=== PATIENT | female | born 1935 | race Caucasian/White ===

== ENCOUNTER 2016-07-29 04:35 | Emergency (ER) | payer OTHER ==
[~2016-07-29] VITALS: Ht 160 cm; Wt 56.0 kg
[~2016-07-29 04:35] MED LIST: ATEN-175 PO; MULT-188 PO
[2016-07-29 04:39] VITALS: TEMP 36.3; Ht 160 cm; Wt 56.0 kg
[2016-07-29] MEDS ORDERED: MoRPHine SULFATE 4 MG/ML 1 ML CARP\\VIAL IV STA (04:52)
[2016-07-29] MEDS ORDERED: ATEN50TA PO (04:57)
--- NOTE | 2016-07-29 05:15 | EMERGENCY ROOM VISIT NOTE ---
History Report prepared by Elana: Paris Ro Under the Supervision of: Dr. Amanda Carty D.O. First contact with patient: 04:41 Chief Complaint: FALL Stated Complaint: FALL RIB PAIN History of Present Illness The patient is a 81 year old female who presents to the Emergency Room with complaints of persistent left sided rib pain staring 36 hours FISHER TRAMMEL NET. The patient rates the pain as an 8/10 in severity and states it feels "like someone is hitting me with a baseball bat." According to EMS personal the patient fell 36 hours FISHER TRAMMEL NET and had increased pain and received morphine and Zofran during transportation to the ED. The patient states that she fell back up getting into a chair. She denies hitting her head, neck pain, abdominal pain, knee pain, buttock pain, nausea, vomiting or cough. The patient states that along with the pain she feels a little short of breath but believe it also might be nerves. She states that after receiving the medication in the ambulance she has some relief of the pain. The patient states that she fell out of her bed and broke her left clavicle but states she does not have any shoulder pain. The patient states she took ibuprofen for the pain at home but it did not relive the pain. Source of History: patient, EMS Onset: 36 hours BLAZE Symptom Intensity: 8/10 Timing: other (persistent) Modifying Factors (Relieving): other (Morphine and Zofran) Associated Symptoms: + SOB, No abdominal pain, No cough, No nausea, No neck pain, No vomiting Note: Patient denies any left should pain, knee pain or buttock pain. Review of Systems See HPI for pertinent positives & negatives. A total of 10 systems reviewed and were otherwise negative. Past Medical & Surgical Medical Problems: (1) Acute renal failure (ARF) (2) Hypertension Family History Noncontributory secondary to age Social History Smoking Status: Former Smoker Marital Status: Housing Status: lives alone Occupation Status: retired Current/Historical Medications Scheduled Atenolol (Tenormin), 50 MG PO DAILY Multiple Vitamins W/ Minerals (Ocuvite), 1 TAB PO QAM Allergies Coded Allergies: No Known Allergies (Unverified , 07/23/16) Physical Exam Vital Signs Date Time Temp Pulse Resp B/P Pulse Ox O2 Delivery O2 Flow Rate FiO2 07/29/16 06:02 66 18 101/54 95 Room Air 07/29/16 04:39 36.3 74 18 151/100 97 Room Air Physical Exam HEENT: Head - normocephalic and atraumatic Pupils are equal, round, and reactive to light. Extraocular eye muscles are intact, and sclera are anicteric. Nose - moist nasal mucosa without discharge. Mouth - moist buccal mucosa. Oropharynx is nonerythematous and there is no tonsillar exudate or edema noted. Neck: Supple; no JVD, nuchal rigidity, cervical lymphadenopathy. Heart: Regular rate and rhythm. There is a normal S1 and S2 with no murmurs, clicks, or gallops appreciated. Lungs: Clear to auscultation bilaterally with no wheezes, rales, or rhonchi. Chest: Pain with palpation at the left sided midaxillary line lateral to the breast tissue and underneath the left breast. No obvious trauma noted to the patient's left chest. Abdomen: Soft, completely nontender, nondistended, with good bowel sounds. There are no palpable pulsatile masses or hepatosplenomegaly. There is no guarding, rigidity, or rebound noted. Extremities: No evidence of cyanosis, clubbing, or edema. There are easily palpable peripheral pulses. Skin: warm and dry with good turgor and no rashes. Medical Decision & Procedures ER Provider Diagnostic Interpretation: CT results as stated below per my review and radiologist interpretation: Preliminary Findings Only--See Final Report For Complete Findings CT CHEST Without Contrast: Centrilobular emphysema. Bibasilar atelectasis and/or scarring. 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 Trace pericardial effusion Small hiatal hernia. Simple cyst within both kidneys. Multiple subacute to chronic appearing rib features, bilaterally. No acute fracture identified. Stable nodule within the right breast measuring up to 15 mm. Correlation with mammogram is recommended Radiologist: Gigi Billy MD Study ready at 0533 and initial results transmitted at 0540 Medications Administered Medications (Trade) Dose Ordered Sig/[place] Route Start Time Stop Time Status Last Admin Dose Admin Morphine Sulfate (MoRPHine SULFATE INJ) 2 mg NOW STAT IV 07/29/16 04:52 07/29/16 04:53 DC 07/29/16 04:57 2 MG Procedure Medications Administered: Morphine Sulfate ED Course 0447: Past medical records reviewed. The patient was evaluated in room B11B. A complete history and physical exam was performed. 0452: Ordered Morphine Sulfate 2 mg IV. The patient went for CT scan of the chest to rule out new rib fractures. 0549: Upon reevaluation, the patient is feeling better after the Morphine. I discussed findings and results with the patient and her daughter who was at her bedside. I discussed outpatient pain medication and they would like to use ibuprofen because the patient hallucinated after using Tramadol and Hydrocodone. The patient verbalized agreement of the treatment plan. The patient was discharged home. Medical Decision The patient is a 81 year old female who presents to the ED with left side rib pain. Differential diagnosis includes rib fracture, chest wall contusion, and pneumothorax. Patient presents to the emergency department after falling and suffering some left-sided chest wall pain. CT scan the chest shows no obvious fractures. The patient had significant relief of the discomfort With IV morphine. She is comfortable at the time of discharge. I've asked the patient to take every precaution to avoid further falls at her age. Impression Primary Impression: Contusion of left chest wall Additional Impression: Fall Scribe Attestation The scribe's documentation has been prepared under my direction and personally reviewed by me in its entirety. I confirm that the note above accurately reflects all work, treatment, procedures, and medical decision making performed by me. Departure Information Dispostion Home / Self-Care Referrals RV. Contreras MD (PCP) Forms HOME CARE DOCUMENTATION FORM, IMPORTANT VISIT INFORMATION Patient Instructions A Signature Page, My [facility] [employer] Additional Instructions Rest. Apply heat to the left rib cage. Ibuprofen - 600mg every 6-8 hours for pain. Do deep breathing exercises Follow up with PCP for a recheck
[2016-07-29 06:02] VITALS: BP 101/54; PULSE 66; O2SAT 95
--- NOTE | 2016-07-29 07:22 | DIAGNOSTIC IMAGING REPORT ---
CT OF THE CHEST WITHOUT IV CONTRAST CLINICAL HISTORY: Fall. Left-sided rib pain. Evaluate left-sided rib fractures. COMPARISON STUDY: Chest CT April 29, 2016 and chest radiograph July 18, 2016. CT DOSE: 193.16 mGy.cm TECHNIQUE: Axial images of the chest were obtained without IV contrast. Images were reviewed in the axial, sagittal, and coronal planes. IV contrast was not administered for this examination. FINDINGS: No enlarged thoracic lymph nodes are present. Mild cardiomegaly is unchanged. There is no pericardial effusion. Aneurysmal dilatation of the descending thoracic aorta is unchanged since CT of April 29, 2016. The aorta measures up to 4.3 cm. A small focal outpouching of the proximal descending thoracic aorta is unchanged. There is a trace left pleural effusion. Moderate emphysema is noted. No acute rib fractures are identified. There are numerous subacute to chronic bilateral rib fractures. There is an old T11 compression fracture as well as an old L2 compression fracture. A 1.5 cm nodule within the upper outer quadrant right breast is again noted. Visualized portions of the upper abdomen demonstrates suspected bilateral renal cysts. IMPRESSION: 1. No pneumothorax. Multiple subacute to chronic appearing bilateral rib fractures. No acute rib fracture identified. 2. Moderate emphysema. 3. Stable aneurysmal dilatation of the descending thoracic aorta since CT of April 29, 2016, measuring up to 4.3 cm. 4. 1.5 cm right breast nodule. A follow-up nonemergent mammogram and ultrasound are recommended. Electronically signed by: Randall Dahl M.D. 07/29/2016 7:21 AM
[2016-08-11] MEDS ORDERED: CEFD1CAP14 PO (11:59)
[2016-08-11] MEDS ORDERED: VTMD PO (11:59)
[2016-08-11] MEDS ORDERED: VTMD1000 PO (11:59)
== END 2016-07-29 06:22 | disposition home or self-care (01) ==
LOC: EDBD 04:35 → C.EDB 04:38
DX: S20.20XA Contusion of thorax, unspecified, initial encounter (principal); W07.XXXA Fall from chair, initial encounter; I10 Essential (primary) hypertension; Z87.891 Personal history of nicotine dependence

== ENCOUNTER 2016-08-04 08:35 | Emergency (ER) | payer OTHER ==
[~2016-08-04] VITALS: Ht 160 cm; Wt 55.0 kg
[~2016-08-04 08:35] MED LIST changes: -ATEN-175 PO; +ATEN50TA PO
[2016-08-04 08:40] VITALS: TEMP 36.3; Ht 160 cm; Wt 55.0 kg
[2016-08-04 09:28] VITALS: O2SAT 95
[2016-08-04 09:36] LABS: BASO % 0.3 %; BASO ABS # 0.04 K/uL (0-0.2); COMPLETE YES; EOS % 0.1 %; HEMATOCRIT 38.8 % (37-47); IG% 0.6 %; LYMPH % 9.7 %; LYMPH ABS # 1.36 K/uL (1.2-3.4); MEAN CELL VOLUME 90.7 fL (80-100); MEAN CORPUSCULAR HEMOGLOBIN 31.5 pg (25-34); MEAN CORPUSCULAR HGB CONC 34.8 g/dl (32-36); MEAN PLATELET VOLUME 9.6 fL (7.4-10.4); MONO % 9.2 %; NEUT % 80.1 %; PLATELET COUNT 395 K/uL (130-400); RED BLOOD COUNT 4.28 M/uL (4.2-5.4); WHITE BLOOD COUNT 14.06 K/uL (4.8-10.8)
[2016-08-04 09:43] LABS: BUN/CREATININE RATIO 24.1 (10-20); CALCIUM 9.5 mg/dl (8.5-10.1); CREATININE 0.74 mg/dl (0.60-1.20); POTASSIUM 3.3 mmol/L (3.5-5.1)
[2016-08-04 09:48] LABS: ALB/GLOB RATIO 0.6 (0.9-2); CKMB/CK RATIO 3.6 (0-3.0); INR 1.1 (0.9-1.1); PARTIAL THROMBOPLASTIN RATIO 1.2; PROTHROMBIN TIME (PATIENT) 11.6 SECONDS (9.0-12.0)
--- NOTE | 2016-08-04 10:05 | DIAGNOSTIC IMAGING REPORT ---
CHEST ONE VIEW PORTABLE HISTORY: Short of breath. COMPARISON: Chest CT 07/29/2016. FINDINGS: There are new patchy airspace opacities within the right mid to lower lung zone. The left lung remains clear. No pneumothorax. Stable blunting of the costophrenic sulci. The heart remains mildly enlarged. There is a tortuous/ectatic thoracic aorta, unchanged. Bilateral rib fractures are again noted. These are likely old. IMPRESSION: Interval development of a right mid to lower lung zone patchy airspace opacity. This likely represents a developing pneumonia. Recommend follow-up to resolution. Electronically signed by: Grover Tomlinson M.D. 08/04/2016 10:04 AM Dictated Date/Time: 08/04/2016 10:02 AM
--- NOTE | 2016-08-04 10:20 | EMERGENCY ROOM VISIT NOTE ---
History Report prepared by Elana: Jasmina Odom Under the Supervision of: Dr. Darrell Sanchez M.D. First contact with patient: 10:06 Chief Complaint: RESPIRATORY PROBLEMS Stated Complaint: COLD/FLU, COUGHING, DIFFICULTY BREATHING Nursing Triage Summary: pt to the ED for resp SOb for the past couple weeks saw PMD and xray did not show anything. pt called daughter today for worsening SOB and feeling off balance. +cough nonproductivce rib fx in march and has continued rib pain on the left side History of Present Illness The patient is an 81 year old female who presents to the Emergency Room with complaints of persistent shortness of breath for the past month, but has worsened within the past two weeks. The patient states that over the past month she has been becoming short of breath with walking short distances, but states that she has a small apartment so she does not walk very far. She states that she has been experiencing a nonproductive cough. The patient denies any history of lung problems. She notes that last week she was vomiting last week, but states that it has resolved. The patient reports normal urination, normal bowel movements, and normal appetite. She reports slight ankle swelling in her left greater than right. The patient notes a fall in March, stating that she broke her collar bone. The patient's daughter notes that the patient has been having shortness of breath intermittently for the past several months. She states that the patient has a stress echocardiogram scheduled for Friday. Source of History: patient Onset: past month Position: other (global) Quality: other (shortness of breath) Timing: worsening, other (persistent) Associated Symptoms: + cough (nonproductive), No urinary symptoms Note: Associated Symptoms: ankle swelling in left greater than right. Review of Systems All systems have been listed, reviewed, and are negative other than those previously mentioned. Please see Additional Medical History Sheet. Past Medical & Surgical Medical Problems: (1) Acute renal failure (ARF) (2) Hypertension Family History Noncontributory secondary to age Social History Smoking Status: Former Smoker Marital Status: Housing Status: lives alone Occupation Status: retired Current/Historical Medications Scheduled Atenolol (Tenormin), 50 MG PO DAILY Levofloxacin (Levaquin), 1 TAB PO DAILY Multiple Vitamins W/ Minerals (Ocuvite), 1 TAB PO QAM Scheduled PRN Albuterol Hfa (Ventolin Hfa), 2 PUFFS INH Q4 PRN for cough/shortness of breath Allergies Coded Allergies: No Known Allergies (Unverified , 08/04/16) Physical Exam Vital Signs Date Time Temp Pulse Resp B/P Pulse Ox O2 Delivery O2 Flow Rate FiO2 08/04/16 11:10 78 20 160/69 97 08/04/16 09:28 95 Room Air 08/04/16 08:50 75 08/04/16 08:46 97 Room Air 08/04/16 08:40 36.3 86 18 124/70 96 Room Air Physical Exam GENERAL: Patient awake, alert, oriented x 3. Patient follows commands. Patient does not appear toxic. Patient is adequately hydrated and well- nourished. SKIN: No erythema, pallor, cyanosis or rash HEENT: Normal head, pupils equal, reactive to light and accommodation. Ears normal. Oral cavity and posterior pharynx appear normal. Neck: Without adenopathy, no neck vein distention. LUNGS: Rhett wheeze in the right side with decreased air movement. No rales, no rhonchi. HEART: No murmurs. No gallops. No rubs ABDOMEN: No masses, no rebound, no hepatomegaly or splenomegaly. EXTREMITIES: 1+ pretibial edema, left greater than right. No signs of trauma. No calf or thigh tenderness. NEUROLOGIC: Cranial nerves II-XII within normal limits. No gross motor sensory function deficits. Medical Decision & Procedures ER Provider Diagnostic Interpretation: X ray results are stated below per my interpretation and the radiologist's interpretation. CHEST ONE VIEW PORTABLE HISTORY: Short of breath. COMPARISON: Chest CT 07/29/2016. FINDINGS: There are new patchy airspace opacities within the right mid to lower lung zone. The left lung remains clear. No pneumothorax. Stable blunting of the costophrenic sulci. The heart remains mildly enlarged. There is a tortuous/ectatic thoracic aorta, unchanged. Bilateral rib fractures are again noted. These are likely old. IMPRESSION: Interval development of a right mid to lower lung zone patchy airspace opacity. This likely represents a developing pneumonia. Recommend follow-up to resolution. Electronically signed by: Grover Tomlinson M.D. 08/04/2016 10:04 AM Dictated Date/Time: 08/04/2016 10:02 AM Laboratory Results 1/8/17 09:05 Red Blood Count 4.28, Mean Corpuscular Volume 90.7, Mean Corpuscular Hemoglobin 31.5, Mean Corpuscular Hemoglobin Concent 34.8, Mean Platelet Volume 9.6, Neutrophils (%) (Auto) 80.1, Lymphocytes (%) (Auto) 9.7, Monocytes (%) (Auto) 9.2, Eosinophils (%) (Auto) 0.1, Basophils (%) (Auto) 0.3, Neutrophils # (Auto) 11.27, Lymphocytes # (Auto) 1.36, Monocytes # (Auto) 1.29, Eosinophils # (Auto) 0.02, Basophils # (Auto) 0.04 08/04/16 09:05 Test 08/04/16 09:05 08/04/16 09:32 White Blood Count 14.06 K/uL (4.8-10.8) Red Blood Count 4.28 M/uL (4.2-5.4) Hemoglobin 13.5 g/dL (12.0-16.0) Hematocrit 38.8 % (37-47) Mean Corpuscular Volume 90.7 fL (80-100) Mean Corpuscular Hemoglobin 31.5 pg (25-34) Mean Corpuscular Hemoglobin Concent 34.8 g/dl (32-36) Platelet Count 395 K/uL (130-400) Mean Platelet Volume 9.6 fL (7.4-10.4) Neutrophils (%) (Auto) 80.1 % Lymphocytes (%) (Auto) 9.7 % Monocytes (%) (Auto) 9.2 % Eosinophils (%) (Auto) 0.1 % Basophils (%) (Auto) 0.3 % Neutrophils # (Auto) 11.27 K/uL (1.4-6.5) Lymphocytes # (Auto) 1.36 K/uL (1.2-3.4) Monocytes # (Auto) 1.29 K/uL (0.11-0.59) Eosinophils # (Auto) 0.02 K/uL (0-0.5) Basophils # (Auto) 0.04 K/uL (0-0.2) RDW Standard Deviation 45.3 fL (36.4-46.3) RDW Coefficient of Variation 13.8 % (11.5-14.5) Immature Granulocyte % (Auto) 0.6 % Immature Granulocyte # (Auto) 0.08 K/uL (0.00-0.02) Prothrombin Time 11.6 SECONDS (9.0-12.0) Prothromb Time International Ratio 1.1 (0.9-1.1) Activated Partial Thromboplast Time 31.7 SECONDS (21.0-31.0) Partial Thromboplastin Ratio 1.2 Anion Gap 11.0 mmol/L (3-11) Est Creatinine Clear Calc Drug Dose 47.6 ml/min Estimated GFR () 86.8 Estimated GFR (Non- 74.9 BUN/Creatinine Ratio 24.1 (10-20) Calcium Level 9.5 mg/dl (8.5-10.1) Total Bilirubin 0.5 mg/dl (0.2-1) Aspartate Amino Transf (AST/SGOT) 15 U/L (15-37) Alanine Aminotransferase (ALT/SGPT) 20 U/L (12-78) Alkaline Phosphatase 158 U/L (45-117) Total Creatine Kinase 45 U/L (26-192) Creatine Kinase MB 1.6 ng/ml (0.5-3.6) Creatine Kinase MB Ratio 3.6 (0-3.0) Total Protein 8.0 gm/dl (6.4-8.2) Albumin 3.1 gm/dl (3.4-5.0) Globulin 4.9 gm/dl (2.5-4.0) Albumin/Globulin Ratio 0.6 (0.9-2) Bedside Troponin I 0.000 ng/ml (0-0.045) Laboratory results as stated above per my review. ECG Indication: SOB/dyspnea Rate (beats per minute): 71 Rhythm: normal sinus Findings: no acute ischemic change, no ectopy ED Course 1007: Past medical records reviewed. The patient was evaluated in room C4. A complete history and physical examination was performed. I discussed all the exam findings with her and I discussed the treatment plan. She verbalized complete understanding and agreement. She is ready to go home. Medical Decision Nurses notes reviewed. Medical history sheet reviewed. Differential diagnosis includes but is not limited to: congestive heart failure, pneumonia, bronchitis , upper respiratory infection. Multiple labs, EKG and imaging were obtained. Please see above. The patient has slight elevation of her white count. Chest x-ray is consistent with right lower lobe pneumonia. The patient will be placed on Levaquin. The patient was also given a prescription for an inhaler to help immediately with her shortness of breath. The patient is to follow-up with her family physician. I believe the patient is stable enough despite her age to return home and continue antibiotics at home. Impression Primary Impression: Pneumonia Scribe Attestation The scribe's documentation has been prepared under my direction and personally reviewed by me in its entirety. I confirm that the note above accurately reflects all work, treatment, procedures, and medical decision making performed by me. Departure Information Dispostion Home / Self-Care Prescriptions Albuterol Hfa (VENTOLIN HFA) 200 Puffs/06587 Mcg Aers 2 PUFFS INH Q4 Y for cough/shortness of breath, #1 INHALER Dispense with chamber Prov: Darrell Sanchez M.D. 08/04/16 Levofloxacin (LEVAQUIN) 500 Mg Tab 1 TAB PO DAILY for 10 Days, #10 TAB Prov: Darrell Sanchez M.D. 08/04/16 Referrals RV. Contreras MD (PCP) Forms HOME CARE DOCUMENTATION FORM, IMPORTANT VISIT INFORMATION Patient Instructions A Signature Page, ED Pneumonia, Levofloxacin Oral tablet, My [facility] [employer] Additional Instructions Take 1 Levaquin daily for 10 days. 2 puffs of your inhaler every 4 hours as needed for shortness of breath or cough. Continue all of your current medications as prescribed. Follow-up with your family physician within the next 10 days. Return here sooner if you become more short of breath.
[2016-08-04] MEDS ORDERED: LEVO1TAB34 PO (10:32)
[2016-08-04] MEDS ORDERED: VNTHFA/IN INH (10:32)
[2016-08-04 11:10] VITALS: BP 160/69; PULSE 78; O2SAT 97
[2016-08-11] MEDS ORDERED: VTMD1000 PO (11:59)
[2016-08-11] MEDS ORDERED: CEFD1CAP14 PO (11:59)
[2016-08-11] MEDS ORDERED: VTMD PO (11:59)
== END 2016-08-04 11:13 | disposition home or self-care (01) ==
LOC: C.EDB 08:37 → C.EDC 11:13
DX: J18.9 Pneumonia, unspecified organism (principal); N17.9 Acute kidney failure, unspecified; I10 Essential (primary) hypertension; Z87.891 Personal history of nicotine dependence; Z79.899 Other long term (current) drug therapy

== ENCOUNTER 2016-08-09 14:21 | Inpatient (IN) | payer OTHER ==
[~2016-08-09] VITALS: Ht 160 cm; Wt 54.1 kg
[~2016-08-09 14:21] MED LIST changes: +LEVO1TAB34 PO; +VNTHFA/IN INH
[2016-08-09 14:58] LABS: BASO % 0.4 %; BASO ABS # 0.06 K/uL (0-0.2); COMPLETE YES; EOS % 1.1 %; HEMATOCRIT 35.8 % (37-47); IG% 0.9 %; LYMPH % 16.3 %; LYMPH ABS # 2.18 K/uL (1.2-3.4); MEAN CELL VOLUME 90.2 fL (80-100); MEAN CORPUSCULAR HEMOGLOBIN 30.5 pg (25-34); MEAN CORPUSCULAR HGB CONC 33.8 g/dl (32-36); MEAN PLATELET VOLUME 9.1 fL (7.4-10.4); MONO % 7.4 %; NEUT % 73.9 %; PLATELET COUNT 463 K/uL (130-400); RED BLOOD COUNT 3.97 M/uL (4.2-5.4); WHITE BLOOD COUNT 13.35 K/uL (4.8-10.8)
--- NOTE | 2016-08-09 15:05 | DIAGNOSTIC IMAGING REPORT ---
CHEST ONE VIEW PORTABLE CLINICAL HISTORY: Shortness of breath. COMPARISON STUDY: Chest CT July 29, 2016 and chest radiograph August 04, 2016. FINDINGS: A distal left clavicular internal fixation is again noted. Cardiomegaly is unchanged. Dilatation of the thoracic aorta is unchanged. There is no pneumothorax. Numerous bilateral rib fractures, left more numerous than right, are again noted. These were shown on prior exam of August 04, 2016. Mild left basilar opacity is present. There is no evidence of pulmonary edema. Right lower lung airspace opacity is slightly increased. IMPRESSION: 1. Increasing right lower lung opacity which could reflect pneumonia or atelectasis. 2. Minimal left basilar opacity which favors atelectasis. 3. Redemonstration of numerous subacute to chronic rib fractures. No pneumothorax. Electronically signed by: Randall Dahl M.D. 08/09/2016 3:04 PM Dictated Date/Time: 08/09/2016 3:01 PM
[2016-08-09 15:08] LABS: INR 1.1 (0.9-1.1); PARTIAL THROMBOPLASTIN RATIO 1.2; PROTHROMBIN TIME (PATIENT) 11.4 SECONDS (9.0-12.0)
[2016-08-09 15:17] LABS: BUN/CREATININE RATIO 22.2 (10-20); CALCIUM 8.9 mg/dl (8.5-10.1); CREATININE 0.78 mg/dl (0.60-1.20); POTASSIUM 2.9 mmol/L (3.5-5.1)
[2016-08-09 15:22] LABS: ALB/GLOB RATIO 0.7 (0.9-2); CKMB/CK RATIO 3.2 (0-3.0)
--- NOTE | 2016-08-09 15:22 | DIAGNOSTIC IMAGING REPORT ---
HEAD CT NONCONTRAST CT DOSE: 537.48 mGy.cm HISTORY: Left-sided numbness. Short of breath. TECHNIQUE: Multiaxial CT images of the head were performed without the use of intravenous contrast. Automated exposure control was utilized for this study. Comparison: Head CT 05/19/2016. Findings: The paranasal sinuses and mastoid air cells are clear. The calvarium and skull base are intact. There is no mass, hematoma, midline shift, acute infarct. White matter hypodensity is nonspecific but suggestive of microvascular ischemic change. The ventricles and sulci demonstrate mild age-related involutional changes. Impression: No acute intracranial abnormality. Atrophy and microvascular ischemic changes. Electronically signed by: Grover Tomlinson M.D. 08/09/2016 3:20 PM Dictated Date/Time: 08/09/2016 3:16 PM
[2016-08-09] MEDS ORDERED: POTASSIUM CHLORIDE 10 MEQ TABCR PO STA (15:37)
[2016-08-09] MEDS ORDERED: OPTIRAY 320 IV PRN (15:45)
--- NOTE | 2016-08-09 16:39 | DIAGNOSTIC IMAGING REPORT ---
CT ANGIOGRAM OF THE CHEST CLINICAL HISTORY: Dyspnea. COMPARISON STUDY: Chest CT dated 07/29/2016 and 04/29/2016. TECHNIQUE: Following the IV administration of 97 cc of Optiray 320, CT angiogram of the chest was performed from the upper abdomen to the thoracic inlet utilizing the pulmonary embolus protocol. Images are reviewed in the axial, sagittal, and coronal planes. 3-D MIPS images are created and assessed. IV contrast was administered without complication. The examination is degraded by streak artifact from the left arm which could not be elevated above the chest. The examination is also degraded by motion artifact. CT DOSE: 302.08 mGy.cm FINDINGS: Thyroid: Atrophic. Thoracic aorta: There is advanced atherosclerotic disease involving the thoracic aorta. The arch demonstrates standard 3-vessel anatomy. The ascending thoracic aorta and the aortic arch are normal in caliber. There is aneurysmal dilatation of the descending thoracic aorta which measures up to 4.2 cm proximally and up to 3.9 cm just above the esophageal hiatus. This is similar in appearance to prior examinations. Intraluminal thrombus is identified. No dissection is seen. Pulmonary vasculature: The pulmonary trunk is normal in caliber. There are no filling defects identified in main, lobar, or segmental pulmonary branches to suggest pulmonary embolus. Heart: The heart is significantly enlarged and there is a trace pericardial effusion. The coronary arteries are densely calcified. Lungs and pleural spaces: Evaluation of the lung parenchyma is degraded by respiratory motion artifact. Emphysema is observed. The trachea and central airways appear clear. There is patchy airspace consolidation in the right upper and right lower lobes, most confluent at the right lung base. Minimal consolidative change is also seen at the left lung base. This is new from 07/29/2016 and typical appearance for pneumonia. Fat-containing Bochdalek hernias are present at both lung bases. There is a trace right pleural effusion. Mediastinum: There are scattered subcentimeter mediastinal lymph nodes. These are not pathologically enlarged by size criteria. Sherry: Clear. Axillae: There is no axillary lymphadenopathy. Upper abdomen: The visualized kidneys demonstrate cortical atrophy. Cysts are seen in the upper poles measuring up to 7 cm on the right. There is glandular atrophy of the imaged pancreas. Skeletal structures: The skeletal structures are osteopenic. Advanced degenerative change and hyperkyphosis is noted throughout the thoracic spine. No lytic or blastic bony lesions are seen. There is a severe compression deformity of T12 and a moderate compression deformity of L3. There are numerous healed bilateral rib fractures. Soft tissues: Again seen is a 1.6 cm irregular nodule in the right breast seen on image #161. IMPRESSION: 1. There is no evidence of pulmonary embolus in the main, lobar, or segmental pulmonary arteries. 2. Cardiomegaly and emphysema. 3. There is patchy airspace consolidation throughout the right lung, most confluent at the right lung base. Minimal patchy consolidative change is also seen in the left lung base. The appearance is typical for pneumonia/aspiration pneumonitis. Clinical correlation will be required and radiographic follow-up to resolution is recommended. 4. 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 5. Trace right pleural effusion. 6. Again seen is a 1.6 cm irregular nodule in the right breast. This is indeterminant. Follow-up with an outpatient mammogram ultrasound is again recommended. 7. Additional findings as above. Electronically signed by: Antoine Laird M.D. 08/09/2016 4:37 PM Dictated Date/Time: 08/09/2016 4:26 PM
[2016-08-09] MEDS ORDERED: CEFEPIME IV 1,000 MG in DEXTROSE 5% 100ML 100 ML IV STA (16:58)
[2016-08-09] MEDS ORDERED: MoRPHine SULFATE 4 MG/ML 1 ML CARP\\VIAL IV STA (17:14)
--- NOTE | 2016-08-09 18:04 | History and Physical ---
History & Physical Date & Time of Service: Aug 09, 2016 at 17:35 Chief Complaint: Shortness Of Breath Primary Care Physician: RV. Contreras MD History of Present Illness Source: patient, family (daughter) History taken from Mrs Lui and her daughter. Unfortunately slightly limited by her memory of events as she has some short term memory loss. Mrs Lui is an 81 yo female who came to the ER today after feeling suddenly short of breath for 15 minutes around 12:30pm. She denies having chest pain at this time, it occurred at rest, associated with some nausea, worse on exertion ( when she got the phone to call her daughter), improved with time and lying down on the couch. She denies usually having orthopnea, PND (although her daughter mentions she told her once she woke up SOB at night), claudication or palpitations. Her shortness of breath had resolved by the time her daughter had come to see her. She also is concerned about leg swelling which is worse on her left side. She is unsure how long it has been there but it was noted on her previous ER visit 5 days previously. She feels it has become worse since then. Left leg/ankle numbness without motor weakness - history is slightly unclear with this initially she told me she first had it suddenly come on at 9am while walking. She was unable to feel her foot at that time but could lift it up normally, it has been slowly getting better since then but she has some residual numbness. No other part of her body was affected. On further questioning she tells me this numbness has been coming and going for at least a few days and she relates it to her ankle swelling (although her foot felt normal this morning). She also has acute on chronic back pain in the lumbar region. This has been present to some degree since March when she fell (found herself on the floor out of bed but cannot remember how she got there). It got suddenly worse this morning around 10:30am while walking into living room severity 5-6/10 which progressed to 8/10 at worse while moving. Currently severity 0/10 as long as she doesn't move, worse on palpation. No incontinence of urine or bowels. No fevers chills in last 24 hours. Shortness of breath then occurred around 12:30am (see above). She has been SOBOE for a few months and dropped her O2 sats in office with PCP on Jul 18. Arranged a stress echo which she is yet to have as she cancelled the initial appointment. Vision blurring - occurred for a few seconds in the ER. 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 Vision now back to normal. In regards to the incidental breast nodule on CT she has not noticed a breast lump previously. Last mammogram - approximately 1 year ago reportedly normal by patient. She notes her mother of breast ca. at 78 yo. 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) Allergies Coded Allergies: No Known Allergies (Unverified , 08/09/16) Home Medications Scheduled Atenolol (Tenormin), 50 MG PO DAILY Levofloxacin (Levaquin), 1 TAB PO DAILY Multiple Vitamins W/ Minerals (Ocuvite), 1 TAB PO QAM Scheduled PRN Albuterol Hfa (Ventolin Hfa), 2 PUFFS INH Q4 PRN for cough/shortness of breath Review of Systems Constitutional: No chills, No fever Eyes: + worsening of vision, No diplopia, No discharge, No eye pain, No redness Cardiovascular: + edema, No PND, No chest pain, No claudication, No orthopnea, No palpitations Abdomen: + nausea, No GI bleeding, No constipation, No diarrhea, No pain, No vomiting Musculoskeletal: No calf pain, No joint pain, No muscle pain Genitourinary - Female: No dysuria, No urinary frequency, No urinary incontinence, No urinary retention, No urinary urgency Neurologic: + memory loss Psychiatric: + depression symptoms (stopped paxil 6 weeks ago) Endocrine: + fatigue Hematologic / Lymphatic: No abnormal bleeding/bruising Integumentary: No itch, No rash Physical Exam Vital Signs Date Time Temp Pulse Resp B/P Pulse Ox O2 Delivery O2 Flow Rate FiO2 08/09/16 16:43 82 24 151/62 100 Nasal Cannula 2.0 08/09/16 15:16 72 16 161/102 98 Room Air 08/09/16 14:38 70 08/09/16 14:26 94 Nasal Cannula 2.0 08/09/16 14:25 85 Room Air 08/09/16 14:25 36.5 74 22 155/99 85 Room Air General Appearance: WD/WN, no apparent distress Head: normocephalic, atraumatic Eyes: normal inspection, PERRL, EOMI (no double vision) ENT: hearing grossly normal, pharynx normal Neck: no JVD, trachea midline Respiratory/Chest: chest non-tender, no respiratory distress, no accessory muscle use, + decreased breath sounds (more decreased on right side, no wheezing , fine crackles throughout, poor inspiratory effort), + pertinent finding ( breast lump at 10 'o' clock right breast approximateyl 1 cm fixed to skin, firm but fluctuant, smooth, well circumsized, appearance of cystic structure) Cardiovascular: regular rate, rhythm, no murmur, normal peripheral pulses Abdomen/GI: normal bowel sounds, non tender, soft Back: no CVA tenderness, + pertinent finding (central spinal tenderness approximateyl L3) Extremities/Musculoskelatal: normal inspection, no calf tenderness, normal capillary refill, normal range of motion, + pedal edema (2+ b/l at ankles left worse than right) Neurologic/Psych: senior interactive producer II-XII nml as tested (PERRL, EOMI, nofacial numbness, mastication muscles equal, no facial droop, hearing grossly normal b/l, no change in speech or swallowing, uvula central, no tongue weakness, SCM and trapezius intact), no motor/sensory deficits (no motor weakness, upper limb sensation intact), alert, normal mood/affect, oriented x 3, + sensory deficit ( L3-L5 sensation on left side reduced, difficult examination however and difference minimal, no pain or tingling) Skin: normal color, warm/dry, no rash Diagnostics Laboratory Results Results Past 24 Hours Test 08/09/16 14:01 Range/Units White Blood Count 13.35 4.8-10.8 K/uL Red Blood Count 3.97 4.2-5.4 M/uL Hemoglobin 12.1 12.0-16.0 g/dL Hematocrit 35.8 37-47 % Mean Corpuscular Volume 90.2 80-100 fL Mean Corpuscular Hemoglobin 30.5 25-34 pg Mean Corpuscular Hemoglobin Concent 33.8 32-36 g/dl Platelet Count 463 130-400 K/uL Mean Platelet Volume 9.1 7.4-10.4 fL Neutrophils (%) (Auto) 73.9 % Lymphocytes (%) (Auto) 16.3 % Monocytes (%) (Auto) 7.4 % Eosinophils (%) (Auto) 1.1 % Basophils (%) (Auto) 0.4 % Neutrophils # (Auto) 9.85 1.4-6.5 K/uL Lymphocytes # (Auto) 2.18 1.2-3.4 K/uL Monocytes # (Auto) 0.99 0.11-0.59 K/uL Eosinophils # (Auto) 0.15 0-0.5 K/uL Basophils # (Auto) 0.06 0-0.2 K/uL RDW Standard Deviation 46.2 36.4-46.3 fL RDW Coefficient of Variation 13.9 11.5-14.5 % Immature Granulocyte % (Auto) 0.9 % Immature Granulocyte # (Auto) 0.12 0.00-0.02 K/uL Prothrombin Time 11.4 9.0-12.0 SECONDS Prothromb Time International Ratio 1.1 0.9-1.1 Activated Partial Thromboplast Time 30.6 21.0-31.0 SECONDS Partial Thromboplastin Ratio 1.2 D-Dimer 4160 0-500 ug/L FEU Sodium Level 142 136-145 mmol/L Potassium Level 2.9 3.5-5.1 mmol/L Chloride Level 104 98-107 mmol/L Carbon Dioxide Level 28 21-32 mmol/L Anion Gap 10.0 3-11 mmol/L Blood Urea Nitrogen 17 7-18 mg/dl Creatinine 0.78 0.60-1.20 mg/dl Est Creatinine Clear Calc Drug Dose 45.2 ml/min Estimated GFR () 81.5 Estimated GFR (Non- 70.3 BUN/Creatinine Ratio 22.2 10-20 Random Glucose 107 70-99 mg/dl Calcium Level 8.9 8.5-10.1 mg/dl Total Bilirubin 0.2 0.2-1 mg/dl Aspartate Amino Transf (AST/SGOT) 10 15-37 U/L Alanine Aminotransferase (ALT/SGPT) 18 12-78 U/L Alkaline Phosphatase 107 45-117 U/L Total Creatine Kinase 37 26-192 U/L Creatine Kinase MB 1.2 0.5-3.6 ng/ml Creatine Kinase MB Ratio 3.2 0-3.0 Troponin I < 0.015 0-0.045 ng/ml Pro-B-Type Natriuretic Peptide 1034 0-1800 pg/ml Total Protein 7.1 6.4-8.2 gm/dl Albumin 2.9 3.4-5.0 gm/dl Globulin 4.2 2.5-4.0 gm/dl Albumin/Globulin Ratio 0.7 0.9-2 Diagnostic Radiology CHEST ONE VIEW PORTABLE CLINICAL HISTORY: Shortness of breath. COMPARISON STUDY: Chest CT July 29, 2016 and chest radiograph August 04, 2016. FINDINGS: A distal left clavicular internal fixation is again noted. Cardiomegaly is unchanged. Dilatation of the thoracic aorta is unchanged. There is no pneumothorax. Numerous bilateral rib fractures, left more numerous than right, are again noted. These were shown on prior exam of August 04, 2016. Mild left basilar opacity is present. There is no evidence of pulmonary edema. Right lower lung airspace opacity is slightly increased. IMPRESSION: 1. Increasing right lower lung opacity which could reflect pneumonia or atelectasis. 2. Minimal left basilar opacity which favors atelectasis. 3. Redemonstration of numerous subacute to chronic rib fractures. No pneumothorax. Electronically signed by: Randall Dahl M.D. 08/09/2016 3:04 PM Dictated Date/Time: 08/09/2016 3:[address]AST CT DOSE: 537.48 mGy.cm HISTORY: Left-sided numbness. Short of breath. TECHNIQUE: Multiaxial CT images of the head were performed without the use of intravenous contrast. Automated exposure control was utilized for this study. Comparison: Head CT 05/19/2016. Findings: The paranasal sinuses and mastoid air cells are clear. The calvarium and skull base are intact. There is no mass, hematoma, midline shift, acute infarct. White matter hypodensity is nonspecific but suggestive of microvascular ischemic change. The ventricles and sulci demonstrate mild age-related involutional changes. Impression: No acute intracranial abnormality. Atrophy and microvascular ischemic changes. Electronically signed by: Grover Tomlinson M.D. 08/09/2016 3:20 PM Dictated Date/Time: 08/09/2016 3:[address] ANGIOGRAM OF THE CHEST CLINICAL HISTORY: Dyspnea. COMPARISON STUDY: Chest CT dated 07/29/2016 and 04/29/2016. TECHNIQUE: Following the IV administration of 97 cc of Optiray 320, CT angiogram of the chest was performed from the upper abdomen to the thoracic inlet utilizing the pulmonary embolus protocol. Images are reviewed in the axial, sagittal, and coronal planes. 3-D MIPS images are created and assessed. IV contrast was administered without complication. The examination is degraded by streak artifact from the left arm which could not be elevated above the chest. The examination is also degraded by motion artifact. CT DOSE: 302.08 mGy.cm FINDINGS: Thyroid: Atrophic. Thoracic aorta: There is advanced atherosclerotic disease involving the thoracic aorta. The arch demonstrates standard 3-vessel anatomy. The ascending thoracic aorta and the aortic arch are normal in caliber. There is aneurysmal dilatation of the descending thoracic aorta which measures up to 4.2 cm proximally and up to 3.9 cm just above the esophageal hiatus. This is similar in appearance to prior examinations. Intraluminal thrombus is identified. No dissection is seen. Pulmonary vasculature: The pulmonary trunk is normal in caliber. There are no filling defects identified in main, lobar, or segmental pulmonary branches to suggest pulmonary embolus. Heart: The heart is significantly enlarged and there is a trace pericardial effusion. The coronary arteries are densely calcified. Lungs and pleural spaces: Evaluation of the lung parenchyma is degraded by respiratory motion artifact. Emphysema is observed. The trachea and central airways appear clear. There is patchy airspace consolidation in the right upper and right lower lobes, most confluent at the right lung base. Minimal consolidative change is also seen at the left lung base. This is new from 07/29/2016 and typical appearance for pneumonia. Fat-containing Bochdalek hernias are present at both lung bases. There is a trace right pleural effusion. Mediastinum: There are scattered subcentimeter mediastinal lymph nodes. These are not pathologically enlarged by size criteria. Sherry: Clear. Axillae: There is no axillary lymphadenopathy. Upper abdomen: The visualized kidneys demonstrate cortical atrophy. Cysts are seen in the upper poles measuring up to 7 cm on the right. There is glandular atrophy of the imaged pancreas. Skeletal structures: The skeletal structures are osteopenic. Advanced degenerative change and hyperkyphosis is noted throughout the thoracic spine. No lytic or blastic bony lesions are seen. There is a severe compression deformity of T12 and a moderate compression deformity of L3. There are numerous healed bilateral rib fractures. Soft tissues: Again seen is a 1.6 cm irregular nodule in the right breast seen on image #161. IMPRESSION: 1. There is no evidence of pulmonary embolus in the main, lobar, or segmental pulmonary arteries. 2. Cardiomegaly and emphysema. 3. There is patchy airspace consolidation throughout the right lung, most confluent at the right lung base. Minimal patchy consolidative change is also seen in the left lung base. The appearance is typical for pneumonia/aspiration pneumonitis. Clinical correlation will be required and radiographic follow-up to resolution is recommended. 4. 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 5. Trace right pleural effusion. 6. Again seen is a 1.6 cm irregular nodule in the right breast. This is indeterminant. Follow-up with an outpatient mammogram ultrasound is again recommended. 7. Additional findings as above. Electronically signed by: Antoine Laird M.D. 08/09/2016 4:37 PM Dictated Date/Time: 08/09/2016 4:26 PM EKG Normal sinus rhythm Normal ECG When compared with ECG of 04-AUG-2016 08:56, Minimal criteria for Inferior infarct are no longer Present Confirmed by HAILEY RIVERA MD ([id number]) on 08/09/2016 5:10:20 PM Impression Assessment and Plan 81 yo female with HTN and extensive smoking Hx presents with sudden onset shortness of breath at rest. She was recently in the ER with pneumonia 5 days prior to admission and discharged home with Levaquin. Shortness of breath - initially doing better with treatment with Levaquin but sudden onset shortness of breath for 15 minutes today concerning for myocardial infarction (BNP normal, cardiomegaly on CT). Given increase in pneumonia on CXR and CT may be under treated pneumonia or continuous aspirations (denies any problems eating however). CTA - no PE. She has been SOBOE and was seen Jun by PCP who arranged stress echo which she has not yet had. Given she has recently come off paxil and has been having memories of when her as she is finding it hard to make short term memories this may have been an anxiety attack although she notes she was not overly stressed or having anxious thoughts at that time. - echocardiogram, serial troponin, ASA 325mg now, 81mg daily after (likely would benefit given atherosclerotic changes on CT and extensive small vessel disease). Lipid panel in am - pneumonia treatment below Pneumonia, possible aspiration given worsening imaging despite on Levaquin - Cefepime to cover for pseudomonas (failure of Levaquin O/P) and metronidazole to cover anaerobes. - incentive spirometry - Speech consult to assess for aspirations. Emphysema - possibly cause of her SOBOE for the last few months if not her heart. No wheezing currently. albuterol helped as outpatient. - seen on CT scan. No previous spirometry known. - Rx with duonebs QID to help recovery from pneumonia - Start Symbicort BID - O/P follow up to consider spirometry. Hypokalemia - may contribute towards respiratory muscle weakness. Not on diuretics and no diarrhea to explain drop. - Magnesium and repeat BMP after ER gave stat 40 meq - BMP in morning, replace as required Leg swelling - most likely immobility, venous insufficiency and malnutrition from recent pneumonia. PT eval and treat - Echo will check for heart failure. LFTs and renal function normal. Back pain - likely related to compression # seen on CT which is not acute - acetaminophen PRN - consider brace if needed tomorrow - avoid opiates due to risk of delirium Left leg numbness - swelling vs. CVA vs spinal pathology (compression # not acute) - Reassess tomorrow if getting better with reduced leg swelling consider MRI or just continuing ASA anyway. - compression stockings for leg swelling and VTE prophylaxis Osteoporosis - suggested from CT - Vit D level, replace if low - follow O/P ?Dexa, given progression of dementia risk of medication may outweigh any benefit Intermittent visual hallucinations - differential delirium with underlying dementia. Possible exacerbated by vision issues with cataracts and wet macular degeration - Follow up as outpatient, high risk of delirium while in hospital Short term memory loss - most likely vascular dementia given CT/MRI findings but increased depression off paxil likely exacerbating - consider donepezil as outpatient - TSH (normal in Apr 2016) - B12 - MRI May 2016 - There are age-related involutional changes noting moderate confluent subcortical and periventricular microangiopathic disease. Prominent perivascular spaces are noted in the basal ganglia. The cerebellar tonsils are normal in configuration. Depression - not acute but getting progressively worse over last 2-4 weeks, recently stopped paxil. Incidental breast nodule on CT - breast examination consistent with cystic structure but will need O/P US follow up - O/P US, follow up by PCP HTN - continue atenolol and monitor, orthostatics QAM VTE Prophylaxis - lovenox 40mg SQ daily - no SCD due to risk of falls Code - DNR as requested by patient Disposition - admit to telelmetry due to concern for HI at this time. May be stepped down tomorrow if troponin negative overnight. I agree with resident assessment and plan Agree with PE and ROS findings Pt admitted for sob Persistent PNA Will also r/o CHF due to lower ext edema and obtain ECHO Level of Care Telemetry Advanced Directives Existing Advance Directive: No Existing Living Will: No Existing Power of Print Finisher: No Resuscitation Status DO NOT RESUSCITATE VTE Prophylaxis VTE Risk Assessment Done? Y/N: Yes Risk Level: Moderate Given or contraindicated: Enoxaparin (Lovenox)SQ Additional Copies To RV. Contreras MD
[2016-08-09] MEDS ORDERED: MAGNESIUM HYDROXIDE SUSP 30 ML UDC PO PRN (18:30)
[2016-08-09] MEDS ORDERED: ALUMINUM/MAGNESIUM/SIMETH (MAALOX MAX) 30 ML UDC PO PRN (18:30)
[2016-08-09] MEDS ORDERED: NITROGLYCERIN 0.4 MG SL PER TAB CHARGE SL PRN (18:30)
[2016-08-09] MEDS ORDERED: POLYETHYLENE (MIRALAX) 17 GM PACK PO PRN (18:30)
[2016-08-09] MEDS ORDERED: ONDANSETRON INJ 2 MG/ML 2 ML VIAL IV PRN (18:30)
[2016-08-09] MEDS ORDERED: ALBUT/IPRATROP 3MG/0.5MG NEB 3 ML VIAL INH STA (19:26)
--- NOTE | 2016-08-09 19:26 | EMERGENCY ROOM VISIT NOTE ---
History Report prepared by Monetibgriffin: Urszula Nguyễn Under the Supervision of: Dr. Gigi Shirley D.O. First contact with patient: 14:38 Chief Complaint: SHORTNESS OF BREATH Stated Complaint: SHORTNESS OF BREATH Nursing Triage Summary: pts daughter called 911 as the patient has had increased SOB x2 days and today noticed pedal edema. Denies CP. Recent dx from [facility] with pneumonia on ABX. Pt admits to a moist productive cough of yellow scant phlegm. Prehospital had an end tidal CO2 of 25. Pt admits to being a previous smoker. On arrival, pt on O2, removed for baseline read which was 85% on room air and placed back on O2 NC 2 liters. History of Present Illness The patient is an 81 year old female who presents to the Emergency Room with complaints of worsening shortness of breath for the past 2 days. She is accompanied by her daughter and placed on 2 Liters nasal canula. Her daughter reports the patient was seen here in the ED 5 days ago for shortness of breath, and was diagnosed with a right mid to lower lobe pneumonia. She was placed on Levaquin and given an Albuterol inhaler, which have provided minimal relief. She also admits to a moist productive cough with yellow phlegm. The patient started complaining of numbness in her left foot and ankle last night, and states she can no longer walk because she can't feel the foot. She states the foot appears to be more swollen than normal as well and reports the swelling goes into her lower left leg. The patient denies any personal history of heart failure, asthma or COPD. She notes she is a former smoker, and quit in January 2016. The patient also denies any headache, change in vision, fevers, chest pain , nausea, vomiting, diarrhea, pain with urination, and melena. Source of History: patient, family (daughter) Onset: 2 days ACCOUNT CONTACT ASSOCIATE Position: chest Timing: worsening Modifying Factors (Relieving): other (Levaquin, Albuterol inhaler) Associated Symptoms: + cough, No chest pain, No diarrhea, No fevers, No headache, No melena, No nausea, No urinary symptoms, No vomiting Review of Systems See HPI for pertinent positives & negatives. A total of 10 systems reviewed and were otherwise negative. Past Medical & Surgical Medical Problems: (1) Acute renal failure (ARF) (2) Back pain (3) Dyspnea (4) Hypertension (5) Hypoxia (6) Memory loss (7) Numbness in left leg Family History Noncontributory secondary to age Social History Smoking Status: Former Smoker Alcohol Use: none Drug Use: none Marital Status: Housing Status: lives alone Occupation Status: retired Current/Historical Medications Scheduled Atenolol (Tenormin), 50 MG PO DAILY Levofloxacin (Levaquin), 1 TAB PO DAILY Multiple Vitamins W/ Minerals (Ocuvite), 1 TAB PO QAM Scheduled PRN Albuterol Hfa (Ventolin Hfa), 2 PUFFS INH Q4 PRN for cough/shortness of breath Allergies Coded Allergies: No Known Allergies (Unverified , 08/09/16) Physical Exam Vital Signs Date Time Temp Pulse Resp B/P Pulse Ox O2 Delivery O2 Flow Rate FiO2 08/09/16 18:32 77 16 180/90 92 Nasal Cannula 2.0 08/09/16 16:43 82 24 151/62 100 Nasal Cannula 2.0 08/09/16 15:16 72 16 161/102 98 Room Air 08/09/16 14:38 70 08/09/16 14:26 94 Nasal Cannula 2.0 08/09/16 14:25 85 Room Air 08/09/16 14:25 36.5 74 22 155/99 85 Room Air Physical Exam GENERAL: Patient is sitting up in bed, on nasal canula, alert, well appearing, well nourished, no distress, non-toxic EYE EXAM: normal conjunctiva, PERRL and EOM's intact OROPHARYNX: no exudate, no erythema, lips, buccal mucosa, and tongue normal and mucous membranes are moist NECK: supple, no nuchal rigidity, no adenopathy, non-tender LUNGS: Lung sounds are diminished in the left base. Normal chest wall mechanics HEART: no murmurs, S1 normal and S2 normal ABDOMEN: abdomen soft, non-tender, normo-active bowel sounds, no masses, no rebound or guarding. BACK: Back is symmetrical on inspection and there is no deformity, no midline tenderness, no CVA tenderness. SKIN: no rashes and no bruising UPPER EXTREMITIES: upper extremities are grossly normal. LOWER EXTREMITIES: Flexion and extension of the hip, knee, ankle and EHL are 5/ 5 bilaterally. Diminished sensation on the left lower leg, DP's are 2/4 bilaterally, mild pitting edema bilaterally. NEURO EXAM: Normal sensorium, cranial nerves II-XII grossly intact, normal speech, no gross weakness of arms, no gross weakness of legs. No drift. Finger to nose intact. Gross sensation intact. Medical Decision & Procedures ER Provider Diagnostic Interpretation: This X-Ray was reviewed and interpreted by myself and the radiologist. CHEST ONE VIEW PORTABLE IMPRESSION: 1. Increasing right lower lung opacity which could reflect pneumonia or atelectasis. 2. Minimal left basilar opacity which favors atelectasis. 3. Redemonstration of numerous subacute to chronic rib fractures. No pneumothorax. Electronically signed by: Randall Dahl M.D. 08/09/2016 3:04 PM Dictated Date/Time: 08/09/2016 3:[address] scans were reviewed and interpreted by the radiologist and reviewed by myself. HEAD CT NONCONTRAST Impression: No acute intracranial abnormality. Atrophy and microvascular ischemic changes. Electronically signed by: Grvoer Tomlinson M.D. 08/09/2016 3:20 PM Dictated Date/Time: 08/09/2016 3:[address] ANGIOGRAM OF THE CHEST IMPRESSION: 1. There is no evidence of pulmonary embolus in the main, lobar, or segmental pulmonary arteries. 2. Cardiomegaly and emphysema. 3. There is patchy airspace consolidation throughout the right lung, most confluent at the right lung base. Minimal patchy consolidative change is also seen in the left lung base. The appearance is typical for pneumonia/aspiration pneumonitis. Clinical correlation will be required and radiographic follow-up to resolution is recommended. 4. 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 5. Trace right pleural effusion. 6. Again seen is a 1.6 cm irregular nodule in the right breast. This is indeterminant. Follow-up with an outpatient mammogram ultrasound is again recommended. 7. Additional findings as above. Electronically signed by: Antoine Laird M.D. 08/09/2016 4:37 PM Dictated Date/Time: 08/09/2016 4:26 PM Laboratory Results 08/09/16 14:01 Red Blood Count 3.97, Mean Corpuscular Volume 90.2, Mean Corpuscular Hemoglobin 30.5, Mean Corpuscular Hemoglobin Concent 33.8, Mean Platelet Volume 9.1, Neutrophils (%) (Auto) 73.9, Lymphocytes (%) (Auto) 16.3, Monocytes (%) (Auto) 7.4, Eosinophils (%) (Auto) 1.1, Basophils (%) (Auto) 0.4, Neutrophils # (Auto) 9.85, Lymphocytes # (Auto) 2.18, Monocytes # (Auto) 0.99, Eosinophils # (Auto) 0.15, Basophils # (Auto) 0.06 08/09/16 14:01 Test 08/09/16 14:01 08/09/16 18:42 White Blood Count 13.35 K/uL (4.8-10.8) Red Blood Count 3.97 M/uL (4.2-5.4) Hemoglobin 12.1 g/dL (12.0-16.0) Hematocrit 35.8 % (37-47) Mean Corpuscular Volume 90.2 fL (80-100) Mean Corpuscular Hemoglobin 30.5 pg (25-34) Mean Corpuscular Hemoglobin Concent 33.8 g/dl (32-36) Platelet Count 463 K/uL (130-400) Mean Platelet Volume 9.1 fL (7.4-10.4) Neutrophils (%) (Auto) 73.9 % Lymphocytes (%) (Auto) 16.3 % Monocytes (%) (Auto) 7.4 % Eosinophils (%) (Auto) 1.1 % Basophils (%) (Auto) 0.4 % Neutrophils # (Auto) 9.85 K/uL (1.4-6.5) Lymphocytes # (Auto) 2.18 K/uL (1.2-3.4) Monocytes # (Auto) 0.99 K/uL (0.11-0.59) Eosinophils # (Auto) 0.15 K/uL (0-0.5) Basophils # (Auto) 0.06 K/uL (0-0.2) RDW Standard Deviation 46.2 fL (36.4-46.3) RDW Coefficient of Variation 13.9 % (11.5-14.5) Immature Granulocyte % (Auto) 0.9 % Immature Granulocyte # (Auto) 0.12 K/uL (0.00-0.02) Prothrombin Time 11.4 SECONDS (9.0-12.0) Prothromb Time International Ratio 1.1 (0.9-1.1) Activated Partial Thromboplast Time 30.6 SECONDS (21.0-31.0) Partial Thromboplastin Ratio 1.2 D-Dimer 4160 ug/L FEU (0-500) Anion Gap 10.0 mmol/L (3-11) Est Creatinine Clear Calc Drug Dose 45.2 ml/min Estimated GFR () 81.5 Estimated GFR (Non- 70.3 BUN/Creatinine Ratio 22.2 (10-20) Calcium Level 8.9 mg/dl (8.5-10.1) Total Bilirubin 0.2 mg/dl (0.2-1) Aspartate Amino Transf (AST/SGOT) 10 U/L (15-37) Alanine Aminotransferase (ALT/SGPT) 18 U/L (12-78) Alkaline Phosphatase 107 U/L (45-117) Total Creatine Kinase 37 U/L (26-192) Creatine Kinase MB 1.2 ng/ml (0.5-3.6) Creatine Kinase MB Ratio 3.2 (0-3.0) Pro-B-Type Natriuretic Peptide 1034 pg/ml (0-1800) Total Protein 7.1 gm/dl (6.4-8.2) Albumin 2.9 gm/dl (3.4-5.0) Globulin 4.2 gm/dl (2.5-4.0) Albumin/Globulin Ratio 0.7 (0.9-2) Laboratory results per my review. Medications Administered Medications (Trade) Dose Ordered Sig/[place] Route Start Time Stop Time Status Last Admin Dose Admin Potassium Chloride 40 meq 40 meq NOW STAT PO 08/09/16 15:37 08/09/16 15:40 DC 08/09/16 15:47 40 MEQ Cefepime HCl/ Dextrose (Maxipime IV/D5 100ml) 111.3 ml @ 200 mls/hr NOW STAT IV 08/09/16 16:58 08/09/16 17:31 DC 08/09/16 17:22 200 MLS/HR Morphine Sulfate (MoRPHine SULFATE INJ) 4 mg NOW STAT IV 08/09/16 17:14 08/09/16 17:15 DC 08/09/16 17:23 4 MG ED Course ED COURSE: Vital signs were reviewed and showed the patient is hypoxic. The patients medical record was reviewed The above diagnostic studies were performed and reviewed. ED treatments and interventions as stated above. 1439: The patient was evaluated in room A10. A complete history and physical examination was performed. 1537: Potassium Chloride 40 meq PO. 1658: Cefepime HCl 1000 mg/Dextrose 111.3 ml @ 200 mls/hr IV. 1701: I discussed the patients case with Dr. Shell [facility] Hospitalist. The patient will be further evaluated. 1705: Upon reevaluation, the patient is resting comfortably. I discussed my findings with the patient and she understands and agrees with the treatment plan. 1714: Morphine Sulfate 4 mg IV. Based on the patients age, coexisting illnesses, exam and lab findings the decision to treat as an inpatient was made. The patient remained stable while under my care. The patient will be evaluated for further management. Medical Decision Differential diagnoses includes but is not limited to pneumonia, bronchitis, COPD/Asthma exacerbation, pneumothorax, pulmonary embolism, congestive heart failure, acute coronary syndrome Patient is an 81-year-old female who presents the ER for shortness of breath and was found to be hypoxic with pulse ox an 85%. She was recently treatment for pneumonia on Levaquin. She has of the shortness of breath has not worsened. On exam she does have decreased breath sounds on left side. She is complains of paresthesias in the left lower extremity. She is completely otherwise neurologically intact. CT head was negative. No signs of stroke. Labs show a mild leukocytosis of 13,000. Potassium was slightly low at 2.9. D- dimer was elevated 40,000. CT PE was performed and showed bilateral basilar infiltrates along with a right breast nodule. Patient family were updated at bedside in regards these findings. She is given a dose of antibiotics and admitted to internal medicine for hypoxia likely secondary to pneumonia along with a small right breast mass. Consults Time Called: 165 Consulting Physician: Dr. Shell [facility] Hospitalist Returned Call: [phone] I discussed the patients case with Dr. Shell [facility] Hospitalist. The patient will be further evaluated. Impression Primary Impression: Bilateral pneumonia Additional Impressions: Breast nodule Hypokalemia Scribe Attestation The scribe's documentation has been prepared under my direction and personally reviewed by me in its entirety. I confirm that the note above accurately reflects all work, treatment, procedures, and medical decision making performed by me. Departure Information Dispostion Being Evaluated By Hospitalist Referrals RV. Contreras MD (PCP) Patient Instructions My [facility] Problem Qualifiers Primary Impression: Bilateral pneumonia Pneumonia type: due to unspecified organism Lung location: lower lobe of lung Qualified Codes: J18.9 - Pneumonia, unspecified organism
[2016-08-09] MEDS ORDERED: ASPIRIN 324 MG CHEW PO STA (19:28)
[2016-08-09 20:09] VITALS: BP 170/81; PULSE 73; TEMP 36.4; O2SAT 98; Ht 160 cm; Wt 54.1 kg
[2016-08-09 20:45] LABS: POTASSIUM 3.2 mmol/L (3.5-5.1)
[2016-08-09] MEDS ORDERED: ALBUT/IPRATROP 3MG/0.5MG NEB 3 ML VIAL INH PRN (20:45)
[2016-08-09 20:47] LABS: MAGNESIUM 1.9 mg/dl (1.8-2.4)
[2016-08-09] MEDS: ENOXAPARIN 40 MG/0.4 ML SYR SC SCH (21:22)
[2016-08-09] MEDS: ACETAMINOPHEN 325 MG TAB PO PRN (21:22)
[2016-08-09] MEDS ORDERED: PNEUMOCOCCAL ADMINISTRATION CHARGE ONE (22:00)
[2016-08-09] MEDS ORDERED: PNEUMOCOCCAL POLYSACCHARIDES 25 MCG/0.5 ML VIAL/SYR IM. ONE (22:00)
[2016-08-09] MEDS: METRONIDAZOLE / NSS 500 MG in PREMIXED NSS 100 ML IV SCH (22:13)
[2016-08-09 23:10] LABS: MANUAL MICROSCOPIC REQUIRED? NO; REVIEW REQ? NO; URINE APPEARANCE CLEAR (CLEAR); URINE BILIRUBIN NEG (NEG); URINE COLOR YELLOW; URINE EPITHELIAL CELL AUTO >30 /lpf (0-5); URINE NITRITE NEG (NEG); URINE SPECIFIC GRAVITY > 1.045 (1.000-1.030); UROBILINOGEN NEG (NEG); ZZUR CULT IF INDIC CLEAN CATCH NO
[2016-08-10] VITALS (16 sets, daily range): BP systolic 115–162; BP diastolic 69–83; PULSE 55–80; TEMP 36.3–36.9; O2SAT 92–100
[2016-08-10] MEDS ORDERED: POTASSIUM CHLR 20 MEQ / WTR 20 MEQ in PREMIXED WATER 100 ML IV SCH
[2016-08-10] MEDS: ALBUT/IPRATROP 3MG/0.5MG NEB 3 ML VIAL INH SCH ×5 (00:40→20:00)
[2016-08-10] MEDS: POTASSIUM CHLR 10MEQ / WTR IV SCH ×4 (00:41→03:59)
[2016-08-10] MEDS: METRONIDAZOLE / NSS 500 MG in PREMIXED NSS 100 ML IV SCH (05:30)
[2016-08-10 06:30] LABS: BASO % 0.5 %; BASO ABS # 0.05 K/uL (0-0.2); COMPLETE YES; EOS % 2.7 %; HEMATOCRIT 33.5 % (37-47); IG% 0.8 %; LYMPH % 27.6 %; LYMPH ABS # 2.91 K/uL (1.2-3.4); MEAN CORPUSCULAR HEMOGLOBIN 30.8 pg (25-34); MEAN CORPUSCULAR HGB CONC 33.4 g/dl (32-36); MEAN PLATELET VOLUME 9.2 fL (7.4-10.4); MONO % 8.8 %; NEUT % 59.6 %; PLATELET COUNT 377 K/uL (130-400); RED BLOOD COUNT 3.64 M/uL (4.2-5.4); WHITE BLOOD COUNT 10.55 K/uL (4.8-10.8)
[2016-08-10 07:38] LABS: ALB/GLOB RATIO 0.7 (0.9-2); ALKALINE PHOSPHATASE 85 U/L (45-117); ALT/SGPT 14 U/L (12-78); AST/SGOT 6 U/L (15-37); BLOOD UREA NITROGEN 12 mg/dl (7-18); BUN/CREATININE RATIO 20.8 (10-20); CALCIUM 8.3 mg/dl (8.5-10.1); CARBON DIOXIDE 25 mmol/L (21-32); CHLORIDE 107 mmol/L (98-107); CHOLESTEROL 128 mg/dl (0-200); CHOLESTEROL/HDL RATIO 2.8; CREATININE 0.59 mg/dl (0.60-1.20); GLUCOSE 90 mg/dl (70-99); HDL CHOLESTEROL 45 mg/dl; LDL CHOLESTEROL CALCULATED 67 mg/dl; MAGNESIUM 1.9 mg/dl (1.8-2.4); SODIUM 142 mmol/L (136-145); TRIGLYCERIDES 81 mg/dl (0-150); VERY LOW DENSITY LIPOPROT CALC 16 mg/dl
[2016-08-10] MEDS: CHOLECALCIFEROL 1000 INTER.UNIT TAB PO SCH (08:46)
[2016-08-10] MEDS: ASPIRIN 81 MG ECTAB PO SCH (08:48)
[2016-08-10] MEDS: CEROVITE ADV FORMULA TAB PO SCH (08:48)
--- NOTE | 2016-08-10 13:50 | ECHOCARDIOGRAM REPORT ---
*NOTICE TO RECEIVING REPUBLICAN AGENCY This information is strictly Confidential and protected under [place] law. [place] law prohibits you from making any further disclosure of this information unless further disclosure is expressly permitted by the written consent of the person to whom it pertains or is authorized by law. A general authorization for the release of medical or other information is not sufficient for this purpose. Hospital accepts no responsibility if the information is made available to any other person, INCLUDING THE PATIENT. Interpretation Summary * Name: LORRAINE MCMULLEN I Study Date: 08/10/2016 08:44 AM BP: 135/83 mmHg * Patient Location: C.2T\S\S238\S\1 HR: 65 * : 1935 (M/d/y) Gender: Female Height: 62 in * Age: 81 yrs Ethnicity: [place] Weight: 118 lb * Ordering Physician: Quinten Merritt * Referring Physician: Self, Referred * Performed By: Cb George RDCS * * Reason For Study: AMI * BSA: 1.5 m2 * Normal biventricular systolic function. * Mild concentric left ventricular hypertrophy. * Left ventricular diastolic dysfunction. * Mild mitral and tricuspid regurgitation. * Mildly elevated right ventricular systolic pressure. * -- Conclusions -- * Aortic valve sclerosis mild, without significant aortic valvular stenosis. Procedure Details * A complete two-dimensional transthoracic echocardiogram was performed (2D, M-mode, Doppler and color flow Doppler). * The study was technically adequate. Left Ventricle * The left ventricle is normal in size. * There is mild concentric left ventricular hypertrophy. * A full diastolic examination was done with clinical findings of Class I diastolic dysfunction. * Left ventricular systolic function is normal. * Ejection Fraction = 65-70%. * The left ventricular wall motion is normal. Right Ventricle * The right ventricle is normal in size and function. * The right ventricular systolic function is normal as assessed by tricuspid annular plane systolic excursion (TAPSE) (normal >1.5 cm). Atria * The left atrial size is normal. * Right atrial size is normal. * No ASD detected; PFO is not assessed. Mitral Valve * The mitral valve is normal. * There is no mitral valve stenosis. * There is mild mitral regurgitation. Tricuspid Valve * The tricuspid valve is normal. * There is no tricuspid stenosis. * There is mild tricuspid regurgitation. * Estimated right ventricular systolic pressure 41 mm Hg. Aortic Valve * The aortic valve is trileaflet. * The aortic valve opens well. * Aortic valve sclerosis mild, without significant aortic valvular stenosis. * Aortic stenosis is absent. * No aortic regurgitation is present. Pulmonic Valve * The pulmonic valve is not well visualized. * There is no significant pulmonary regurgitation. Great Vessels * The aortic root is normal size. Pericardium/Pleural * There is no pericardial effusion. Great Vessels * Normal inferior vena cava diameter and respiratory variation suggests normal central venous pressure. MMode 2D Measurements and Calculations IVSd 1.2 cm IVSs 1.4 cm LVIDd 4.3 cm LVIDs 2.6 cm LVPWd 1.2 cm LVPWs 1.4 cm IVS/LVPW 1.0 FS 40.6 % EDV(Teich) 84.4 ml ESV(Teich) 24.0 ml EF(Teich) 71.6 % EDV(cubed) 81.2 ml ESV(cubed) 17.0 ml EF(cubed) 79.0 % % IVS thick 11.2 % % LVPW thick 17.7 % LV mass(C)d 184.8 grams LV mass(C)dI 121.0 grams/m\S\2 LV mass(C)s 110.1 grams LV mass(C)sI 72.1 grams/m\S\2 SV(Teich) 60.5 ml SI(Teich) 39.6 ml/m\S\2 SV(cubed) 64.2 ml SI(cubed) 42.0 ml/m\S\2 EPSS 0.56 cm Ao root diam 3.5 cm Ao root area 9.5 cm\S\2 ACS 1.9 cm LA dimension 3.7 cm asc Aorta Diam 3.1 cm LA/Ao 1.1 LVOT diam 1.9 cm LVOT area 2.9 cm\S\2 LVAd ap4 18.0 cm\S\2 LVLd ap4 6.9 cm EDV(MOD-sp4) 37.7 ml LVAs ap4 8.8 cm\S\2 LVLs ap4 5.7 cm ESV(MOD-sp4) 11.3 ml EF(MOD-sp4) 70.0 % LVAd ap2 17.0 cm\S\2 LVLd ap2 6.6 cm EDV(MOD-sp2) 35.5 ml LVAs ap2 8.2 cm\S\2 LVLs ap2 5.0 cm ESV(MOD-sp2) 11.5 ml EF(MOD-sp2) 67.6 % SV(MOD-sp4) 26.4 ml SI(MOD-sp4) 17.3 ml/m\S\2 SV(MOD-sp2) 24.0 ml SI(MOD-sp2) 15.7 ml/m\S\2 Doppler Measurements and Calculations MV E max wei 92.2 cm/sec MV A max wei 118.0 cm/sec MV E/A 0.78 MV dec time 0.28 sec Ao V2 max 190.7 cm/sec Ao max PG 14.6 mmHg Ao max PG (full) 5.0 mmHg LAVERNE(V,A) 2.3 cm\S\2 LAVERNE(V,D) 2.3 cm\S\2 LV V1 max PG 9.5 mmHg LV V1 max 154.2 cm/sec PA V2 max 90.0 cm/sec PA max PG 3.2 mmHg TR max wei 301.3 cm/sec
[2016-08-10] MEDS ORDERED: CEFEPIME IV 1,000 MG in DEXTROSE 5% 100ML 100 ML IV SCH (16:00)
--- NOTE | 2016-08-10 16:04 | Progress Note ---
Subjective Date of Service: Aug 10, 2016. Subjective Pt evaluation today including: conversation w/ patient, conversation w/ family , physical exam, chart review, lab review, review of studies, review of inpatient medication list feeling better - breathing is a good deal better. no new sob. dtr does note that BORREGO has long preceded pneumonia - that when she was in the office she noted BORREGO - and pulse ox at rest was fine, but with ambulation she would desaturate - had ordered stress echo but she was scheduled for this coming friday. did smoke for ~60yrs, just quit when she moved here ~7 months ago. no f/c/s. acutely she feels much better than she did. left leg swelling about the same hallucinations - initially thought to be due to tramadol - this was stopped, but hallucinations continued. she did not tell anyone about the hallucinations continuing until very recently. almost always people - gruff looking men on the patio, a girl in the kitchen, floating heads. she notes they're very vivid but usually can distinguish hallucinations from reality. once she did call the police for the men on the patio though. does have a little memory loss but really only for things like remembering if she took her meds, or small details. otherwise she and dtr note that she is generally very lucid, logical. pt notes that she is depressed - and thinks that has been getting worse. wanted to stop paxil and did, but thinks that things have probably gotten worse since. misses - who is now . doesn't really feel like she has a purpose. sleep problems, loss of interest, needless guilty feelings, poor energy, poor concentration, appetite changes. no SI. Problem List Medical Problems: (1) Acute kidney injury Status: Acute (2) Anxiety Status: Acute (3) Bilateral pneumonia Status: Acute (4) Breast nodule Status: Acute (5) Contusion of left chest wall Status: Acute (6) Fall Status: Acute (7) Hallucinations Status: Acute (8) Hypokalemia Status: Acute (9) Hypotension Status: Acute (10) Leukocytosis Status: Acute (11) Pneumonia Status: Acute (12) Visual hallucination Status: Acute Review of Systems Constitutional: No chills, No fever, No sweats Respiratory: + dyspnea on exertion, No shortness of breath Psychiatric: + depression symptoms see above, ROS otherwise negative except for as above Objective Vital Signs Date Time Temp Pulse Resp B/P Pulse Ox O2 Delivery O2 Flow Rate FiO2 08/10/16 15:37 68 16 93 Nasal Cannula 1.0 08/10/16 15:16 36.5 67 18 115/69 96 Nasal Cannula 2.0 08/10/16 14:26 100 Nasal Cannula 2.0 08/10/16 11:42 36.9 62 16 153/77 100 Nasal Cannula 2.0 08/10/16 11:36 55 16 96 Nasal Cannula 2.0 08/10/16 08:21 76 16 94 Nasal Cannula 2.0 08/10/16 08:00 95 Nasal Cannula 2.0 08/10/16 07:30 36.5 68 24 162/80 95 Nasal Cannula 2.0 08/10/16 04:12 36.6 69 18 135/83 98 Nasal Cannula 08/10/16 04:00 Nasal Cannula 2.0 08/10/16 00:05 36.7 63 18 132/80 99 Nasal Cannula 08/10/16 00:00 Nasal Cannula 2.0 08/09/16 20:09 36.4 73 18 170/81 98 Nasal Cannula 2.0 08/09/16 19:49 76 18 147/78 97 08/09/16 18:32 77 16 180/90 92 Nasal Cannula 2.0 08/09/16 16:43 82 24 151/62 100 Nasal Cannula 2.0 Physical Exam General Appearance: no apparent distress Eyes: EOMI ENT: hearing grossly normal Neck: trachea midline Respiratory/Chest: no respiratory distress, no accessory muscle use, + decreased breath sounds (but surprisingly no r/r/w good effort) Cardiovascular: regular rate, rhythm Extremities: normal range of motion, no calf tenderness, + pedal edema (L ~1+ no erythema no cords no calf tenderness) Neurologic/Psychiatric: outsole beveler II-XII nml as tested, no motor/sensory deficits, alert, normal mood/affect, oriented x 3 Skin: normal color, warm/dry Laboratory Results Last 24 Hours Test 08/09/16 19:23 08/09/16 22:30 08/10/16 00:58 08/10/16 05:41 Troponin I < 0.015 ng/ml < 0.015 ng/ml < 0.015 ng/ml Vitamin B12 Level 783 pg/mL 25-Hydroxy Vitamin D Total 15.8 ng/ml Urine Color YELLOW Urine Appearance CLEAR Urine pH 5.0 Urine Specific [place] > 1.045 Urine Protein NEG Urine Glucose (UA) NEG Urine Ketones NEG Urine Occult Blood NEG Urine Nitrite NEG Urine Bilirubin NEG Urine Urobilinogen NEG Urine Leukocyte Esterase NEG Urine WBC (Auto) 1-5 /hpf Urine RBC (Auto) 0-4 /hpf Urine Hyaline Casts (Auto) 1-5 /lpf Urine Epithelial Cells (Auto) >30 /lpf Urine Bacteria (Auto) NEG White Blood Count 10.55 K/uL Red Blood Count 3.64 M/uL Hemoglobin 11.2 g/dL Hematocrit 33.5 % Mean Corpuscular Volume 92.0 fL Mean Corpuscular Hemoglobin 30.8 pg Mean Corpuscular Hemoglobin Concent 33.4 g/dl Platelet Count 377 K/uL Mean Platelet Volume 9.2 fL Neutrophils (%) (Auto) 59.6 % Lymphocytes (%) (Auto) 27.6 % Monocytes (%) (Auto) 8.8 % Eosinophils (%) (Auto) 2.7 % Basophils (%) (Auto) 0.5 % Neutrophils # (Auto) 6.30 K/uL Lymphocytes # (Auto) 2.91 K/uL Monocytes # (Auto) 0.93 K/uL Eosinophils # (Auto) 0.28 K/uL Basophils # (Auto) 0.05 K/uL RDW Standard Deviation 47.4 fL RDW Coefficient of Variation 14.2 % Immature Granulocyte % (Auto) 0.8 % Immature Granulocyte # (Auto) 0.08 K/uL Sodium Level 142 mmol/L Potassium Level 4.0 mmol/L Chloride Level 107 mmol/L Carbon Dioxide Level 25 mmol/L Anion Gap 10.0 mmol/L Blood Urea Nitrogen 12 mg/dl Creatinine 0.59 mg/dl Est Creatinine Clear Calc Drug Dose 59.7 ml/min Estimated GFR () 98.2 Estimated GFR (Non- 84.8 BUN/Creatinine Ratio 20.8 Random Glucose 90 mg/dl Calcium Level 8.3 mg/dl Magnesium Level 1.9 mg/dl Total Bilirubin 0.2 mg/dl Aspartate Amino Transf (AST/SGOT) 6 U/L Alanine Aminotransferase (ALT/SGPT) 14 U/L Alkaline Phosphatase 85 U/L Total Protein 6.0 gm/dl Albumin 2.4 gm/dl Globulin 3.6 gm/dl Albumin/Globulin Ratio 0.7 Triglycerides Level 81 mg/dl Cholesterol Level 128 mg/dl HDL Cholesterol 45 mg/dl LDL Cholesterol, Calculated 67 mg/dl VLDL Cholesterol, Calculated 16 mg/dl Cholesterol/HDL Ratio 2.8 Assessment and Plan CAP w hypoxic respiratory failure -improving -MRSA neg -speech eval neg (dc flagyl) -continue cefepime for now (had been on levaquin but worsened) -no sepsis now - may have been vaguely SIRS positive at time of ER presentation given white count of >12, RR > 20; but clearly no longer septic if she ever was BORREGO -acutely relates to pneumonia -chronically more than likely COPD related. 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 will want her to see neurology to r/o any "off the beaten path" dementia syndromes that could come with hallucinations - but nothing seems likely. would also have her see psych to confirm depression w psychotic features, and to assist in treatment. pt/dtr both amenable to this all being done as outpt - just wanted to have a ddx and a direction to go. venous insufficiency -leg swelling almost certainly venous insufficiency related. highly doubt DVT but since asymmetric, obligated to check doppler depression -see above; also encouraged lifestyle habits that can help w depression moderate pulmonary HTN -based on R sided echo pressures -O2 HS even when/if she no longer needs 24/7 O2 DVT proph -lovenox chronic diastolic CHF -compensated -doubt this contributes to her BORREGO much if at all, since lack of pulmonary edema would therefore also mean no real reason to explain desaturation osteoporosis -supplement vitamin D -start bisphosphonate as outpt stable for med surg ~40mins face to face in addition to time on chart review, documenting, ordering , etc
[2016-08-10] MEDS: ENOXAPARIN 40 MG/0.4 ML SYR SC SCH (19:56)
[2016-08-10] MEDS: ACETAMINOPHEN 325 MG TAB PO PRN (19:56)
[2016-08-11] MEDS: ACETAMINOPHEN 325 MG TAB PO PRN (06:43)
[2016-08-11 06:48] VITALS: BP 157/81; PULSE 64; O2SAT 97
[2016-08-11 06:51] VITALS: BP 123/63; PULSE 72; TEMP 36.5; O2SAT 94
[2016-08-11 07:30] VITALS: PULSE 88; O2SAT 93
[2016-08-11] MEDS: ALBUT/IPRATROP 3MG/0.5MG NEB 3 ML VIAL INH SCH (07:30)
--- NOTE | 2016-08-11 08:41 | Progress Note ---
Subjective Date of Service: Aug 11, 2016. Problem List Medical Problems: (1) Acute kidney injury Status: Acute (2) Anxiety Status: Acute (3) Bilateral pneumonia Status: Acute (4) Breast nodule Status: Acute (5) Contusion of left chest wall Status: Acute (6) Fall Status: Acute (7) Hallucinations Status: Acute (8) Hypokalemia Status: Acute (9) Hypotension Status: Acute (10) Leukocytosis Status: Acute (11) Pneumonia Status: Acute (12) Visual hallucination Status: Acute Objective Vital Signs Date Time Temp Pulse Resp B/P Pulse Ox O2 Delivery O2 Flow Rate FiO2 08/11/16 07:30 88 16 93 Room Air 08/11/16 06:51 36.5 72 16 123/63 94 08/11/16 06:48 64 18 157/81 97 Nasal Cannula 2.0 08/11/16 00:00 Room Air 08/10/16 23:30 36.3 80 18 148/79 95 Room Air 08/10/16 21:45 94 Nasal Cannula 1.0 08/10/16 20:32 78 16 93 Room Air 08/10/16 20:00 94 Room Air 08/10/16 18:19 36.7 79 18 147/70 92 Room Air 08/10/16 16:00 100 Nasal Cannula 2.0 08/10/16 15:37 68 16 93 Nasal Cannula 1.0 08/10/16 15:16 36.5 67 18 115/69 96 Nasal Cannula 2.0 08/10/16 14:26 100 Nasal Cannula 2.0 08/10/16 11:42 36.9 62 16 153/77 100 Nasal Cannula 2.0 08/10/16 11:36 55 16 96 Nasal Cannula 2.0 Assessment and Plan CAP w hypoxic respiratory failure -improving -MRSA neg -speech eval neg (dc flagyl) -continue cefepime for now (had been on levaquin but worsened) -no sepsis now - may have been vaguely SIRS positive at time of ER presentation given white count of >12, RR > 20; but clearly no longer septic if she ever was BORREGO -acutely relates to pneumonia -chronically more than likely COPD related. 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 will want her to see neurology to r/o any "off the beaten path" dementia syndromes that could come with hallucinations - but nothing seems likely. would also have her see psych to confirm depression w psychotic features, and to assist in treatment. pt/dtr both amenable to this all being done as outpt - just wanted to have a ddx and a direction to go. venous insufficiency -leg swelling almost certainly venous insufficiency related. highly doubt DVT but since asymmetric, obligated to check doppler depression -see above; also encouraged lifestyle habits that can help w depression moderate pulmonary HTN -based on R sided echo pressures -O2 HS even when/if she no longer needs 24/7 O2 DVT proph -lovenox chronic diastolic CHF -compensated -doubt this contributes to her BORREGO much if at all, since lack of pulmonary edema would therefore also mean no real reason to explain desaturation osteoporosis -supplement vitamin D -start bisphosphonate as outpt small aortic aneurysm -ongoing outpatient follow up
[2016-08-11] MEDS: ASPIRIN 81 MG ECTAB PO SCH (08:46)
[2016-08-11] MEDS: CHOLECALCIFEROL 1000 INTER.UNIT TAB PO SCH (08:46)
[2016-08-11] MEDS: CEROVITE ADV FORMULA TAB PO SCH (08:47)
[2016-08-11] MEDS ORDERED: ERGOCALCIFEROL 50,000 INTER.UNIT CAP PO SCH (09:00)
[2016-08-11] MEDS ORDERED: LIDODERM (LIDOCAINE) PATCH 5% TD ONE (09:04)
--- NOTE | 2016-08-11 10:13 | DIAGNOSTIC IMAGING REPORT ---
ULTRASOUND BILATERAL LOWER EXTREMITY VENOUS CLINICAL HISTORY: Asymmetric lower extremity edema. COMPARISON STUDY: No priors. TECHNIQUE: Real-time, grayscale, and color Doppler sonography of the deep veins of the right and left lower extremity was performed from the inguinal crease to the calf. Compression and augmentation were utilized. FINDINGS: There is no sonographic evidence of deep venous thrombosis identified in the right or left lower extremity. The common femoral, superficial femoral, and popliteal veins are patent and normally compressible bilaterally. The greater saphenous vein and the profunda femoris vein at the junction with the common femoral vein are clear in both legs. The visualized calf veins are patent bilaterally. A minimally complex right-sided popliteal cyst measures 3.3 x 1.0 x 2.0 cm. IMPRESSION: 1. There is no sonographic evidence of deep venous thrombosis identified in the right or left lower extremity. 2. Small right popliteal cyst. Electronically signed by: Antoine Laird M.D. 08/11/2016 10:12 AM Dictated Date/Time: 08/11/2016 10:11 AM
[2016-08-11] MEDS ORDERED: CEFD1CAP14 PO (11:59)
[2016-08-11] MEDS ORDERED: VTMD PO (11:59)
[2016-08-11] MEDS ORDERED: VTMD1000 PO (11:59)
[2016-08-11] MEDS ORDERED: IPRATROPIUM BROMIDE/ALBUTEROL respimat INH INH ONE (12:08)
--- NOTE | 2016-08-11 12:17 | Discharge Instructions ---
Discharge Instructions Admission Reason for Admission: Back Pain, Dyspnea, Hypoxia, Memory Loss Discharge Discharge Diagnosis / Problem: pneumonia, see below otherwise Discharge Goals Goal(s): Diagnostic testing, Therapeutic intervention Activity Recommendations Activity Limitations: resume your previous activity . Instructions / Follow-Up Instructions / Follow-Up pneumonia -this appears to have been the main thing that was "acutely getting you down." you've improved nicely with the switch from levaquin to cefepime. it definitely appears that you're safe to go home, and should slowly get better on the antibiotics. as we discussed, there's not an oral version of cefepime, so the closest thing (cefdinir - which we'll be using) is a slight "step down" -- almost certainly you're still going to be getting better, but if it weren't getting the job done, you'd more than likely know by having worsening symptoms or new fevers sometime in the next 48hrs. -have your PCP get a follow up chest Xray in about a month to make sure things have totally cleared shortness of breath with exertion -obviously some of the shortness of breath "in the here and now" relates to the pneumonia, but the more chronic shortness of breath with activity is more than likely related to your lungs. while follow up with the stress echo certainly is not a bad thing, overall your echo just looked like your heart muscle was a little "stiff" (technical term diastolic dysfunction) - but without evidence of fluid backing up from your heart into your lungs, this wouldn't really make your oxygen saturation drop when you walk. it might be worthwhile to have your PCP change your atenolol over to metoprolol, but we'll defer to the office for this, since the transition would also require some follow up (working on the philosophy that "it's better to be able to finish what you start" - especially since a switch like that is by no means emergent). -with your prior smoking history, i do suspect a lot of the shortness of breath is from COPD (smokers lung) - and this is something that likely can be managed with more aggressive use of maintenance inhalers (like spiriva, or if that alone isn't enough, adding something like advair on top of spiriva). before moving in that direction, it's important to get pulmonary function tests (think : lung volume measurements) to truly see how good/bad/indifferent your airflow is. 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 it 's less likely that we could be looking at an atypical "organic brain syndrome" (think: rare, qjj-bnq-alimro-path types of dementia syndromes) but this seems less likely given that your memory loss symptoms seem pretty minor and benign ( and could actually even be explained by the distractibility-related forgetfulness that a lot of depressed people have.) because these are all diagnoses that are a little more rare and nuanced, we'd definitely recommend having a neurology evaluation (to evaluate for, and likely rule out, the organic brain syndrome diagnoses) and also a psychiatry evaluation (to evaluate for and confirm/refute depression with psychosis, as well as help guide what's best to treat). from there, they can work with your PCP in the actual management, but it would be helpful for specialist involvement in truly " pinning down" what we're working with. venous insufficiency -your leg swelling is almost certainly related to venous insufficiency - no specific management is required when the swelling is mild, but when it's annoying or gets worse - gentle compression can then be helpful (before moving to the thick, difficult prescription stockings, it would be worthwhile to try the ykjn-vac-nlyzpri ones, or even the distance-runner compression socks) depression -see above (under hallucinations) - but regardless of whether the hallucinations do tie back to the depression, this is something that needs help! ! as we discussed, the single biggest thing you can work on is the loneliness. whether you get more involved in activities where you live, or volunteer for child-care situations, or anything else similar, the more you get out and interact with people, i would expect the depression symptoms to improve some. i do expect that medication management will also be playing a role, but since we 'll be getting you in with psychiatry, and since most depression-related meds take weeks to truly "take effect," we'll hold off on prescriptions for now to allow psychiatry to guide treatment moderate pulmonary hypertension -almost certainly related to the smokers lung and the "stiff" heart, the blood pressure in your lungs is a bit high. treating smokers lung will help this (as it will reduce the degree of air trapping that makes your chest a higher- pressure area), but also, typically people with high blood pressure in their lungs do better in the long-term with oxygen at bedtime (it almost acts as a medicine to reduce the pressure more than anything else, and works better than medications for high blood pressure in the lungs). coming out of the hospital, it's very difficult (if not impossible) to get someone oxygen unless their pulse ox numbers are dropping (which yours are not) - so we'll have to lean on your PCP to help get this set up - expect it to take a while, unfortunately, as insurance companies don't always look at oxygen as anything other than "to treat a low pulse ox" small aortic aneurysm -on the CT of your chest, there was a small bulge in the aorta. contrary to "word on the street" definitions, an aneurysm is not a ruptured blood vessel, or a torn blood vessel (those are the disasters that can happen with aneurysms - which are not happening with you) - but an aneurysm is simply the presence of the bulge in the blood vessel wall. yours is only minorly bulging, but will require occasional follow up imaging to make sure that it's not slowly expanding. if it ever were to be getting bigger, then they would talk to you about a thoracic or vascular surgeon to stabilize or repair, but this is actually not that likely to be needed given how small the bulge actually is. low vitamin D -your vitamin D levels were low at 15.8 ("normal" is up for debate, but at least 30-40) -this is really common in this part of the [place]; we'll just need to supplement - it'll be vitamin D3 2000 IU daily indefinitely, and vitamin D2 50,000 once a week for probably about 12 weeks, then your PCP will repeat D levels to see how aggressive supplementing needs to be in the future Current Hospital Diet Patient's current hospital diet: AHA Diet (Heart Healthy) Discharge Diet Recommended Diet: AHA Diet (Heart Healthy) Pending Studies Studies pending at discharge: no Laboratory Results Lipid Panel Test 08/10/16 05:41 Range/Units Triglycerides Level 81 0-150 mg/dl Cholesterol Level 128 0-200 mg/dl HDL Cholesterol 45 mg/dl Cholesterol/HDL Ratio 2.8 LDL Cholesterol, Calculated 67 mg/dl Medical Emergencies . Who to Call and When: Medical Emergencies: If at any time you feel your situation is an emergency, please call 911 immediately. . Non-Emergent Contact Non-Emergency issues call your: Primary Care Provider . . "Provider Documentation" section prepared by Gigi Dorsey. VTE Core Measure Inpt VTE Proph given/why not?: Enoxaparin (Lovenox)SQ
[2016-08-11] MEDS ORDERED: IPRATROPIUM BROMIDE/ALBUTEROL respimat INH INH SCH (13:00)
[2016-08-11 13:13] VITALS: BP 123/63; PULSE 88; TEMP 36.5; O2SAT 93
--- NOTE | 2016-08-11 14:59 | Discharge Summary ---
Discharge Summary Admission Date: Aug 09, 2016 at 18:35 Discharge Date: Aug 11, 2016 Discharge Disposition: Home Principal Diagnosis: CAP Problems/Secondary Diagnoses: multiple - see below Procedures: echo: Interpretation Summary Name: LORRAINE MCMULLEN I Study Date: 08/10/2016 08:44 AM BP: 135/83 mmHg Patient Location: [facility]\\S\\[facility]\\S\\1 HR: 65 : 1935 (M/d/yyyy) Gender: Female Height: 62 in Age: 81 yrs Ethnicity: [place] Weight: 118 lb Ordering Physician: Quinten Merritt Referring Physician: Self, Referred Performed By: Cb George RDCS Reason For Study: AMI BSA: 1.5 m2 Normal biventricular systolic function. Mild concentric left ventricular hypertrophy. Left ventricular diastolic dysfunction. Mild mitral and tricuspid regurgitation. Mildly elevated right ventricular systolic pressure. -- Conclusions -- Aortic valve sclerosis mild, without significant aortic valvular stenosis. Procedure Details A complete two-dimensional transthoracic echocardiogram was performed (2D, M- mode, Doppler and color flow Doppler). The study was technically adequate. Left Ventricle The left ventricle is normal in size. There is mild concentric left ventricular hypertrophy. A full diastolic examination was done with clinical findings of Class I diastolic dysfunction. Left ventricular systolic function is normal. Ejection Fraction = 65-70%. The left ventricular wall motion is normal. Right Ventricle The right ventricle is normal in size and function. The right ventricular systolic function is normal as assessed by tricuspid annular plane systolic excursion (TAPSE) (normal >1.5 cm). Atria The left atrial size is normal. Right atrial size is normal. No ASD detected; PFO is not assessed. Mitral Valve The mitral valve is normal. There is no mitral valve stenosis. There is mild mitral regurgitation. Tricuspid Valve The tricuspid valve is normal. There is no tricuspid stenosis. There is mild tricuspid regurgitation. Estimated right ventricular systolic pressure 41 mm Hg. Aortic Valve The aortic valve is trileaflet. The aortic valve opens well. Aortic valve sclerosis mild, without significant aortic valvular stenosis. Aortic stenosis is absent. No aortic regurgitation is present. Pulmonic Valve The pulmonic valve is not well visualized. There is no significant pulmonary regurgitation. Great Vessels The aortic root is normal size. Pericardium/Pleural There is no pericardial effusion. Great Vessels Normal inferior vena cava diameter and respiratory variation suggests normal central venous pressure. [~ rep ct add3]] CT ANGIOGRAM OF THE CHEST CLINICAL HISTORY: Dyspnea. COMPARISON STUDY: Chest CT dated 07/29/2016 and 04/29/2016. TECHNIQUE: Following the IV administration of 97 cc of Optiray 320, CT angiogram of the chest was performed from the upper abdomen to the thoracic inlet utilizing the pulmonary embolus protocol. Images are reviewed in the axial, sagittal, and coronal planes. 3-D MIPS images are created and assessed. IV contrast was administered without complication. The examination is degraded by streak artifact from the left arm which could not be elevated above the chest. The examination is also degraded by motion artifact. CT DOSE: 302.08 mGy.cm FINDINGS: Thyroid: Atrophic. Thoracic aorta: There is advanced atherosclerotic disease involving the thoracic aorta. The arch demonstrates standard 3-vessel anatomy. The ascending thoracic aorta and the aortic arch are normal in caliber. There is aneurysmal dilatation of the descending thoracic aorta which measures up to 4.2 cm proximally and up to 3.9 cm just above the esophageal hiatus. This is similar in appearance to prior examinations. Intraluminal thrombus is identified. No dissection is seen. Pulmonary vasculature: The pulmonary trunk is normal in caliber. There are no filling defects identified in main, lobar, or segmental pulmonary branches to suggest pulmonary embolus. Heart: The heart is significantly enlarged and there is a trace pericardial effusion. The coronary arteries are densely calcified. Lungs and pleural spaces: Evaluation of the lung parenchyma is degraded by respiratory motion artifact. Emphysema is observed. The trachea and central airways appear clear. There is patchy airspace consolidation in the right upper and right lower lobes, most confluent at the right lung base. Minimal consolidative change is also seen at the left lung base. This is new from 07/29/2016 and typical appearance for pneumonia. Fat-containing Bochdalek hernias are present at both lung bases. There is a trace right pleural effusion. Mediastinum: There are scattered subcentimeter mediastinal lymph nodes. These are not pathologically enlarged by size criteria. Sherry: Clear. Axillae: There is no axillary lymphadenopathy. Upper abdomen: The visualized kidneys demonstrate cortical atrophy. Cysts are seen in the upper poles measuring up to 7 cm on the right. There is glandular atrophy of the imaged pancreas. Skeletal structures: The skeletal structures are osteopenic. Advanced degenerative change and hyperkyphosis is noted throughout the thoracic spine. No lytic or blastic bony lesions are seen. There is a severe compression deformity of T12 and a moderate compression deformity of L3. There are numerous healed bilateral rib fractures. Soft tissues: Again seen is a 1.6 cm irregular nodule in the right breast seen on image #161. IMPRESSION: 1. There is no evidence of pulmonary embolus in the main, lobar, or segmental pulmonary arteries. 2. Cardiomegaly and emphysema. 3. There is patchy airspace consolidation throughout the right lung, most confluent at the right lung base. Minimal patchy consolidative change is also seen in the left lung base. The appearance is typical for pneumonia/aspiration pneumonitis. Clinical correlation will be required and radiographic follow-up to resolution is recommended. 4. 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 5. Trace right pleural effusion. 6. Again seen is a 1.6 cm irregular nodule in the right breast. This is indeterminant. Follow-up with an outpatient mammogram ultrasound is again recommended. 7. Additional findings as above. Electronically signed by: Antoine Laird M.D. 08/09/2016 4:[address]CONTRAST CT DOSE: 537.48 mGy.cm HISTORY: Left-sided numbness. Short of breath. TECHNIQUE: Multiaxial CT images of the head were performed without the use of intravenous contrast. Automated exposure control was utilized for this study. Comparison: Head CT 05/19/2016. Findings: The paranasal sinuses and mastoid air cells are clear. The calvarium and skull base are intact. There is no mass, hematoma, midline shift, acute infarct. White matter hypodensity is nonspecific but suggestive of microvascular ischemic change. The ventricles and sulci demonstrate mild age-related involutional changes. Impression: No acute intracranial abnormality. Atrophy and microvascular ischemic changes. Electronically signed by: Grover Tomlinson M.D. 08/09/2016 3:20 PM Dictated Date/Time: 08/09/2016 3:16 PM [~ rep ct add3]] ULTRASOUND BILATERAL LOWER EXTREMITY VENOUS CLINICAL HISTORY: Asymmetric lower extremity edema. COMPARISON STUDY: No priors. TECHNIQUE: Real-time, grayscale, and color Doppler sonography of the deep veins of the right and left lower extremity was performed from the inguinal crease to the calf. Compression and augmentation were utilized. FINDINGS: There is no sonographic evidence of deep venous thrombosis identified in the right or left lower extremity. The common femoral, superficial femoral, and popliteal veins are patent and normally compressible bilaterally. The greater saphenous vein and the profunda femoris vein at the junction with the common femoral vein are clear in both legs. The visualized calf veins are patent bilaterally. A minimally complex right-sided popliteal cyst measures 3.3 x 1.0 x 2.0 cm. IMPRESSION: 1. There is no sonographic evidence of deep venous thrombosis identified in the right or left lower extremity. 2. Small right popliteal cyst. Electronically signed by: Antoine Laird M.D. 08/11/2016 10:12 AM Dictated Date/Time: 08/11/2016 10:11 AM Last Resulted CBC 08/10/16 05:41 Red Blood Count 3.64, Mean Corpuscular Volume 92.0, Mean Corpuscular Hemoglobin 30.8, Mean Corpuscular Hemoglobin Concent 33.4, Mean Platelet Volume 9.2, Neutrophils (%) (Auto) 59.6, Lymphocytes (%) (Auto) 27.6, Monocytes (%) (Auto) 8.8, Eosinophils (%) (Auto) 2.7, Basophils (%) (Auto) 0.5, Neutrophils # (Auto) 6.30, Lymphocytes # (Auto) 2.91, Monocytes # (Auto) 0.93, Eosinophils # (Auto) 0.28, Basophils # (Auto) 0.05 Last Resulted BMP 08/10/16 05:41 Consultations: none inpatient - arranging outpatient follow up with neurology and psychiatry Medication Reconciliation New Medications: Cefdinir (Omnicef) 300 Mg Cap 300 MG PO Q12H, #16 CAP Cholecalciferol (Vitamin D3) 1,000 Inter.unit Tab 2000 INTER.UNIT PO QAM, #30 TAB Ergocalciferol (Vitamin D) 50,000 Interunit Cap 47978 INTERUNIT PO Camacho@0900, #4 CAP Continued Medications: Albuterol Hfa (Ventolin Hfa) 200 Puffs/04521 Mcg Aers 2 PUFFS INH Q4 PRN for cough/shortness of breath, #1 INHALER Dispense with chamber Atenolol (Tenormin) 50 Mg Tab 50 MG PO DAILY, TAB Multiple Vitamins W/ Minerals (Ocuvite) 1 Tab Tab 1 TAB PO QAM Discontinued Medications: Levofloxacin (Levaquin) 500 Mg Tab 1 TAB PO DAILY for 10 Days, #10 TAB Discharge Exam Physical Exam: General Appearance: no apparent distress Eyes: EOMI ENT: hearing grossly normal Neck: trachea midline Respiratory/Chest: no respiratory distress, no accessory muscle use, + rales (faint base R. good air entry, no r/r/w. 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 will want her to see neurology to r/o any "off the beaten path" dementia syndromes that could come with hallucinations - but nothing seems likely. would also have her see psych to confirm depression w psychotic features, and to assist in treatment. pt/dtr both amenable to this all being done as outpt - just wanted to have a ddx and a direction to go. venous insufficiency -leg swelling almost certainly venous insufficiency related. doppler negative for clot depression -see above; also encouraged lifestyle habits that can help w depression moderate pulmonary HTN -based on R sided echo pressures -O2 HS once able to be arranged DVT proph -lovenox utilized during her stay chronic diastolic CHF -compensated -doubt this contributes to her BORREGO much if at all, since lack of pulmonary edema would therefore also mean no real reason to explain desaturation osteoporosis -supplement vitamin D, recheck in ~12wks -start bisphosphonate as outpt small aortic aneurysm -ongoing outpatient follow up breast lump- -seen on CT (noted above) -outpt evaluation and follow up stable for discharge to home Total Time Spent: Greater than 30 minutes This includes examination of the patient, discharge planning, medication reconciliation, and communication with other providers. Discharge Instructions Please refer to the electronic Patient Visit Report (Discharge Instructions) for additional information. 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 Contreras MD
[2016-08-12] MEDS ORDERED: LIDODERM (LIDOCAINE) PATCH 5% TD SCH (09:00)
== END 2016-08-11 14:24 | disposition home or self-care (01) | DRG 177 ==
LOC: ENRESERVDT → ENRESERVTM → EDBD 14:21 → C.EDA 14:24 → C.2T 18:35 → C.MED 08-10 13:54
PROVIDERS: ADMIT Hospitalist; ATTEND Family Medicine
DX: J69.0 Pneumonitis due to inhalation of food and vomit (principal); J96.90 Respiratory failure, unspecified, unspecified whether with hypoxia or hypercapnia; J90 Pleural effusion, not elsewhere classified; I08.1 Rheumatic disorders of both mitral and tricuspid valves; J43.9 Emphysema, unspecified; I71.2 Thoracic aortic aneurysm, without rupture; E87.6 Hypokalemia; M81.0 Age-related osteoporosis without current pathological fracture; F01.50 Vascular dementia, unspecified severity, without behavioral disturbance, psychotic disturbance, mood disturbance, and anxiety; F32.9 Major depressive disorder, single episode, unspecified; N63 Unspecified lump in breast; I10 Essential (primary) hypertension; Z66 Do not resuscitate; Z87.891 Personal history of nicotine dependence; Z79.899 Other long term (current) drug therapy

== ENCOUNTER → 2016-08-26 | Day surgery (SDC) | payer OTHER ==
[2016-07-23 08:09] VITALS: BMI 21.0
[2016-07-30 13:03] VITALS: BMI 21.0
[2016-08-15 09:25] VITALS: Ht 160 cm; Wt 54.1 kg
[~2016-08-26] VITALS: Ht 160 cm; Wt 54.1 kg
[~2016-08-26] MED LIST changes: +500ML BSS 0.3ML EPI 1:1000PF IRRIG ONE; +ACETAMINOPHEN 325 MG TAB PO PRN; +AMVISC PLUS 0.8ML SYRINGE INT OCU ONE; +BRIMONIDINE TART 0.2% OP SOLN PER DROP CHARGE ONE; +BSS FLUSH ONE; +CEFD1CAP14 PO; +CYCLOPENTOLATE HCL 1% OP SOLN PER DROP CHARGE OPR SCH; +ENDOCOAT 0.85ML SYRINGE INT OCU ONE; +EpINEphrine INJ 1MG/ML AMP 1 MG/ML AMP ONE; +KETOROLAC 0.5% OP SOLN PER DROP CHARGE OPR SCH; +LACTATED RINGER'S 1000ML 500 ML IV SCH; -LEVO1TAB34 PO; +LIDOCAINE 4% OP SOLN DROP CHARGE ONE; +LIDOCAINE 4% OP SOLN DROP CHARGE OPR SCH; +LIDOCAINE HCL 1% MPF 2 ML VIAL ONE; +MIDAZOLAM HCL 1 MG/ML 2ML VIAL ONE; +MOXIFLOXACIN OPH SOLN PER DROP CHARGE ONE; +MOXIFLOXACIN OPH SOLN PER DROP CHARGE OPR SCH; +PHENYLEPHRINE HCL 2.5% OP SOLN PER DROP CHARGE OPR SCH; +POVIDONE-IODINE OP SOLN 30 ML BTL ONE; +PROPARACAINE 0.5% OP SOLN PER DROP CHARGE OPR SCH; +TOBRAMYCIN/DEXAMETHASONE OPH OINT PER APPLN CHARGE ONE; +TROPICAMIDE 1% OP SOLN PER DROP CHARGE OPR SCH; +VTMD PO; +VTMD1000 PO
[2016-08-26] MEDS: PHENYLEPHRINE HCL 2.5% OP SOLN PER DROP CHARGE OPR SCH ×2 (06:41→06:46)
[2016-08-26] MEDS: TROPICAMIDE 1% OP SOLN PER DROP CHARGE OPR SCH ×2 (06:42→06:47)
[2016-08-26] MEDS: CYCLOPENTOLATE HCL 1% OP SOLN PER DROP CHARGE OPR SCH ×2 (06:43→06:48)
[2016-08-26] MEDS: KETOROLAC 0.5% OP SOLN PER DROP CHARGE OPR SCH ×2 (06:44→06:49)
[2016-08-26] MEDS: MOXIFLOXACIN OPH SOLN PER DROP CHARGE OPR SCH ×2 (06:45→06:55)
--- NOTE | 2016-08-26 06:52 | History & Physical Bridge - [place] ---
H&P Re-Evaluation Bridge Note: I have examined the patient, reviewed the History & Physical and in the interval since the performance of the History & Physical I have noted the following changes of clinical significance: No changes noted
--- NOTE | 2016-08-26 07:29 | Discharge Instructions-SurgCtr ---
Discharge Instructions Visit Reason for Visit: Cataract Right Eye Discharge Discharge Diagnosis / Problem: cataract right eye Discharge Goals Goal(s): Improve function Activity Recommendations Activity Limitations: per Instructions/Follow-up section Lifting Limitations: no more than 5 pounds Anesthesia . Post Anesthesia Instructions: If you have had General Anesthesia or IV Sedation: * Do not drive today. * Resume driving when surgeon permits. * Do not make important decisions or sign legal documents today. * Call surgeon for: 1. Temperature elevations greater than 101 degrees F. 2. Uncontrollable pain. 3. Excessive bleeding. 4. Persistent nausea and vomiting. 5. Medication intolerance (nausea, vomiting or rash). * For nausea and vomiting use only clear liquids such as: tea, soda, bouillon until nausea subsides, then gradually increase diet as tolerated. * If you have any concerns or questions, call your surgeon's office. If physician is unavailable and it is an emergency, call 911 or go to the nearest emergency room. . Instructions / Follow-Up Instructions / Follow-Up ACTIVITY RECOMMENDATIONS: * Light activities * You may walk outside, read, watch television. * Mild irritation and blurred vision are common for the first few days, redness around the white part of the eye is common. MEDICATIONS: Resume previous medications unless instructed otherwise by your surgeon. Eye drops (today and tomorrow): Gatifloxacin - one drop in operative eye every 2 hours while awake Prednisolone 1% - one drop in operative eye every 2 hours while awake Bromfenac - one drop in operative eye once daily SPECIAL CARE INSTRUCTIONS: * If any problems or concerns, please call Dr. Arrington's office at . * Keep plastic shield taped over eye to sleep at night. * Keep plastic shield taped over eye except to administer eye drops. * Keep plastic shield on until office visit the following day. FOLLOW UP VISIT: Follow-up with Dr. Arrington in the [place] office as scheduled. If not already scheduled, please call the office at . Diet Recommendations Home Diet: resume previous diet Procedures Procedures Performed: Right Cataract Phacoemulsification With Intraocular Lens Implant Pending Studies Studies pending at discharge: no Medical Emergencies . Who to Call and When: Medical Emergencies: If at any time you feel your situation is an emergency, please call 911 immediately. . Non-Emergent Contact Non-Emergency issues call your: Table Games Floor Supervisor . . "Provider Documentation" section prepared by Mike Arrington.
--- NOTE | 2016-08-26 07:30 | [facility] Post Operative Brief Note ---
Immediate Operative Summary Operative Date Aug 26, 2016. Pre-Operative Diagnosis Right Eye Cataract Post-Operative Diagnosis Same Procedure(s) Performed Right Cataract Phacoemulsification With Intraocular Lens Implant Surgeon Dr Arrington Operations Forester Surgeon(s) None Estimated Blood Loss 0ml Findings cataract right eye Specimens None Complication(s) None Disposition Recovery Room / PACU
--- NOTE | 2016-08-26 07:40 | OPERATIVE REPORT ---
DATE OF OPERATION: 08/26/2016 PREOPERATIVE DIAGNOSIS: Cataract, right eye. POSTOPERATIVE DIAGNOSIS: Cataract, right eye. PROCEDURE: Phacoemulsification cataract extraction with intraocular lens placement, right eye. SURGEON: Dr. Arrington. COMPLICATIONS: None. ESTIMATED BLOOD LOSS: None. ANESTHESIA: Topical with sedation. OPERATION AND FINDINGS: After informed consent was obtained in the holding area the patient was wheeled back to the Operating Room where cardiac monitoring leads and oxygen by nasal cannula was administered by Anesthesia. Gentle IV sedation was given, and the patient's right eye was prepped and draped in usual sterile fashion. A wire lid speculum was placed into the right eye and the operating microscope was swung into position. Using 0.12 forceps and a Supersharp blade a paracentesis port was made 3 o'clock hours away from the 9 o'clock position of patient's right eye. 1% non-preserved Lidocaine was then injected into the anterior chamber for anesthesia. A 2.2 mm keratotome blade was then used to make a shelved clear corneal incision at the 9 o'clock position of her right eye. Amvisc was injected into the anterior chamber and a cystotome and Utrata forceps were used to perform a curvilinear capsulorrhexis. BSS on a hydrodissection cannula was used to hydrodissect the lens nucleus away from the capsular bag. The phacoemulsification handpiece was then used in a stop and chop fashion to remove the lens nucleus. The irrigation and aspiration handpiece was then used to remove the residual cortical material. Amvisc was injected into the capsular bag and anterior chamber and a Bausch \T\ Lomb MX60 20.5 Diopter intraocular lens was injected into the capsular bag. Irrigation and aspiration handpiece was used to remove the residual viscoelastic material. The wounds were hydrated and noted to be watertight. The wire lid speculum was removed from the eye. Vigamox, Brimonidine, and TobraDex ointment were placed on the eye and it was shielded. It should be noted that EndoCoat was used throughout the case to protect the cornea endothelium in this dense cataract patient. DISPOSITION: The patient tolerated the procedure well and was wheeled to the post anesthesia care unit in stable condition. I attest to the content of the Intraoperative Record and any orders documented therein. Any exceptions are noted below. I attest to the content of the Intraoperative Record and any orders documented therein. Any exceptions are noted below. MTDD
[2016-08-26 07:42] VITALS: TEMP 36.5
[2016-08-26 07:59] VITALS: BP 151/80; PULSE 53; O2SAT 97
--- NOTE | 2016-08-26 08:03 | Anesthesia Progress Nt - [facility] ---
Anesthesia Post Op Note Date & Time Aug 26, 2016 at 08:03 Vital Signs Pain Intensity: 0 Vital Signs Past 12 Hours Date Time Temp Pulse Resp B/P Pulse Ox O2 Delivery O2 Flow Rate FiO2 08/26/16 07:59 53 151/80 97 08/26/16 07:42 36.5 48 24 155/84 97 Room Air 08/26/16 06:47 36.4 65 16 149/85 94 Room Air Notes Mental Status: alert / awake / arousable, participated in evaluation Nausea / Vomiting: adequately controlled Pain: adequately controlled Airway Patency, RR, SpO2: stable & adequate BP & HR: stable & adequate Hydration State: stable & adequate Anesthetic Complications: no major complications apparent
== END | disposition home or self-care (01) ==
LOC: X.SURG 06:27
PROVIDERS: ATTEND Ophthalmology
DX: H26.9 Unspecified cataract (principal); I10 Essential (primary) hypertension; Z90.710 Acquired absence of both cervix and uterus; Z98.890 Other specified postprocedural states; Z83.3 Family history of diabetes mellitus; Z87.891 Personal history of nicotine dependence; M19.90 Unspecified osteoarthritis, unspecified site

== ENCOUNTER → 2016-09-09 | Day surgery (SDC) | payer OTHER ==
[2016-09-05 10:56] VITALS: Ht 160 cm; Wt 51.4 kg
[~2016-09-09] VITALS: Ht 160 cm; Wt 51.4 kg
[~2016-09-09] MED LIST changes: +ATROPINE SULFATE 0.1 MG/ML 5ML SYR IV PRN; -CEFD1CAP14 PO; -CYCLOPENTOLATE HCL 1% OP SOLN PER DROP CHARGE OPR SCH; +EpHEDrine SULFATE INJ 50 MG/ML AMP IV PRN; -KETOROLAC 0.5% OP SOLN PER DROP CHARGE OPR SCH; +LIDOCAINE 4% OP SOLN DROP CHARGE OPL SCH; -LIDOCAINE 4% OP SOLN DROP CHARGE OPR SCH; -MOXIFLOXACIN OPH SOLN PER DROP CHARGE OPR SCH; -PHENYLEPHRINE HCL 2.5% OP SOLN PER DROP CHARGE OPR SCH; +PROPARACAINE 0.5% OP SOLN PER DROP CHARGE OPL SCH; -PROPARACAINE 0.5% OP SOLN PER DROP CHARGE OPR SCH; -TROPICAMIDE 1% OP SOLN PER DROP CHARGE OPR SCH; -VNTHFA/IN INH; -VTMD PO; -VTMD1000 PO
[2016-09-09] MEDS: PHENYLEPHRINE HCL 2.5% OP SOLN PER DROP CHARGE OPL SCH ×2 (08:09→08:14)
[2016-09-09] MEDS: TROPICAMIDE 1% OP SOLN PER DROP CHARGE OPL SCH ×2 (08:10→08:15)
[2016-09-09] MEDS: CYCLOPENTOLATE HCL 1% OP SOLN PER DROP CHARGE OPL SCH ×2 (08:11→08:16)
[2016-09-09] MEDS: KETOROLAC 0.5% OP SOLN PER DROP CHARGE OPL SCH ×2 (08:12→08:17)
[2016-09-09] MEDS: MOXIFLOXACIN OPH SOLN PER DROP CHARGE OPL SCH ×2 (08:13→08:23)
[2016-09-09 09:07] VITALS: TEMP 37.1
--- NOTE | 2016-09-09 09:07 | Discharge Instructions-SurgCtr ---
Discharge Instructions Visit Reason for Visit: Cataract Left Eye Discharge Discharge Diagnosis / Problem: cataract left eye Discharge Goals Goal(s): Improve function Activity Recommendations Activity Limitations: per Instructions/Follow-up section Lifting Limitations: no more than 5 pounds Anesthesia . Post Anesthesia Instructions: If you have had General Anesthesia or IV Sedation: * Do not drive today. * Resume driving when surgeon permits. * Do not make important decisions or sign legal documents today. * Call surgeon for: 1. Temperature elevations greater than 101 degrees F. 2. Uncontrollable pain. 3. Excessive bleeding. 4. Persistent nausea and vomiting. 5. Medication intolerance (nausea, vomiting or rash). * For nausea and vomiting use only clear liquids such as: tea, soda, bouillon until nausea subsides, then gradually increase diet as tolerated. * If you have any concerns or questions, call your surgeon's office. If physician is unavailable and it is an emergency, call 911 or go to the nearest emergency room. . Instructions / Follow-Up Instructions / Follow-Up ACTIVITY RECOMMENDATIONS: * Light activities * You may walk outside, read, watch television. * Mild irritation and blurred vision are common for the first few days, redness around the white part of the eye is common. MEDICATIONS: Resume previous medications unless instructed otherwise by your surgeon. Eye drops (today and tomorrow): Gatifloxacin - one drop in operative eye every 2 hours while awake Prednisolone 1% - one drop in operative eye every 2 hours while awake Bromfenac - one drop in operative eye once daily SPECIAL CARE INSTRUCTIONS: * If any problems or concerns, please call Dr. Arrington's office at . * Keep plastic shield taped over eye to sleep at night. * Keep plastic shield taped over eye except to administer eye drops. * Keep plastic shield on until office visit the following day. FOLLOW UP VISIT: Follow-up with Dr. Arrington in the [place] office as scheduled. If not already scheduled, please call the office at . Diet Recommendations Home Diet: resume previous diet Procedures Procedures Performed: Left Cataract Phacoemulsification With Intraocular Lens Implant Pending Studies Studies pending at discharge: no Medical Emergencies . Who to Call and When: Medical Emergencies: If at any time you feel your situation is an emergency, please call 911 immediately. . Non-Emergent Contact Non-Emergency issues call your: Ornamental Metal Worker Apprentice . . "Provider Documentation" section prepared by Mike Arrington.
--- NOTE | 2016-09-09 09:07 | [facility] Post Operative Brief Note ---
Immediate Operative Summary Operative Date Sep 09, 2016. Pre-Operative Diagnosis cataract left eye Post-Operative Diagnosis same Procedure(s) Performed Left Cataract Phacoemulsification With Intraocular Lens Implant Surgeon Dr. Arrington Data Capture Specialist Surgeon(s) none Estimated Blood Loss 0 Findings cataract left eye Specimens none Complication(s) None Disposition Recovery Room / PACU
--- NOTE | 2016-09-09 09:23 | OPERATIVE REPORT ---
DATE OF OPERATION: 09/09/2016 PREOPERATIVE DIAGNOSIS: Cataract, left eye. POSTOPERATIVE DIAGNOSIS: Cataract, left eye. PROCEDURE: Phacoemulsification cataract extraction with intraocular lens placement, left eye. SURGEON: Dr. Arrington. COMPLICATIONS: None. ESTIMATED BLOOD LOSS: None. ANESTHESIA: Topical with sedation. OPERATION AND FINDINGS: After informed consent was obtained in the holding area the patient was wheeled back to the Operating Room where cardiac monitoring leads and oxygen by nasal cannula was administered by Anesthesia. Gentle IV sedation was given, and the patient's left eye was prepped and draped in usual sterile fashion. A wire lid speculum was placed into the left eye and the operating microscope was swung into position. Using 0.12 forceps and a Supersharp blade a paracentesis port was made 3 o'clock hours away from the 3 o'clock position of patient's left eye. 1% non-preserved Lidocaine was then injected into the anterior chamber for anesthesia. A 2.2 mm keratotome blade was then used to make a shelved clear corneal incision at the 3 o'clock position of her left eye. Amvisc was injected into the anterior chamber and a cystotome and Utrata forceps were used to perform a curvilinear capsulorrhexis. BSS on a hydrodissection cannula was used to hydrodissect the lens nucleus away from the capsular bag. The phacoemulsification handpiece was then used in a stop and chop fashion to remove the lens nucleus. The irrigation and aspiration handpiece was then used to remove the residual cortical material. Amvisc was injected into the capsular bag and anterior chamber and a Bausch \T\ Lomb MX60 21.0 Diopter intraocular lens was injected into the capsular bag. Irrigation and aspiration handpiece was used to remove the residual viscoelastic material. The wounds were hydrated and noted to be watertight. The wire lid speculum was removed from the eye. Vigamox, Brimonidine, and TobraDex ointment were placed on the eye and it was shielded. It should be noted that EndoCoat was used extensively throughout the case to protect the cornea endothelium. DISPOSITION: The patient tolerated the procedure well and was wheeled to the post anesthesia care unit in stable condition. I attest to the content of the Intraoperative Record and any orders documented therein. Any exceptions are noted below. I attest to the content of the Intraoperative Record and any orders documented therein. Any exceptions are noted below. MTDD
--- NOTE | 2016-09-09 09:31 | Anesthesia Progress Nt - [facility] ---
Anesthesia Post Op Note Date & Time Sep 09, 2016 at 09:30 Vital Signs Pain Intensity: 0 Vital Signs Past 12 Hours Date Time Temp Pulse Resp B/P Pulse Ox O2 Delivery O2 Flow Rate FiO2 09/09/16 09:07 37.1 55 20 142/73 97 Room Air 09/09/16 08:02 36.5 53 20 168/78 98 Room Air Notes Mental Status: alert / awake / arousable, participated in evaluation Pt Amnestic to Procedure: Yes Nausea / Vomiting: adequately controlled Pain: adequately controlled Airway Patency, RR, SpO2: stable & adequate BP & HR: stable & adequate Hydration State: stable & adequate Anesthetic Complications: no major complications apparent
[2016-09-09 09:33] VITALS: BP 129/77; PULSE 59; O2SAT 96
== END | disposition home or self-care (01) ==
LOC: X.SURG 07:54
PROVIDERS: ATTEND Ophthalmology
DX: H26.9 Unspecified cataract (principal); H54.7 Unspecified visual loss; F32.9 Major depressive disorder, single episode, unspecified; I10 Essential (primary) hypertension; Z90.710 Acquired absence of both cervix and uterus

== ENCOUNTER → 2016-10-01 | Outpatient (CLI) | payer OTHER ==
[~2016-10-01] MED LIST changes: -500ML BSS 0.3ML EPI 1:1000PF IRRIG ONE; -ACETAMINOPHEN 325 MG TAB PO PRN; -AMVISC PLUS 0.8ML SYRINGE INT OCU ONE; -ATROPINE SULFATE 0.1 MG/ML 5ML SYR IV PRN; -BRIMONIDINE TART 0.2% OP SOLN PER DROP CHARGE ONE; -BSS FLUSH ONE; -ENDOCOAT 0.85ML SYRINGE INT OCU ONE; -EpHEDrine SULFATE INJ 50 MG/ML AMP IV PRN; -EpINEphrine INJ 1MG/ML AMP 1 MG/ML AMP ONE; -LACTATED RINGER'S 1000ML 500 ML IV SCH; -LIDOCAINE 4% OP SOLN DROP CHARGE ONE; -LIDOCAINE 4% OP SOLN DROP CHARGE OPL SCH; -LIDOCAINE HCL 1% MPF 2 ML VIAL ONE; -MIDAZOLAM HCL 1 MG/ML 2ML VIAL ONE; -MOXIFLOXACIN OPH SOLN PER DROP CHARGE ONE; -POVIDONE-IODINE OP SOLN 30 ML BTL ONE; -PROPARACAINE 0.5% OP SOLN PER DROP CHARGE OPL SCH; -TOBRAMYCIN/DEXAMETHASONE OPH OINT PER APPLN CHARGE ONE
--- NOTE | 2016-10-01 15:12 | DIAGNOSTIC IMAGING REPORT ---
LEFT FOOT 3 VIEWS CLINICAL HISTORY: Left foot pain and swelling. No history of trauma. FINDINGS: 3 views of left foot are obtained. No prior studies are available for comparison at the time of dictation. The skeletal structures are osteopenic. No fracture is seen. Hammertoe deformities are suggested in the 2nd through 5th toes. Mild arthritic change is seen at the first metatarsophalangeal joint. The joint spaces of the foot are otherwise maintained. Mild soft tissue edema is noted in the forefoot. IMPRESSION: 1. Mild soft tissue swelling is noted in the forefoot. No acute bony abnormality is seen. 2. Osteopenia with mild arthritic change and suspected hammertoe deformities as above. Electronically signed by: Antoine Laird M.D. 10/01/2016 3:10 PM Dictated Date/Time: 10/01/2016 3:09 PM
== END | disposition home or self-care (01) ==
LOC: C.RAD1850 14:22
PROVIDERS: ATTEND Internal Medicine
DX: M79.672 Pain in left foot (principal); M85.872 Other specified disorders of bone density and structure, left ankle and foot

== ENCOUNTER → 2016-12-02 | Outpatient (CLI) | payer OTHER ==
[2016-12-02 18:07] LABS: ALT/SGPT 25 U/L (12-78); BLOOD UREA NITROGEN 18 mg/dl (7-18); CALCIUM 9.6 mg/dl (8.5-10.1); CARBON DIOXIDE 30 mmol/L (21-32); CHLORIDE 104 mmol/L (98-107); GLUCOSE 95 mg/dl (70-99); SODIUM 139 mmol/L (136-145)
[2016-12-02 18:11] LABS: ALB/GLOB RATIO 0.8 (0.9-2); ALKALINE PHOSPHATASE 95 U/L (45-117); AST/SGOT 17 U/L (15-37)
== END | disposition home or self-care (01) ==
LOC: C.LAB1850 16:57
PROVIDERS: ATTEND Internal Medicine
DX: E55.9 Vitamin D deficiency, unspecified (principal); I10 Essential (primary) hypertension

== ENCOUNTER → 2018-03-19 | Outpatient (CLI) | payer OTHER ==
[2018-03-19 13:02] LABS: BASO ABS # 0.11 K/uL (0-0.2); EOS % 0.9 %; EOS ABS # 0.09 K/uL (0-0.5); HEMATOCRIT 41.6 % (37-47); HEMOGLOBIN 13.6 g/dL (12.0-16.0); IG# 0.02 K/uL (0.00-0.02); LYMPH % 17.6 %; LYMPH ABS # 1.86 K/uL (1.2-3.4); MEAN CELL VOLUME 89.8 fL (80-100); MEAN CORPUSCULAR HEMOGLOBIN 29.4 pg (25-34); MEAN CORPUSCULAR HGB CONC 32.7 g/dl (32-36); MEAN PLATELET VOLUME 10.2 fL (7.4-10.4); MONO % 7.2 %; MONO ABS # 0.76 K/uL (0.11-0.59); NEUT % 73.1 %; NEUT ABS # 7.71 K/uL (1.4-6.5); PLATELET COUNT 328 K/uL (130-400); RED CELL DISTRIBUTION WIDTH CV 14.3 % (11.5-14.5); WHITE BLOOD COUNT 10.55 K/uL (4.8-10.8)
[2018-03-19 16:29] LABS: ALBUMIN 3.9 gm/dl (3.4-5.0); ALKALINE PHOSPHATASE 78 U/L (45-117); ALT/SGPT 16 U/L (12-78); AST/SGOT 16 U/L (15-37); BLOOD UREA NITROGEN 12 mg/dl (7-18); CALCIUM 9.2 mg/dl (8.5-10.1); CARBON DIOXIDE 28 mmol/L (21-32); CREATININE 0.85 mg/dl (0.60-1.20); GLUCOSE 101 mg/dl (70-99); POTASSIUM 3.8 mmol/L (3.5-5.1); SODIUM 138 mmol/L (136-145); TOTAL PROTEIN 7.4 gm/dl (6.4-8.2)
== END | disposition home or self-care (01) ==
LOC: C.LAB1850 12:13
PROVIDERS: ATTEND Internal Medicine
DX: E55.9 Vitamin D deficiency, unspecified (principal); I10 Essential (primary) hypertension

== ENCOUNTER 2019-05-26 12:52 | Inpatient (IN) ==
[2019-05-26 14:03] LABS: Basophils # (auto) 0.03 K/uL (0-0.2); Basophils % (auto) 0.2 %; Eosinophils # (auto) 0.04 K/uL (0-0.5); Eosinophils % (auto) 0.3 %; Hemoglobin 11.8 g/dL (12.0-16.0); Immature Granulocytes # (auto) 0.03 K/uL (0.00-0.02); Immature Granulocytes % (auto) 0.2 %; Lymphocytes # (auto) 0.93 K/uL (1.2-3.4); Lymphocytes % (auto) 7.3 %; Mean Corpuscular Hemoglobin 29.5 pg (25-34); Mean Corpuscular Hgb Conc 32.8 g/dL (32-36); Mean Platelet Volume 9.2 fL (7.4-10.4); Monocytes # (auto) 0.62 K/uL (0.11-0.59); Monocytes % (auto) 4.9 %; Neutrophils # (auto) 11.11 K/uL (1.4-6.5); Neutrophils % (auto) 87.1 %; Platelet Count 259 K/uL (130-400); RDW Coefficient of Variation 14.3 % (11.5-14.5); RDW Standard Deviation 47.2 fL (36.4-46.3); White Blood Count 12.76 K/uL (4.8-10.8)
[2019-05-26 14:08] LABS: Appearance Urine Clear (Clear); Bilirubin Urine Negative (Negative); Blood Urine Negative (Negative); Color Urine Yellow; Glucose Urine UA Negative (Negative); Ketones Urine 1+ (Negative); Leukocyte Esterase Urine Negative (Negative); Nitrite Urine Negative (Negative); Protein Urine Negative (Negative); Specific Gravity Urine 1.014 (1.000-1.030); Urobilinogen Urine Negative (Negative); pH Urine 6.5 (4.5-7.5)
[2019-05-26] MEDS ORDERED: SODIUM CHLORIDE 0.9% 1000ML 1,000 ML IV ONE (14:08)
[2019-05-26 14:12] LABS: INR 1.1 (0.9-1.1); Prothrombin Time 11.1 Seconds (9.0-12.0)
[2019-05-26 14:36] LABS: Albumin Globulin Ratio 1.1 (0.9-2); Albumin Level 3.7 gm/dl (3.4-5.0); BUN Creatinine Ratio 25.8 (10-20); Bilirubin,Total 0.4 mg/dl (0.2-1); Calcium 9.4 mg/dl (8.5-10.1); Creatinine Clr Calc Pharmacy 39.4 ml/min; Est GFR (Non-African American) 73.4; Globulin 3.3 gm/dl (2.5-4.0); Potassium 3.3 mmol/L (3.5-5.1)
--- NOTE | 2019-05-26 14:41 | XRay Report ---
XR chest 1V portable HISTORY: 84 years-old Female ams . Acutely altered mental status COMPARISON: Chest and rib radiographs and CTA chest 12/11/2018 TECHNIQUE: Portable AP view of the chest FINDINGS: Cardiac silhouette is enlarged, unchanged. Stable mediastinal widening with thoracic aortic aneurysm. Emphysema. No pneumothorax, pleural effusion, focal airspace consolidation or overt pulmonary edema. Mild chronic interstitial coarsening. Healed remote left-sided rib fractures. ORIF changes of the di stal left clavicle. Mild convex left curvature of the upper thoracic spine. Demineralized appearance of the bones with degenerative changes of the shoulders and spine. IMPRESSION: Chronic findings as above without acute process. The above report was generated using voice recognition software. It may contain grammatical, syntax o r spelling errors. Electronically signed by: Abhay Faust M.D. 05/26/2019 2:40 PM
[2019-05-26] MEDS ORDERED: IOVERSOL 100ml IV PRN (14:47)
--- NOTE | 2019-05-26 14:57 | CT Scan Report ---
CT head/brain wo con CLINICAL HISTORY: 84 years-old Female with ams. Acutely altered mental status with syncope TECHNIQUE: Multiple axial CT images of the head were obtained without contrast. A dose lowering tech nique was utilized adhering to the principles of ALARA. CT DOSE: 766.62 mGy.cm COMPARISON: Head CT 08/09/2016 FINDINGS: No acute intracranial hemorrhage, midline shift, intracranial mass, hydrocephalus, territorial ischem ia or abnormal extra-axial collection. Age-related involutional changes. Patchy white matter hypodens ities suggest chronic microvascular ischemic disease. Cerebral vascular calcifications are noted. The calvarium is intact. Prior bilateral cataract repair. The paranasal sinuses, mastoid air cells, a nd middle ear cavities are clear. IMPRESSION: No acute intracranial abnormality. The above report was generated using voice recognition software. It may contain grammatical, syntax o r spelling errors. Electronically signed by: Abhay Faust M.D. 05/26/2019 2:56 PM
[2019-05-26] MEDS ORDERED: PIPERACILLIN/TAZOBACTAM 3.375 GM in DEXTROSE 5% 100 ML IV STA (15:10)
[2019-05-26] MEDS ORDERED: PIPERACILL/TAZOBAC CONSULT ACTIVE PRN ×2 (15:10→17:04)
--- NOTE | 2019-05-26 15:13 | CT Scan Report ---
CT OF THE ABDOMEN AND PELVIS WITH CONTRAST CLINICAL HISTORY: Nausea, vomiting, diarrhea, hypothermia and hypotension. COMPARISON STUDY: CTA of the abdomen and pelvis December 11, 2018. TECHNIQUE: Following IV administration of 90 mL of Optiray-320, axial images of the abdomen and pelvi s were obtained from the lung bases to the proximal femurs. Images were reviewed in the axial, sagitt al, and coronal planes. IV contrast was administered without complication. Automated exposure contro l was utilized for the study. A dose lowering technique was utilized adhering to the principles of A BERE. FINDINGS: Interval dilatation of visualized portions of the descending thoracic aorta is unchanged si nce CT of December 11, 2018, measuring up to 5.2 x 4.7 cm. Cardiomegaly is noted. There is no pneumatosis, free air or portal venous gas. Bilateral renal cysts are unchanged. There is no hydronephrosis. The liver, spleen, adrenal glands and pancreas are unremarkable. There is no evidence for a bowel obstruc tion. The appendix is normal. Extensive colonic diverticulosis is noted without evidence for acute di verticulitis. There is mild mesenteric infiltration, slightly greater within the left abdomen. This i s most likely related to a nonspecific colitis. Mild colonic wall thickening is accentuated by underd istention. There is no abscess. The bladder is mildly distended. No lymphadenopathy is present. Old c ompression fractures within the spine are noted. Healing right ischiopubic ring fractures are noted. IMPRESSION: 1. Mild mesenteric infiltration, slightly greater within the left abdomen. Although indeterminate, th is is most likely related to a nonspecific colitis. No free air, pneumatosis or portal venous gas. 2. No change in aneurysmal dilatation of visualized portions of the descending thoracic aorta since C TA of December 11, 2018, measuring up to 5.2 x 4.7 cm. 3. Healing right ischiopubic ring fractures. Electronically signed by: Randall Dahl M.D. 05/26/2019 3:12 PM
--- NOTE | 2019-05-26 16:41 | History & Physical Report ---
Date of Service May 26, 2019 Assessment & Plan (1) Colitis: We will check stool cultures. Consult gastroenterology. Patient started on Zosyn in the ER. Continue the same. Present on Admission?: Yes (2) Acute metabolic encephalopathy: Check blood cultures. (3) Hypothermia: Patient put on vishal hugger (4) Nausea vomiting and diarrhea: Zofran as needed basis. Add Pepcid. (5) Memory changes: (6) COPD (chronic obstructive pulmonary disease): DuoNeb breathing treatment. PRN basis (7) Dementia: Continue home medications (8) Hypertension: Hold beta-gibran secondary to bradycardia. (9) Altered mental status: (10) DVT prophylaxis: Add subcu heparin for DVT prophylaxis History of Present Illness Chief Complaint: Nausea /vomiting/ diarrhea Primary Care Provider: Issac Pimentel MD The patient is 84-year-old female who presented to the ER with complaints of nausea, vomiting and diarrhea. Her symptoms started this morning approximately 10 AM. When her caregiver arrived, the patient was found to be cold and clammy and had decreased mental status. The patient denies any blood in the stools. No fever. The further work-up done in the ER shows that the patient had hypothermia on arrival and she was put on vishal hugger. She started on IV antibiotics for possible colitis. She has dehydration and has been started on IV fluids. She will be admitted for further evaluation and management. Her son-in-law is present at the bedside and CODE STATUS was discussed and patient is a full code. Allergies Allergy/AdvReac Type Severity Reaction Status Date / Time hydrocodone [From [place]] Allergy Hallucinati Verified 05/26/19 15:00 ng tramadol Allergy Hallucinati Verified 05/26/19 15:00 ng Home Medications Home Medications Medication Instructions Recorded Confirmed Type aspirin [Aspirin Low Dose] 81 mg PO DAILY 12/11/18 05/26/19 History cholecalciferol (vitamin D3) 2,000 unit PO DAILY 12/11/18 05/26/19 History [Vitamin D3] donepezil 10 mg PO HS 12/11/18 05/26/19 History sertraline 25 mg PO DAILY 12/11/18 05/26/19 History vit A,C and C-iafarz-cmatzfga 1 tab PO DAILY 12/11/18 05/26/19 History [Ocuvite with Lutein] atenolol 50 mg tablet 25 mg PO DAILY tab 02/05/19 05/26/19 History memantine 10 mg tablet 10 mg PO BID 30 Days #60 tab 04/20/19 05/26/19 Rx Past Med/Surg History Medical History Dementia ARF (acute renal failure) (Acute) HTN (hypertension) (Chronic) History of hysterectomy Surgical History History of section S/P hysterectomy Family History Mother Cancer Father Alcohol abuse Sister Diabetes Hypothyroidism Brother Diabetes Social History Preferred Language: Mohawk Communication Ability: Effective Barrel Coater Required: No Beliefs That Will Affect Care: None marital status: / Current Living Situation: Alone Other Information That Helps Us Care for You: No Feels Safe at Home: Yes Safety Concerns: Feels Safe At This Time Smoking Status: Former smoker Hx Alcohol Use: No Hx Substance Use: No Physical Activity Frequency: Daily Seatbelt Use: always Review of Systems Review of Systems: All systems reviewed & are unremarkable except as noted in HPI & below Constitutional: + fatigue, + malaise and + weakness Gastrointestinal: + nausea, + vomiting and + diarrhea/loose stools Physical Exam Physical Exam: GENERAL : No acute distress patient awake, patient on vishal hugger EYES: No icterus, gaze conjugate NOSE: No evidence of epistaxis MOUTH: No lesions or candidiasis, mucosa moist NECK: Supple LUNGS: CTA B/L, no wheezes, rales or rhonchi HEART: Regular, rate controlled ABDOMEN: Soft, NT, ND, BS Present EXTREMITIES: No LE edema, pedal pulses intact NEURO: A&OX3 Results & Data Vital Signs (Past 12 Hours) Vital Signs Temp Pulse Pulse Resp BP BP Pulse Ox 05/26/19 16:32 72 16 146/84 H 96 05/26/19 15:55 97.0 F L 71 18 149/79 H 99 05/26/19 14:28 95 F L 05/26/19 14:22 60 20 165/87 H 94 05/26/19 13:32 100 05/26/19 13:05 94.6 F L 56 L 16 192/86 H 99 Laboratory Results 05/26/19 13:54 05/26/19 13:[address] OF THE ABDOMEN AND PELVIS WITH CONTRAST CLINICAL HISTORY: Nausea, vomiting, diarrhea, hypothermia and hypotension. COMPARISON STUDY: CTA of the abdomen and pelvis December 11, 2018. TECHNIQUE: Following IV administration of 90 mL of Optiray-320, axial images of the abdomen and pelvis were obtained from the lung bases to the proximal femurs. Images were reviewed in the axial, sagittal, and coronal planes. IV contrast was administered without complication. Automated exposure control was utilized for the study. A dose lowering technique was utilized adhering to the principles of ALARA. FINDINGS: Interval dilatation of visualized portions of the descending thoracic aorta is unchanged since CT of December 11, 2018, measuring up to 5.2 x 4.7 cm. Cardiomegaly is noted. There is no pneumatosis, free air or portal venous gas. Bilateral renal cysts are unchanged. There is no hydronephrosis. The liver, spleen, adrenal glands and pancreas are unremarkable. There is no evidence for a bowel obstruction. The appendix is normal. Extensive colonic diverticulosis is noted without evidence for acute diverticulitis. There is mild mesenteric infiltration, slightly greater within the left abdomen. This is most likely related to a nonspecific colitis. Mild colonic wall thickening is accentuated by underdistention. There is no abscess. The bladder is mildly distended. No lymphadenopathy is present. Old compression fractures within the spine are noted. Healing right ischiopubic ring fractures are noted. IMPRESSION: 1. Mild mesenteric infiltration, slightly greater within the left abdomen. Although indeterminate, this is most likely related to a nonspecific colitis. No free air, pneumatosis or portal venous gas. 2. No change in aneurysmal dilatation of visualized portions of the descending thoracic aorta since CTA of December 11, 2018, measuring up to 5.2 x 4.7 cm. 3. Healing right ischiopubic ring fractures. CT head/brain wo con CLINICAL HISTORY: 84 years-old Female with ams. Acutely altered mental status with syncope TECHNIQUE: Multiple axial CT images of the head were obtained without contrast. A dose lowering technique was utilized adhering to the principles of ALARA. CT DOSE: 766.62 mGy.cm COMPARISON: Head CT 08/09/2016 FINDINGS: No acute intracranial hemorrhage, midline shift, intracranial mass, hydrocephalus, territorial ischemia or abnormal extra-axial collection. Age- related involutional changes. Patchy white matter hypodensities suggest chronic microvascular ischemic disease. Cerebral vascular calcifications are noted. The calvarium is intact. Prior bilateral cataract repair. The paranasal sinuses, mastoid air cells, and middle ear cavities are clear. IMPRESSION: No acute intracranial abnormality. XR chest 1V portable HISTORY: 84 years-old Female ams . Acutely altered mental status COMPARISON: Chest and rib radiographs and CTA chest 12/11/2018 TECHNIQUE: Portable AP view of the chest FINDINGS: Cardiac silhouette is enlarged, unchanged. Stable mediastinal widening with thoracic aortic aneurysm. Emphysema. No pneumothorax, pleural effusion, focal airspace consolidation or overt pulmonary edema. Mild chronic interstitial coarsening. Healed remote left-sided rib fractures. ORIF changes of the distal left clavicle. Mild convex left curvature of the upper thoracic spine. Demineralized appearance of the bones with degenerative changes of the shoulders and spine. IMPRESSION: Chronic findings as above without acute process. Code Status & VTE Plan Code Status Full code VTE Prophylaxis Plan VTE Prophylaxis will be ordered: Yes PG Care Time/CCT Total # of Minutes Spent Total Time Spent with Patient: Total time spent is greater than 50% in coordination of care (as documented) at patient's floor/unit and/or counseling patient: 60 min
[2019-05-26] MEDS ORDERED: POLYETHYLENE (MIRALAX) 17 GM PACK PO PRN (17:04)
[2019-05-26] MEDS ORDERED: MAGNESIUM HYDROXIDE SUSP 30 ML UDC PO PRN (17:04)
[2019-05-26] MEDS ORDERED: ALUMINUM/MAGNESIUM SUSP 30 ML UDC PO PRN (17:04)
[2019-05-26] MEDS ORDERED: ACETAMINOPHEN 325 MG TAB PO PRN (17:04)
[2019-05-26] MEDS: NSS + 20MEQ KCL 20 MEQ/1,000 ML BAG IV SCH (17:31)
[2019-05-26] MEDS: FAMOTIDINE 20 MG in SYRINGE 3 ML IV SCH (19:17)
--- NOTE | 2019-05-26 19:52 | Emergency Department Note ---
Entered by Taylor Preston acting as a scribe for Gigi Shirley DO History of Present Illness General Chief complaint: Nausea Source: patient and family Mode of arrival: EMS Limitations: altered mental status History of Present Illness Onset (ago): hour(s) Location: abdomen (Nausea) Pain Consistency: + other (Persistent) Quality: + other (Nausea) Associated symptoms: + nausea/vomiting and + other (Diarrhea) The patient is an 84 year old female presenting to the Emergency Department via EMS complaining of persistent nausea starting today at 1000. The patients family reports that the patient called them this morning complaining of nausea, vomiting and diarrhea. They state that they went to see the patient who was lying in bed and wasnt able to get up on her own or with their help, prompting them to call EMS. They explain that the patient is currently at her baseline. They note that the patent has a history of vascular dementia. The patient has no complaints. The HPI and ROS are limited due to Dementia. Home Medications Home Medications Medication Instructions Recorded Confirmed Type aspirin [Aspirin Low Dose] 81 mg PO DAILY 12/11/18 05/26/19 History cholecalciferol (vitamin D3) 2,000 unit PO DAILY 12/11/18 05/26/19 History [Vitamin D3] donepezil 10 mg PO HS 12/11/18 05/26/19 History sertraline 25 mg PO DAILY 12/11/18 05/26/19 History vit A,C and B-acibdd-dyrzphef 1 tab PO DAILY 12/11/18 05/26/19 History [Ocuvite with Lutein] atenolol 50 mg tablet 25 mg PO DAILY tab 02/05/19 05/26/19 History memantine 10 mg tablet 10 mg PO BID 30 Days #60 tab 04/20/19 05/26/19 Rx Allergies Allergy/AdvReac Type Severity Reaction Status Date / Time hydrocodone [From [place]] Allergy Hallucinati Verified 05/26/19 15:00 ng tramadol Allergy Hallucinati Verified 05/26/19 15:00 ng Past Med/Surg History Medical History Dementia ARF (acute renal failure) (Acute) HTN (hypertension) (Chronic) History of hysterectomy Surgical History History of section S/P hysterectomy Family History Mother Cancer Father Alcohol abuse Sister Diabetes Hypothyroidism Brother Diabetes Social History Preferred Language: Romanian Communication Ability: Effective Architectural Intern Required: No Beliefs That Will Affect Care: None marital status: / Current Living Situation: Alone Feels Safe at Home: Yes Smoking Status: Former smoker Hx Alcohol Use: No Hx Substance Use: No Physical Activity Frequency: Daily Seatbelt Use: always Review of Systems The HPI and ROS are limited due to Dementia. Physical Exam Vital Signs Vital Signs - 24 hr 05/26/19 13:05 05/26/19 13:32 05/26/19 14:22 Temperature 34.8 C L Temperature Source Rectal Sepsis Recent Fever Within 48 Hours No Sepsis New/Unexplained Change in Mental Status No Sepsis Action Taken by Nursing No Action Required Pulse Rate 56 L Pulse Rate [Left Finger] 60 Pulse Rhythm [Left Finger] Pulse Strength [Left Finger] Respiratory Rate 16 20 Respiratory Effort / Characteristics Respiratory Depth Respiratory Pattern Blood Pressure 192/86 H Blood Pressure [Left Arm] 165/87 H Blood Pressure Mean 121 Blood Pressure Mean [Left Arm] 113 Blood Pressure Position [Left Arm] Pulse Oximetry 99 100 94 Oxygen Delivery Method Room Air Room Air Room Air 05/26/19 14:28 05/26/19 15:55 Temperature 35 C L 36.1 C L Temperature Source Rectal Rectal Sepsis Recent Fever Within 48 Hours Sepsis New/Unexplained Change in Mental Status Sepsis Action Taken by Nursing Pulse Rate Pulse Rate [Left Finger] 71 Pulse Rhythm [Left Finger] Regular Pulse Strength [Left Finger] Normal Respiratory Rate 18 Respiratory Effort / Characteristics Non-Labored Spontaneous Respiratory Depth Normal Respiratory Pattern Regular Blood Pressure Blood Pressure [Left Arm] 149/79 H Blood Pressure Mean Blood Pressure Mean [Left Arm] 102 Blood Pressure Position [Left Arm] Lying Pulse Oximetry 99 Oxygen Delivery Method Room Air GENERAL: Patient is sitting up in bed wearing gown, chronically ill appearing, cachectic, disheveled. Bear hugger in place. HEAD: NC/AT. EYE EXAM: normal conjunctiva, PERRL and EOM's grossly intact OROPHARYNX: no exudate, no erythema, lips, buccal mucosa, and tongue normal and mucous membranes are moist NECK: supple, no nuchal rigidity, no adenopathy, non-tender LUNGS: Clear to auscultation. Normal chest wall mechanics HEART: no murmurs, S1 normal and S2 normal ABDOMEN: abdomen soft, non-tender, normo-active bowel sounds, no masses, no rebound or guarding. BACK: Back is symmetrical on inspection and there is no deformity, no midline tenderness, no CVA tenderness. SKIN: no rashes and no bruising PELVIS: stable to compression. UPPER EXTREMITIES: upper extremities are grossly normal. LOWER EXTREMITIES: No pitting edema. NEURO EXAM: Awake, alert and oriented to place and person, not year or month. Non focal. Course ED COURSE: Vital signs were reviewed and showed hypertension The patients medical record was reviewed The above diagnostic studies were performed and reviewed. ED treatments and interventions as stated above. 1400: The patient was evaluated in room B5. A complete history and physical examination was performed. 1515: I discussed the patients case with Dr. Meliza CORBIN hospitalist. He will evaluate the patient for further management. 1528: I updated the patient and her family at this time. 1530: Upon reevaluation, I discussed my findings with the patient and her family who understands and agrees with the treatment plan. Based on the patients age, coexisting illnesses, exam and lab findings the decision to treat as an inpatient was made. The patient remained stable while under my care. The patient will be evaluated for further management. Administered Medications Famotidine 20 mg/ Syringe 5 mls @ 2.5 mls/min IV DAILY SHAHANA Stop: 06/25/19 17:59 Last Admin: 05/26/19 19:17 Dose: 2.5 mls/min Documented by: [id number] Potassium Chloride/Sodium Chloride (Normal Saline W/20 Meq Kcl) 20 meq in 1,000 mls @ 100 mls/hr IV .Q10H SHAHANA Stop: 06/25/19 17:14 Last Admin: 05/26/19 17:31 Dose: 100 mls/hr Documented by: [id number] Discontinued Medications Sodium Chloride (Nss 1000ml) 1,000 mls @ 999 mls/hr IV .Q1H1M ONE Stop: 05/26/19 15:08 Last Infusion: 05/26/19 15:29 Dose: 0 mls/hr Documented by: [id number] Admin: 05/26/19 14:28 Dose: 999 mls/hr Documented by: [id number] Piperacillin Sod/Tazobactam (Sod 3.375 gm/ Dextrose) 115 mls @ 28.75 mls/hr IV NOW STA; Protocol Stop: 05/26/19 19:09 Last Infusion: 05/26/19 16:26 Dose: 0 mls/hr Documented by: [id number] Infusion: 05/26/19 15:52 Dose: 200 mls/hr Documented by: [id number] Admin: 05/26/19 15:46 Dose: 28.8 mls/hr Documented by: [id number] Ioversol (Optiray 320 100ml) 90 ml IV ONCE PRN PRN Reason: Interaction Checking Stop: 05/30/19 14:46 Last Admin: 05/26/19 14:47 Dose: 90 ml Documented by: [id number] Medical Decision Making Differential Diagnosis Differential diagnoses includes but is not limited to toxic, metabolic, infectious, traumatic, cardiac, neurologic, hematologic, psychiatric and inflammatory etiologies. Medical Records Attestation: I reviewed the patient's medical records. Home Medications Current Medication List: was personally reviewed by me Laboratory Data Attestation: I reviewed the patient's lab results. Result diagrams: 05/26/19 13:54 05/26/19 13:54 Lab Results 05/26/19 05/26/19 05/26/19 Range/Units 13:25 13:54 13:54 WBC 12.76 H (4.8-10.8) K/uL RBC 4.00 L (4.2-5.4) M/uL Hgb 11.8 L (12.0-16.0) g/dL Hct 36.0 L (37-47) % MCV 90.0 (80-100) fL MCH 29.5 (25-34) pg MCHC 32.8 (32-36) g/dL RDW Std Deviation 47.2 H (36.4-46.3) fL RDW Coeff of Jovani 14.3 (11.5-14.5) % Plt Count 259 (130-400) K/uL MPV 9.2 (7.4-10.4) fL Immature Gran % (Auto) 0.2 % Neut % (Auto) 87.1 % Lymph % (Auto) 7.3 % [place] % (Auto) 4.9 % Eos % (Auto) 0.3 % Baso % (Auto) 0.2 % Immature Gran # (Auto) 0.03 H (0.00-0.02) K/uL Neut # (Auto) 11.11 H (1.4-6.5) K/uL Lymph # (Auto) 0.93 L (1.2-3.4) K/uL [place] # (Auto) 0.62 H (0.11-0.59) K/uL Eos # (Auto) 0.04 (0-0.5) K/uL Baso # (Auto) 0.03 (0-0.2) K/uL PT 11.1 (9.0-12.0) Seconds INR 1.1 (0.9-1.1) Sodium (136-145) mmol/L Potassium (3.5-5.1) mmol/L Chloride (98-107) mmol/L Carbon Dioxide (21-32) mmol/L Anion Gap (3-11) BUN (7-18) mg/dl Creatinine (0.6-1.2) mg/dl Est Cr Clr Drug Dosing ml/min Est GFR ( Amer) Est GFR (Non-Af Amer) BUN/Creatinine Ratio (10-20) Glucose (70-99) mg/dl POC Lactic Acid [place] (0.90-1.70) mmol/L Calcium (8.5-10.1) mg/dl Total Bilirubin (0.2-1) mg/dl AST (15-37) U/L ALT (12-78) U/L Alkaline Phosphatase (45-117) U/L Total Protein (6.4-8.2) gm/dl Albumin (3.4-5.0) gm/dl Globulin (2.5-4.0) gm/dl Albumin/Globulin Ratio (0.9-2) Lipase (73-393) U/L Urine Color Yellow Urine Appearance Clear (Clear) Urine pH 6.5 (4.5-7.5) Ur Specific [place] 1.014 (1.000-1.030) Urine Protein Negative (Negative) Urine Glucose (UA) Negative (Negative) Urine Ketones 1+ H (Negative) Urine Blood Negative (Negative) Urine Nitrite Negative (Negative) Urine Bilirubin Negative (Negative) Urine Urobilinogen Negative (Negative) Ur Leukocyte Esterase Negative (Negative) 05/26/19 05/26/19 Range/Units 13:54 14:22 WBC (4.8-10.8) K/uL RBC (4.2-5.4) M/uL Hgb (12.0-16.0) g/dL Hct (37-47) % MCV (80-100) fL MCH (25-34) pg MCHC (32-36) g/dL RDW Std Deviation (36.4-46.3) fL RDW Coeff of Jovani (11.5-14.5) % Plt Count (130-400) K/uL MPV (7.4-10.4) fL Immature Gran % (Auto) % Neut % (Auto) % Lymph % (Auto) % [place] % (Auto) % Eos % (Auto) % Baso % (Auto) % Immature Gran # (Auto) (0.00-0.02) K/uL Neut # (Auto) (1.4-6.5) K/uL Lymph # (Auto) (1.2-3.4) K/uL [place] # (Auto) (0.11-0.59) K/uL Eos # (Auto) (0-0.5) K/uL Baso # (Auto) (0-0.2) K/uL PT (9.0-12.0) Seconds INR (0.9-1.1) Sodium 138 (136-145) mmol/L Potassium 3.3 L D (3.5-5.1) mmol/L Chloride 104 (98-107) mmol/L Carbon Dioxide 25 (21-32) mmol/L Anion Gap 9.0 (3-11) BUN 19 H (7-18) mg/dl Creatinine 0.74 (0.6-1.2) mg/dl Est Cr Clr Drug Dosing 39.4 ml/min Est GFR ( Amer) 85.0 Est GFR (Non-Af Amer) 73.4 BUN/Creatinine Ratio 25.8 H (10-20) Glucose 144 H (70-99) mg/dl POC Lactic Acid [place] 1.81 H (0.90-1.70) mmol/L Calcium 9.4 (8.5-10.1) mg/dl Total Bilirubin 0.4 (0.2-1) mg/dl AST 14 L (15-37) U/L ALT 15 (12-78) U/L Alkaline Phosphatase 87 (45-117) U/L Total Protein 7.0 (6.4-8.2) gm/dl Albumin 3.7 (3.4-5.0) gm/dl Globulin 3.3 (2.5-4.0) gm/dl Albumin/Globulin Ratio 1.1 (0.9-2) Lipase 213 (73-393) U/L Urine Color Urine Appearance (Clear) Urine pH (4.5-7.5) Ur Specific [place] (1.000-1.030) Urine Protein (Negative) Urine Glucose (UA) (Negative) Urine Ketones (Negative) Urine Blood (Negative) Urine Nitrite (Negative) Urine Bilirubin (Negative) Urine Urobilinogen (Negative) Ur Leukocyte Esterase (Negative) Imaging Data Radiologist's Impression: Radiology results as stated below per my review and the radiologist's interpretation: CT head/brain wo con CLINICAL HISTORY: 84 years-old Female with ams. Acutely altered mental status with syncope TECHNIQUE: Multiple axial CT images of the head were obtained without contrast. A dose lowering technique was utilized adhering to the principles of ALARA. CT DOSE: 766.62 mGy.cm COMPARISON: Head CT 08/09/2016 FINDINGS: No acute intracranial hemorrhage, midline shift, intracranial mass, hydrocephalus, territorial ischemia or abnormal extra-axial collection. Age- related involutional changes. Patchy white matter hypodensities suggest chronic microvascular ischemic disease. Cerebral vascular calcifications are noted. The calvarium is intact. Prior bilateral cataract repair. The paranasal sinuses, mastoid air cells, and middle ear cavities are clear. IMPRESSION: No acute intracranial abnormality. The above report was generated using voice recognition software. It may contain grammatical, syntax or spelling errors. Electronically signed by: Abhay Faust M.D. 05/26/2019 2:[address] OF THE ABDOMEN AND PELVIS WITH CONTRAST CLINICAL HISTORY: Nausea, vomiting, diarrhea, hypothermia and hypotension. COMPARISON STUDY: CTA of the abdomen and pelvis December 11, 2018. TECHNIQUE: Following IV administration of 90 mL of Optiray-320, axial images of the abdomen and pelvis were obtained from the lung bases to the proximal femurs. Images were reviewed in the axial, sagittal, and coronal planes. IV contrast was administered without complication. Automated exposure control was utilized for the study. A dose lowering technique was utilized adhering to the principles of ALARA. FINDINGS: Interval dilatation of visualized portions of the descending thoracic aorta is unchanged since CT of December 11, 2018, measuring up to 5.2 x 4.7 cm. Cardiomegaly is noted. There is no pneumatosis, free air or portal venous gas. Bilateral renal cysts are unchanged. There is no hydronephrosis. The liver, spleen, adrenal glands and pancreas are unremarkable. There is no evidence for a bowel obstruction. The appendix is normal. Extensive colonic diverticulosis is noted without evidence for acute diverticulitis. There is mild mesenteric infiltration, slightly greater within the left abdomen. This is most likely related to a nonspecific colitis. Mild colonic wall thickening is accentuated by underdistention. There is no abscess. The bladder is mildly distended. No lymphadenopathy is present. Old compression fractures within the spine are noted. Healing right ischiopubic ring fractures are noted. IMPRESSION: 1. Mild mesenteric infiltration, slightly greater within the left abdomen. Although indeterminate, this is most likely related to a nonspecific colitis. No free air, pneumatosis or portal venous gas. 2. No change in aneurysmal dilatation of visualized portions of the descending thoracic aorta since CTA of December 11, 2018, measuring up to 5.2 x 4.7 cm. 3. Healing right ischiopubic ring fractures. Electronically signed by: Randall Dahl M.D. 05/26/2019 3:12 PM XR chest 1V portable HISTORY: 84 years-old Female ams . Acutely altered mental status COMPARISON: Chest and rib radiographs and CTA chest 12/11/2018 TECHNIQUE: Portable AP view of the chest FINDINGS: Cardiac silhouette is enlarged, unchanged. Stable mediastinal widening with thoracic aortic aneurysm. Emphysema. No pneumothorax, pleural effusion, focal airspace consolidation or overt pulmonary edema. Mild chronic interstitial coarsening. Healed remote left-sided rib fractures. ORIF changes of the distal left clavicle. Mild convex left curvature of the upper thoracic spine. Demineralized appearance of the bones with degenerative changes of the shoulders and spine. IMPRESSION: Chronic findings as above without acute process. The above report was generated using voice recognition software. It may contain grammatical, syntax or spelling errors. Electronically signed by: Abhay Faust M.D. 05/26/2019 2:40 PM ECG Data Attestation: I personally reviewed and interpreted this ECG as follows: Indication: altered mental status and nausea Rate (beats per minute): 50 Rhythm: sinus bradycardia ECG [place]: Normal ECG Findings: Other (Normal QTC. No PVC.) Blood Pressure Blood Pressure Findings: Elevated blood pressure Blood Pressure Disposition: further management by hospitalist BENEDICTO Giraldo Pt is an 84 y/o female who presents to the ER following being found confused at home with nausea vomiting diarrhea. Patient was brought in by EMS. Upon presentation to be hypothermic with a temperature of 34 C. Patient was bradycardic with heart rate in the 40s to low 50s. IV was established blood work was obtained. Labs show leukocytosis of 12,000. No significant anemia. INR was unremarkable. BMP with mild hypokalemia. Lactic acid was slightly elevated at 1.8. LFTs bilirubin and lipase was unremarkable. UA was negative. Patient was given IV fluids. Placed on Skye hugger. Temperature came up to 35. She was given a dose of IV antibiotics due to the hypothermia and bradycardia. CT abdomen pelvis shows an enteritis. She was updated bedside. CT head was negative. Chest x-ray without any focal infiltrate. Patient was updated and admitted to the hospital for further work-up. Impression & Plan Hypothermia, Altered mental status, Weakness, Leukocytosis, Elevated lactic acid level Discharge Plan Visit Data *Final* Discharge Date/Time: 05/26/19 16:46 Chief Complaint: Nausea ED Provider: Gigi Shirley Discharge Problem: Hypothermia, Altered mental status, Weakness, Leukocytosis, Elevated lactic acid level Patient Disposition: Admitted As Inpatient Discharge Instructions Interventions: ED Discharge Assessment Last Done: 05/26/19 16:46 Discharge Problem: Hypothermia Qualifiers: Encounter type: initial encounter Qualified Code(s): T68.XXXA - Hypothermia, initial encounter Altered mental status Qualifiers: Altered mental status type: unspecified Qualified Code(s): R41.82 - Altered mental status, unspecified Leukocytosis Qualifiers: Leukocytosis type: unspecified Qualified Code(s): D72.829 - Elevated white blood cell count, unspecified The mary joibe's documentation has been prepared under my direction and personally reviewed by me in its entirety. I confirm that the note above accurately reflects all work, treatment, procedures, and medical decision making performed by me.
[2019-05-26] MEDS: PIPERACILLIN/TAZOBACTAM 3.375 GM in DEXTROSE 5% 100 ML IV SCH (20:40)
[2019-05-26] MEDS: MEMANTINE HCL 10 MG TAB PO SCH (22:23)
[2019-05-26] MEDS: DONEPEZIL HCL 10 MG TAB PO SCH (22:24)
[2019-05-26] MEDS: ONDANSETRON INJ 2 MG/ML 2 ML VIAL IV PRN (23:50)
[2019-05-27] MEDS: HEPARIN SOD 5,000 UNIT/0.5 ML VIAL SQ SCH ×4 (00:02→20:08)
[2019-05-27] MEDS ORDERED: PROMETHAZINE HCL 12.5 MG in SODIUM CHLORIDE 0.9% 50 ML IV STA (00:17)
[2019-05-27] MEDS: NSS + 20MEQ KCL 20 MEQ/1,000 ML BAG IV SCH ×2 (04:16→13:48)
[2019-05-27] MEDS: PIPERACILLIN/TAZOBACTAM 3.375 GM in DEXTROSE 5% 100 ML IV SCH ×3 (04:50→20:08)
[2019-05-27 06:42] LABS: Hematocrit (blood only) 35.1 % (37-47); Hemoglobin 11.4 g/dL (12.0-16.0); Mean Corpuscular Hemoglobin 29.4 pg (25-34); Mean Corpuscular Hgb Conc 32.5 g/dL (32-36); Mean Corpuscular Volume 90.5 fL (80-100); Mean Platelet Volume 9.2 fL (7.4-10.4); Platelet Count 252 K/uL (130-400); RDW Coefficient of Variation 14.7 % (11.5-14.5); RDW Standard Deviation 48.2 fL (36.4-46.3); Red Blood Count 3.88 M/uL (4.2-5.4); White Blood Count 10.66 K/uL (4.8-10.8)
[2019-05-27 07:10] LABS: Albumin Level 3.3 gm/dl (3.4-5.0); BUN Creatinine Ratio 13.8 (10-20); Bilirubin Direct 0.2 mg/dl (0-0.2); Calcium 8.8 mg/dl (8.5-10.1); Creatinine Clr Calc Pharmacy 40.5 ml/min; Est GFR (African American) 90.9; Est GFR (Non-African American) 78.5; Magnesium 1.8 mg/dl (1.8-2.4); Potassium 3.7 mmol/L (3.5-5.1)
[2019-05-27 07:16] LABS: Albumin Globulin Ratio 1.1 (0.9-2); Bilirubin,Total 0.6 mg/dl (0.2-1); Globulin 3.1 gm/dl (2.5-4.0); Total Protein 6.4 gm/dl (6.4-8.2)
[2019-05-27] MEDS: ASPIRIN 81 MG ECTAB PO SCH (09:35)
[2019-05-27] MEDS: MEMANTINE HCL 10 MG TAB PO SCH ×2 (09:36→20:07)
[2019-05-27] MEDS: FAMOTIDINE 20 MG in SYRINGE 3 ML IV SCH (09:37)
[2019-05-27] MEDS: SERTRALINE HCL 50 MG TABLET PO SCH (09:38)
--- NOTE | 2019-05-27 17:51 | Hospitalist Progress Note ---
Date of Service May 27, 2019 Assessment & Plan (1) Colitis: At time of ER presentation she had a CT scan of abd/pelvis due to symptoms of nausea/emesis/diarrhea. CT with mesenteric infiltration. Infiltration due to ?colitis. No clinical evidence of such today on exam or by symptoms. All presenting symptoms including diarrhea are resolved. C diff is neg. Stool cx is neg but suspect it will be neg. Will check a troponin in the am to ensure that the presenting GI complaints were not from a non-GI source (cardiac, etc). Cont supportive care. If blood cx's are neg come tomorrow then d/c IV zosyn. (2) Acute metabolic encephalopathy: 2nd to colitis? other intra-abdominal process? encephalopathy resolved. (3) Hypothermia: resolved. due to SIRS/sepsis? most recent TSH wnl. thus far all cultures are negative. (4) Nausea vomiting and diarrhea: viral gastroenteritis? other? all symptoms resolved (5) COPD (chronic obstructive pulmonary disease): no exacerbation at this time (6) Dementia: Continue home medications including namenda and aricept (7) Hypertension: bradycardia is now resolved. bradycardia was likely due to hypothermia. can resume atenolol at this time. (8) Severe protein-calorie malnutrition: 20+ pounds of weight loss over last 6-12 months. BMI 16. cause? CT abd/pelvis w/o specific cause. TSH wnl. consider outpatient EGD/colonoscopy if patient desires. (9) Chronic kidney disease, stage 3a: creatinine stable today. d/c fluids. (10) DVT prophylaxis: heparin SC PT/OT evals left message for family on voicemail 05/27/19 Subjective tele stable overnight. patient reports no complaints. staff report no issues today. tolerating heart healthy diet. no abd pain, nausea, vomiting, or diarrhea. had small stool - not liquid - no blood/mucous. patient states her worst issue is that of her pelvic fracture - suffered several weeks ago. Review of Systems Constitutional: + weight loss (minimum 20 pounds over last year by history ); no fever, no chills, no fatigue and no anorexia Respiratory: no cough and no dyspnea Cardiovascular: no chest pain Gastrointestinal: no abdominal pain Physical Exam Constitutional: + thin and + altered mental status (thought it was 1919); no acute distress ENMT: external ear and nose normal, oropharynx normal Respiratory: normal respiratory effort, lungs clear to auscultation Cardiovascular: Rate/Rhythm: regular rate and regular rhythm Heart Sounds: normal S2 Vessels: posterior tibial pulses present and dorsalis pedis pulses present; no JVD Extremities: no edema Gastrointestinal (Abdomen): normal bowel sounds, soft, nontender, no hepatosplenomegaly Psychiatric: Orientation: alert, oriented to person and oriented to place; + not oriented to time Results & Data Vital Signs (Past 12 Hours) Vital Signs Temp Pulse Resp BP Pulse Ox 05/27/19 15:58 36.8 C 73 17 176/95 H 98 05/27/19 11:18 36.6 C 75 18 161/94 H 97 05/27/19 07:02 36.9 C 70 18 170/88 H 97 Laboratory Results Laboratory Results - last 24 hr 05/27/19 05/27/19 05/27/19 06:24 06:24 06:24 WBC 10.66 RBC 3.88 L Hgb 11.4 L Hct 35.1 L MCV 90.5 MCH 29.4 MCHC 32.5 RDW Std Deviation 48.2 H RDW Coeff of Jovani 14.7 H Plt Count 252 MPV 9.2 Sodium 142 Potassium 3.7 Chloride 110 H Carbon Dioxide 25 Anion Gap 7.0 BUN 10 D Creatinine 0.70 Est Cr Clr Drug Dosing 40.5 Est GFR ( Amer) 90.9 Est GFR (Non-Af Amer) 78.5 BUN/Creatinine Ratio 13.8 Glucose 97 Lactate 1.2 Calcium 8.8 Magnesium 1.8 Total Bilirubin 0.6 Direct Bilirubin 0.2 AST 16 ALT 17 Alkaline Phosphatase 78 Total Protein 6.4 Albumin 3.3 L Globulin 3.1 Albumin/Globulin Ratio 1.1 Stl C. diff Tox B Gene 05/27/19 14:30 WBC RBC Hgb Hct MCV MCH MCHC RDW Std Deviation RDW Coeff of Jovani Plt Count MPV Sodium Potassium Chloride Carbon Dioxide Anion Gap BUN Creatinine Est Cr Clr Drug Dosing Est GFR ( Amer) Est GFR (Non-Af Amer) BUN/Creatinine Ratio Glucose Lactate Calcium Magnesium Total Bilirubin Direct Bilirubin AST ALT Alkaline Phosphatase Total Protein Albumin Globulin Albumin/Globulin Ratio Stl C. diff Tox B Gene Negative Cdiff Gene PG Care Time/CCT Total # of Minutes Spent Total Time Spent with Patient: Total time spent is greater than 50% in coordination of care (as documented) at patient's floor/unit and/or counseling patient: (1) Dementia Dementia type: unspecified type Dementia behavioral disturbance: without b ehavioral disturbance Qualified Code(s): F03.90 - Unspecified dementia without behavioral disturbance (2) Hypothermia Encounter type: subsequent encounter Qualified Code(s): T68.XXXD - Hypothermia, subsequent encounter (3) COPD (chronic obstructive pulmonary disease) COPD type: unspecified COPD Qualified Code(s): J44.9 - Chronic obstructive pulmonary disease, unspecified (4) Hypertension Hypertension type: essential hypertension Qualified Code(s): I10 - Essential (primary) hypertension
--- NOTE | 2019-05-27 17:58 | Consultation Report ---
DATE OF CONSULTATION: 05/27/2019 GASTROINTESTINAL CONSULT NOTE REASON FOR EVALUATION: Diarrhea, nausea, and vomiting. HISTORY OF PRESENT ILLNESS: The patient is an 84-year-old woman who lives in an apartment by herself, who was doing pretty well until last evening when she had the acute onset of nausea, vomiting, and diarrhea. She got a little bit lightheaded and confused, hypothermic and a little hypotensive and was brought to the Emergency Room where she was admitted. She had stool cultures sent and was given some IV fluids and a dose of IV Zosyn. CT scan was performed and showed some mesenteric infiltration but no signs of mass or adenopathy. Colon showed diverticulosis. Currently, the patient is sitting in bed, eating meat and potatoes and is complaining of no abdominal pain, nausea, vomiting, or diarrhea. Her stool cultures so far are no growth. When she did arrive, her white count was elevated at 12,000. PAST MEDICAL HISTORY: Remarkable for some mild dementia, acute renal failure, hypertension. She has had a hysterectomy and in the past. MEDICATIONS: Baby aspirin, vitamin D, donepezil, sertraline, multiple vitamins, atenolol, . ALLERGIES: TRAMADOL AND HYDROCODONE. SOCIAL HISTORY: The patient is a , lives in an apartment by herself. Her family lives close by. She is a former smoker, quit about 17 years ago. No alcohol. FAMILY HISTORY: Positive for father who of alcohol abuse. Mother of cancer. Sister has diabetes and hypothyroidism. Brother has diabetes. REVIEW OF SYSTEMS: Currently is negative. PHYSICAL EXAMINATION: GENERAL: The patient appears awake, alert, in no acute distress. VITAL SIGNS: Normal. She is afebrile. ABDOMEN: Shows a low midline scar from the previous hysterectomy and . Bowel sounds are normal. There are no masses, tenderness, or hepatosplenomegaly. HEART: Shows a regular rate and rhythm without murmurs, rubs, or gallops. IMPRESSION AND PLAN: The patient presented with acute illness. It sounds like a gastroenteritis, which is quickly resolving. At this point, I would continue just supportive measures with fluid replacement and electrolyte correction and antibiotics as needed. Hopefully, she will be suitable for discharge tomorrow.
[2019-05-27] MEDS: ATENOLOL 25 MG TABLET PO SCH (19:07)
[2019-05-27] MEDS: DONEPEZIL HCL 10 MG TAB PO SCH (20:07)
[2019-05-28] MEDS: PIPERACILLIN/TAZOBACTAM 3.375 GM in DEXTROSE 5% 100 ML IV SCH ×2 (03:23→12:34)
[2019-05-28] MEDS: HEPARIN SOD 5,000 UNIT/0.5 ML VIAL SQ SCH ×3 (06:18→23:56)
[2019-05-28 06:40] LABS: BUN Creatinine Ratio 10.8 (10-20); Calcium 8.7 mg/dl (8.5-10.1); Creatinine Clr Calc Pharmacy 33.6 ml/min; Est GFR (African American) 72.9; Est GFR (Non-African American) 62.9; Potassium 3.6 mmol/L (3.5-5.1)
[2019-05-28 06:51] LABS: Troponin I 0.049 ng/ml (0-0.045)
[2019-05-28] MEDS: FAMOTIDINE 20 MG in SYRINGE 3 ML IV SCH (07:53)
[2019-05-28] MEDS: ONDANSETRON INJ 2 MG/ML 2 ML VIAL IV PRN (07:53)
[2019-05-28] MEDS: MEMANTINE HCL 10 MG TAB PO SCH ×2 (07:54→20:16)
[2019-05-28] MEDS: ASPIRIN 81 MG ECTAB PO SCH (07:54)
[2019-05-28] MEDS: SERTRALINE HCL 50 MG TABLET PO SCH (07:55)
[2019-05-28] MEDS: ATENOLOL 25 MG TABLET PO SCH (08:28)
[2019-05-28] MEDS ORDERED: PANTOprazole 40 MG TAB PO STA (12:24)
--- NOTE | 2019-05-28 16:26 | Hospitalist Progress Note ---
Date of Service May 28, 2019 Assessment & Plan (1) Colitis: At time of ER presentation she had a CT scan of abd/pelvis due to symptoms of nausea/emesis/diarrhea. CT with mesenteric infiltration. Infiltration due to ?colitis. No nausea/emesis/diarrhea since admission. Abd exam benign today. (although c/o mild dyspepsia) C diff neg. Stool cx neg to date. GI saw in consult - felt she likely had a transient gastroenteritis. Blood cx's negative to date -- stop zosyn. (2) Acute metabolic encephalopathy: 2nd to colitis? other intra-abdominal process? encephalopathy seems resolved. does have baseline dementia. (3) Hypothermia: resolved. due to SIRS/sepsis at presentation? cause...colitis? other? blood cx's negative. zosyn stopped. most recent TSH wnl. (4) Nausea vomiting and diarrhea: viral gastroenteritis? other? all symptoms resolved (5) COPD (chronic obstructive pulmonary disease): no exacerbation at this time (6) Dementia: Continue home medications including namenda and aricept (7) Hypertension: bradycardia at presentation now resolved. bradycardia was likely due to hypothermia. resumed atenolol. (8) Severe protein-calorie malnutrition: 20+ pounds of weight loss over last 6-12 months. BMI 16. cause? CT abd/pelvis w/o specific cause. TSH wnl. consider outpatient EGD/colonoscopy if patient desires. (9) Chronic kidney disease, stage 3a: creatinine stable again today. (10) Elevated troponin: troponin was not checked at time of ER presentation. suspect we are catching troponin on the "way down." will repeat in am. check echo to be complete to r/o wall motion abnormalities, etc. ultimately the troponin elevation was likely due to myocardial demand ischemia. she also has a known thoracic aortic aneurysm - we can look at aortic root on echo as well. (11) Thoracic aortic aneurysm (TAA): descending aorta, 6.7 x 4.5 cm -- 11/2018. if any chest pain, back pain, abd pain - consider dedicated CTA chest. (12) DVT prophylaxis: heparin SC PT/OT evals completed - did well, cleared for home at her [address] apartment left message for family on voicemail 05/27/19 anticipate d/c on 05/29 await echo Subjective saw pt today while she was eating lunch stated "my stomach is upset" but while saying such she was actively placing food in her mouth denied any abd pain no nausea no vomiting no chest pain or dyspnea tele - very short run of a tach Review of Systems Constitutional: no fever, no fatigue and no anorexia Respiratory: no cough and no dyspnea Cardiovascular: no chest pain Physical Exam Constitutional: + thin and + altered mental status (but mental status improved today; told me the apt complex she lives in); no acute distress ENMT: external ear and nose normal, oropharynx normal Respiratory: Auscultation: + wheezes (scant b/l) Cardiovascular: Rate/Rhythm: regular rate and regular rhythm Heart Sounds: normal S2 Vessels: posterior tibial pulses present and dorsalis pedis pulses present; no JVD Extremities: no edema Gastrointestinal (Abdomen): normal bowel sounds, soft, nontender, no hepatosplenomegaly Skin: fingernail clubbing Psychiatric: Orientation: alert, oriented to person and oriented to place; + not oriented to time Results & Data Vital Signs (Past 12 Hours) Vital Signs Temp Pulse Resp BP Pulse Ox 05/28/19 15:14 36.4 C L 60 21 149/91 H 95 05/28/19 11:45 36.6 C 53 L 18 165/97 H 97 05/28/19 07:10 36.7 C 52 L 16 154/83 H 96 Laboratory Results Laboratory Results - last 24 hr 05/28/19 05:48 Sodium 140 Potassium 3.6 Chloride 108 H Carbon Dioxide 28 Anion Gap 5.0 BUN 9 Creatinine 0.84 Est Cr Clr Drug Dosing 33.6 Est GFR ( Amer) 72.9 Est GFR (Non-Af Amer) 62.9 BUN/Creatinine Ratio 10.8 Glucose 88 Calcium 8.7 Troponin I 0.049 H* PG Care Time/CCT Total # of Minutes Spent Total Time Spent with Patient: Total time spent is greater than 50% in coordination of care (as documented) at patient's floor/unit and/or counseling patient: (1) Hypothermia Encounter type: subsequent encounter Qualified Code(s): T68.XXXD - Hypothermia, subsequent encounter (2) COPD (chronic obstructive pulmonary disease) COPD type: unspecified COPD Qualified Code(s): J44.9 - Chronic obstructive pulmonary disease, unspecified (3) Dementia Dementia type: unspecified type Dementia behavioral disturbance: without behavioral disturbance Qualified Code(s): F03.90 - Unspecified dementia without behavioral disturbance (4) Hypertension Hypertension type: essential hypertension Qualified Code(s): I10 - Essential (primary) hypertension (5) Thoracic aortic aneurysm (TAA) Presence of rupture: without rupture Qualified Code(s): I71.2 - Thoracic aortic aneurysm, without rupture
[2019-05-28] MEDS: DONEPEZIL HCL 10 MG TAB PO SCH (20:16)
[2019-05-29] MEDS: HEPARIN SOD 5,000 UNIT/0.5 ML VIAL SQ SCH (06:12)
[2019-05-29 07:09] LABS: Hemoglobin 11.4 g/dL (12.0-16.0); Mean Corpuscular Hemoglobin 29.1 pg (25-34); Mean Corpuscular Hgb Conc 31.7 g/dL (32-36); Mean Corpuscular Volume 91.8 fL (80-100); Mean Platelet Volume 9.5 fL (7.4-10.4); Platelet Count 263 K/uL (130-400); RDW Coefficient of Variation 14.7 % (11.5-14.5); RDW Standard Deviation 49.6 fL (36.4-46.3); Red Blood Count 3.92 M/uL (4.2-5.4); White Blood Count 10.61 K/uL (4.8-10.8)
[2019-05-29 07:42] LABS: Creatinine Clr Calc Pharmacy 38.1 ml/min; Est GFR (African American) 91.4; Est GFR (Non-African American) 78.8
[2019-05-29 07:47] LABS: Troponin I 0.031 ng/ml (0-0.045)
[2019-05-29] MEDS: ASPIRIN 81 MG ECTAB PO SCH (08:01)
[2019-05-29] MEDS: MEMANTINE HCL 10 MG TAB PO SCH (08:01)
[2019-05-29] MEDS: SERTRALINE HCL 50 MG TABLET PO SCH (08:01)
[2019-05-29] MEDS: ATENOLOL 25 MG TABLET PO SCH (08:45)
--- NOTE | 2019-05-29 17:48 | Discharge Summary ---
Date of Service May 29, 2019 Admission HPI Per Admitting Provider The patient is 84-year-old female who presented to the ER with complaints of nausea, vomiting and diarrhea. Her symptoms started this morning approximately 10 AM. When her caregiver arrived, the patient was found to be cold and clammy and had decreased mental status. The patient denies any blood in the stools. No fever. The further work-up done in the ER shows that the patient had hypothermia on arrival and she was put on vishal hugger. She started on IV antibiotics for possible colitis. She has dehydration and has been started on IV fluids. She will be admitted for further evaluation and management. Her son-in-law is present at the bedside and CODE STATUS was discussed and patient is a full code. Principal Diagnosis Viral gastroenteritis Discharge Exam Constitutional + thin and + altered mental status (but mental status improved today; told me the apt complex she lives in); no acute distress ENMT external ear and nose normal, oropharynx normal Respiratory normal respiratory effort, lungs clear to auscultation Auscultation: + wheezes (scant b/l) Cardiovascular Rate/Rhythm: regular rate and regular rhythm Heart Sounds: normal S2 Vessels: posterior tibial pulses present and dorsalis pedis pulses present; no JVD Extremities: no edema Gastrointestinal (Abdomen) normal bowel sounds, soft, nontender, no hepatosplenomegaly Psychiatric Orientation: alert, oriented to person and oriented to place; + not oriented to time Discharge Data Allergies Allergy/AdvReac Type Severity Reaction Status Date / Time hydrocodone [From [place]] Allergy Hallucinati Verified 05/26/19 15:00 ng tramadol Allergy Hallucinati Verified 05/26/19 15:00 ng Consultations 05/26/19 15:13 ED Decision to Admit Stat 05/26/19 17:04 Consult Gastroenterology Routine Ordered Studies 05/26/19 14:08 CT abd pelvis IV con only Stat CT head/brain wo con Stat Hospital Course (1) Colitis: At time of ER presentation she had a CT scan of abd/pelvis due to symptoms of nausea/emesis/diarrhea. CT with mesenteric infiltration. Infiltration due to ?colitis. No nausea/emesis/diarrhea since admission. Abd exam benign today. (although c/o mild dyspepsia) C diff neg. Stool cx neg to date. GI saw in consult - felt she likely had a transient gastroenteritis. Blood cx's negative to date -- stop zosyn. (2) Acute metabolic encephalopathy: 2nd to colitis? other intra-abdominal process? encephalopathy seems resolved. does have baseline dementia. (3) Hypothermia: resolved. due to SIRS/sepsis at presentation? cause...colitis? other? blood cx's negative. zosyn stopped. most recent TSH wnl. (4) Nausea vomiting and diarrhea: viral gastroenteritis? other? all symptoms resolved (5) COPD (chronic obstructive pulmonary disease): no exacerbation at this time (6) Dementia: Continue home medications including namenda and aricept (7) Hypertension: bradycardia at presentation now resolved. bradycardia was likely due to hypothermia. resumed atenolol. (8) Severe protein-calorie malnutrition: 20+ pounds of weight loss over last 6-12 months. BMI 16. cause? CT abd/pelvis w/o specific cause. TSH wnl. consider outpatient EGD/colonoscopy if patient desires. (9) Chronic kidney disease, stage 3a: creatinine stable again today. (10) Elevated troponin: troponin was not checked at time of ER presentation. suspect we are catching troponin on the "way down." will repeat in am. check echo to be complete to r/o wall motion abnormalities, etc. ultimately the troponin elevation was likely due to myocardial demand ischemia. she also has a known thoracic aortic aneurysm - we can look at aortic root on echo as well. (11) Thoracic aortic aneurysm (TAA): descending aorta, 6.7 x 4.5 cm -- 11/2018. if any chest pain, back pain, abd pain - consider dedicated CTA chest. (12) DVT prophylaxis: heparin SC PT/OT jamarcus completed - did well, cleared for home at her [employer] apartment left message for family on voicemail 05/27/19 anticipate d/c on 05/29 await echo Total Time Total Time Spent Total Time Spent (In Minutes): 35 Discharge Plan Discharge Items Patient Disposition: Home - Home Health Services Reason For Visit: NAUSEA,VOMITING,DIARRHEA Discharge Diagnosis: Nausea, vomiting, viral gastroenteritis (stomach bug) Activity: Resume your previous activity Non-emergency contact: Primary Care Provider Call non-emergency contact if: your symptoms worsen and your temperature is above 101 Follow-up/Referrals: Issac Pimentel MD [Primary Care Provider] - (Please see in a week or so to be sure you're doing well.) Diet: Regular Addtl Attending Provider Instructions: You were admitted for nausea, vomiting, and abdominal pain. We saw a mild irritation of your colon (large intestine) for a virus. We started you on antibiotics; however, we stopped them after your symptoms improved quickly. We think that this was a viral stomach bug which the body is able to deal with without any additional medications. By your day of discharge, you felt perfectly well. Your nausea, vomiting, and stomach pain had all gone away. You still had a looser stool, but this can even be caused by antibiotics. If you have any more diarrhea, take some Imodium that you can purchase at any pharmacy. Sometimes sertraline can cause diarrhea, though usually this improves with time. This does not appear to be a new medication for you, so it is less likely to be the cause. However, if the diarrhea continues, consider talking with your neurologist about changing this medication. Please see your PCP this coming week to be sure you're still improving and feeling well. Pending Studies at Discharge: No Stand-Alone Forms: My [facility] [place], Smoking Cessation Medications and DC Order Prescriptions: Continued memantine 10 mg tablet 10 mg PO BID 30 Days Qty: 60 RF: 5 atenolol 50 mg tablet 25 mg PO DAILY RF: 0 donepezil 10 mg tablet 10 mg PO HS RF: 0 aspirin [Aspirin Low Dose] 81 mg Tablet,Delayed Release (Dr/Ec) 81 mg PO DAILY RF: 0 sertraline 25 mg Tablet 25 mg PO DAILY RF: 0 Ocuvite with Lutein 1,000 unit-200 mg-60 unit-2 mg Tablet 1 tab PO DAILY RF: 0 cholecalciferol (vitamin D3) [Vitamin D3] 2,000 unit Capsule 2,000 unit PO DAILY RF: 0 Discharge Orders: Discharge Order (Routine); Ordered 05/29/19 Ordered By: Gerry Mejia/Other Patient Handouts: ED Gastroenteritis Viral Admission Data Admit Date/Time: 05/26/19 15:58 Attending Provider: Gerry Wilkins Admit Provider: Luis Enrique Haider Primary Care Provider: Issac Pimentel V. Other Providers: Сергей Mendez ; [facility] ; Wilkins,Gerry J. Other Interventions: Discharge Summary Assessment (RN) Last Done: 05/29/19 11:39 DC Date/Time DO NOT enter until pt leaves facility: 05/29/19 14:02
== END 2019-05-29 14:02 | disposition home health service (06) | DRG 391 ==
LOC: ED 12:52 → SUATTDRO 15:58 → 2E 15:58

== ENCOUNTER 2019-12-28 08:03 | Observation (INO) ==
[2019-12-28 08:45] LABS: Basophils % (auto) 1.1 %; Eosinophils # (auto) 0.11 K/uL (0-0.5); Eosinophils % (auto) 1.2 %; Hematocrit (blood only) 35.2 % (37-47); Hemoglobin 10.8 g/dL (12.0-16.0); Immature Granulocytes # (auto) 0.01 K/uL (0.00-0.02); Immature Granulocytes % (auto) 0.1 %; Lymphocytes # (auto) 1.02 K/uL (1.2-3.4); Lymphocytes % (auto) 11.2 %; Mean Corpuscular Hemoglobin 28.1 pg (25-34); Mean Corpuscular Hgb Conc 30.7 g/dL (32-36); Mean Corpuscular Volume 91.4 fL (80-100); Mean Platelet Volume 9.1 fL (7.4-10.4); Monocytes # (auto) 0.66 K/uL (0.11-0.59); Monocytes % (auto) 7.2 %; Neutrophils # (auto) 7.22 K/uL (1.4-6.5); Neutrophils % (auto) 79.2 %; Platelet Count 273 K/uL (130-400); RDW Coefficient of Variation 14.4 % (11.5-14.5); RDW Standard Deviation 48.4 fL (36.4-46.3); Red Blood Count 3.85 M/uL (4.2-5.4); White Blood Count 9.12 K/uL (4.8-10.8)
[2019-12-28 08:55] LABS: INR 1.1 (0.9-1.1); Partial Thromboplastin Ratio 0.8; Partial Thromboplastin Time 23.6 Seconds (21.0-31.0); Prothrombin Time 11.3 Seconds (9.0-12.0)
--- NOTE | 2019-12-28 09:00 | Emergency Department Note ---
History of Present Illness General Chief complaint: Illness Stated complaint: ILLNESS Time Seen by Provider: 12/28/19 08:09 Source: patient, RN notes reviewed and old records reviewed Mode of arrival: ambulatory Limitations: no limitations History of Present Illness Provider complaint: Rectal bleed Onset (ago): day(s) 1 Current Pain Intensity: 0 Exacerbated By: + other (diarrhea) Associated symptoms: + weakness and + other (diarrhea) Treatments prior to arrival: none This is an 84-year-old female who presents to the emergency department complaining of rectal bleed. The patient reports she has had diarrhea for a month and last evening began having at least 3 bloody bowel movements. She is also complaining of feeling weak. She denies any fevers chills shortness of breath. She denies any exposure to coronavirus. Home Medications Home Medications Medication Instructions Recorded Confirmed Type Ocuvite with Lutein 1 tab PO DAILY 12/11/18 12/28/19 History aspirin [Aspirin Low Dose] 81 mg PO DAILY 12/11/18 12/28/19 History cholecalciferol (vitamin D3) 2,000 unit PO DAILY 12/11/18 12/28/19 History [Vitamin D3] atenolol 50 mg tablet 25 mg PO DAILY tab 02/05/19 12/28/19 History sertraline 25 mg tablet 25 mg PO DAILY #90 tab 06/28/19 12/28/19 Rx pantoprazole 40 mg tablet,delayed 40 mg PO DAILY #90 tab 08/20/19 12/28/19 Rx release donepezil 5 mg tablet 5 mg PO DAILY #30 tab 08/25/19 12/28/19 Rx memantine 21 mg capsule 21 mg PO DAILY #30 ea 08/25/19 12/28/19 Rx sprinkle,extended release 24hr Allergies Allergy/AdvReac Type Severity Reaction Status Date / Time hydrocodone [From [place]] Allergy Hallucinati Verified 12/28/19 08:49 ng tramadol Allergy Hallucinati Verified 12/28/19 08:49 ng Past Med/Surg History Medical History Acute metabolic encephalopathy Altered mental status (Inactive) ARF (acute renal failure) (Acute) Chronic kidney disease, stage 3a Dementia History of fracture of clavicle (Inactive) HTN (hypertension) (Chronic) Hypothermia (Inactive) Hypoxia Pelvic fracture (Inactive) Surgical History History of section History of hysterectomy S/P hysterectomy Family History Mother Cancer Father Alcohol abuse Sister Diabetes Hypothyroidism Brother Diabetes Social History Preferred Language: Turkmen Communication Ability: Effective Human Services Worker Required: No Beliefs That Will Affect Care: None marital status: / Current Living Situation: Alone Other Information That Helps Us Care for You: No Feels Safe at Home: Yes Safety Concerns: Feels Safe At This Time Smoking Status: Former smoker Do You Dip or Chew Tobacco: No ; Hx Alcohol Use: No Hx Substance Use: No Physical Activity Frequency: Daily Seatbelt Use: always Review of Systems A total of 10 systems reviewed and were otherwise negative Physical Exam Vital Signs Vital Signs - 24 hr 12/28/19 08:05 12/28/19 08:16 Temperature 36.7 C Temperature Source Oral Pulse Rate 100 H Respiratory Rate 20 Blood Pressure 111/67 Blood Pressure Mean 81 Pulse Oximetry 98 Oxygen Delivery Method Room Air Room Air Sepsis Recent Fever Within 48 Hours No Sepsis New/Unexplained Change in Mental Status No Sepsis Action Taken by Nursing No Action Required VITAL SIGNS - Vital signs and nursing notes were reviewed. GENERAL - 84-year-old male appearing stated age who is in no acute distress. Communicates well with provider and answers questions appropriately. SKIN - Without rashes. HEAD - NC/AT. EYES - PERRL with EOMI bilaterally. Sclera anicteric. Palpebral conjunctiva pink and moist with no injection noted. EARS - No deformities of external structures noted on gross examination bilaterally. No pain elicited with palpation of the tragus bilaterally. External auditory canals without discharge or otorrhea. Tympanic membranes pearly miles without retraction or bulging. No fluid or purulent material visualized behind the TM. Handle of malleus, umbo, cone of light, pars tensa/flaccid all easily visualized. NOSE - Midline and without cyanosis. No epistaxis or purulent drainage noted. Septum midline without deviation or septal hematoma noted. MOUTH/OROPHARYNX - Without perioral cyanosis. Buccal mucosa pink and moist and without leukoplakia. Tongue midline with equal elevation of palate bilaterally. No tonsillar hypertrophy, erythema, or exudates noted. dentition noted. NECK - Neck with FROM. Supple to palpation. lymphadenopathy noted. No nuchal rigidity. LUNGS - Chest wall symmetric without accessory muscle use, intercostals retractions, or central cyanosis. Normal vesicular breath sounds CTA B/L. No wheezes, rales, or rhonchi appreciated. CARDIAC - RRR with S1/S2. No murmur, rubs, or gallops appreciated. ABDOMEN - Abdominal contour without pulsations or visible masses. BS normoactive all four quadrants. No tenderness, palpable masses, hepatosplenomegaly, or ascites noted. EXTREMITIES - No clubbing or peripheral cyanosis. No pretibial edema present. +3/5 radial, posterior tibial, and dorsalis pedis pulses palpated throughout. +5/5 strength noted in UE/LE bilaterally. NEUROLOGIC - Cranial nerves II through XII grossly intact. Sensory intact to light touch throughout. Patellar reflexes +2/4. PSYCH - A&Ox3 and cooperates fully with examiner. Pt is very pleasant and interacts well with examiner. Course Administered Medications Atenolol (Tenormin) 25 mg PO DAILY SHAHANA Stop: 01/28/20 08:59 Last Admin: 12/29/19 08:20 Dose: 25 mg Documented by: [id number] Donepezil HCl (Aricept) 5 mg PO DAILY SHAHANA Stop: 01/28/20 08:59 Last Admin: 12/29/19 08:19 Dose: 5 mg Documented by: [id number] Pantoprazole Sodium 40 mg/ (Syringe) 10 mls @ 5 mls/min IV BID SHAHANA Stop: 01/27/20 12:29 Last Admin: 12/29/19 21:02 Dose: 5 mls/min Documented by: [id number] Admin: 12/29/19 08:37 Dose: 5 mls/min Documented by: [id number] Admin: 12/28/19 20:21 Dose: 5 mls/min Documented by: [id number] Admin: 12/28/19 13:42 Dose: 5 mls/min Documented by: [id number] Ioversol (Optiray 320 100ml) 95 ml IV ONCE PRN PRN Reason: Interaction Checking Stop: 01/02/20 15:51 Last Admin: 12/29/19 15:53 Dose: 95 ml Documented by: [id number] Memantine (Namenda) 7.5 mg PO BID SHAHANA Stop: 01/27/20 12:29 Last Admin: 12/29/19 21:02 Dose: 7.5 mg Documented by: [id number] Admin: 12/29/19 08:18 Dose: 7.5 mg Documented by: [id number] Admin: 12/28/19 20:22 Dose: 7.5 mg Documented by: [id number] Admin: 12/28/19 13:46 Dose: 7.5 mg Documented by: [id number] Multivitamins/Minerals (Multivitamin W/ Minerals Tab) 1 tab PO DAILY SHAHANA Stop: 01/28/20 08:59 Last Admin: 12/29/19 08:20 Dose: 1 tab Documented by: [id number] Ondansetron HCl (Zofran) 4 mg IV Q6H PRN PRN Reason: Nausea Stop: 01/27/20 11:43 Last Admin: 12/29/19 11:12 Dose: 4 mg Documented by: [id number] Sertraline HCl (Zoloft) 25 mg PO DAILY SHAHANA Stop: 01/28/20 08:59 Last Admin: 12/29/19 08:21 Dose: 25 mg Documented by: [id number] Discontinued Medications Sodium Chloride (Nss 1000ml) 1,000 mls @ 100 mls/hr IV .Q10H SHAHANA Stop: 12/28/19 21:43 Last Infusion: 12/28/19 23:58 Dose: 0 mls/hr Documented by: [id number] Admin: 12/28/19 13:42 Dose: 100 mls/hr Documented by: [id number] Medical Decision Making Differential Diagnosis Appendicitis, TOA, PID, infections, diverticulitis, UTI, obstruction, mesenteric ischemia, aortic pathology, inflammatory bowel disease, renal colic, PUD, pancreatitis, biliary pathology, hernia, volvulus, constipation, as well as other pathologies. Medical Records Attestation: I reviewed the patient's medical records. Home Medications Current Medication List: was personally reviewed by me Laboratory Data Attestation: I reviewed the patient's lab results. Result diagrams: 12/30/19 06:14 12/30/19 06:14 Lab Results 12/28/19 12/28/19 12/28/19 Range/Units 08:32 08:32 08:32 WBC 9.12 (4.8-10.8) K/uL RBC 3.85 L (4.2-5.4) M/uL Hgb 10.8 L (12.0-16.0) g/dL POC Hgb (12.0-16.0) g/dl Hct 35.2 L (37-47) % POC Hct (37-47) % MCV 91.4 (80-100) fL MCH 28.1 (25-34) pg MCHC 30.7 L (32-36) g/dL RDW Std Deviation 48.4 H (36.4-46.3) fL RDW Coeff of Jovani 14.4 (11.5-14.5) % Plt Count 273 (130-400) K/uL MPV 9.1 (7.4-10.4) fL Immature Gran % (Auto) 0.1 % Neut % (Auto) 79.2 % Lymph % (Auto) 11.2 % Weld % (Auto) 7.2 % Eos % (Auto) 1.2 % Baso % (Auto) 1.1 % Immature Gran # (Auto) 0.01 (0.00-0.02) K/uL Neut # (Auto) 7.22 H (1.4-6.5) K/uL Lymph # (Auto) 1.02 L (1.2-3.4) K/uL Weld # (Auto) 0.66 H (0.11-0.59) K/uL Eos # (Auto) 0.11 (0-0.5) K/uL Baso # (Auto) 0.10 (0-0.2) K/uL PT 11.3 (9.0-12.0) Seconds INR 1.1 (0.9-1.1) APTT 23.6 (21.0-31.0) Seconds PTT Ratio 0.8 POC Sodium (135-144) mmol/L Sodium (136-145) mmol/L POC Potassium (3.3-5.0) mmol/L Potassium (3.5-5.1) mmol/L POC Chloride (101-112) mmol/L Chloride (98-107) mmol/L Carbon Dioxide (21-32) mmol/L POC Total CO2 (24-31) mmol/L Anion Gap (3-11) POC Anion Gap (16-25) mmol/L POC BUN (7-18) mg/dl BUN (7-18) mg/dl Creatinine (0.6-1.2) mg/dl POC Creatinine (0.6-1.3) mg/dl Est Cr Clr Drug Dosing Est GFR ( Amer) Est GFR (Non-Af Amer) BUN/Creatinine Ratio (10-20) Glucose (70-99) mg/dl POC Glucose (other) (70-99) mg/dl Calcium (8.5-10.1) mg/dl POC Ioniz Calcium Franklyn (1.12-1.32) mmol/l Total Bilirubin (0.2-1) mg/dl AST (15-37) U/L ALT (12-78) U/L Alkaline Phosphatase (45-117) U/L Total Creatine Kinase (26-192) U/L CK-MB (CK-2) (0.5-3.6) ng/ml CK/CKMB % Calc (0-3.0) Troponin I (0-0.045) ng/ml Total Protein (6.4-8.2) gm/dl Albumin (3.4-5.0) gm/dl Globulin (2.5-4.0) gm/dl Albumin/Globulin Ratio (0.9-2) Blood Type O Negative Antibody Screen POSITIVE A Antibody Identification Anti-C Antibody ID Comment Antigen Identification C Antigen - NEGATIVE 12/28/19 12/28/19 Range/Units 08:32 08:40 WBC (4.8-10.8) K/uL RBC (4.2-5.4) M/uL Hgb (12.0-16.0) g/dL POC Hgb 10.9 L (12.0-16.0) g/dl Hct (37-47) % POC Hct 32 L (37-47) % MCV (80-100) fL MCH (25-34) pg MCHC (32-36) g/dL RDW Std Deviation (36.4-46.3) fL RDW Coeff of Jovani (11.5-14.5) % Plt Count (130-400) K/uL MPV (7.4-10.4) fL Immature Gran % (Auto) % Neut % (Auto) % Lymph % (Auto) % Weld % (Auto) % Eos % (Auto) % Baso % (Auto) % Immature Gran # (Auto) (0.00-0.02) K/uL Neut # (Auto) (1.4-6.5) K/uL Lymph # (Auto) (1.2-3.4) K/uL Weld # (Auto) (0.11-0.59) K/uL Eos # (Auto) (0-0.5) K/uL Baso # (Auto) (0-0.2) K/uL PT (9.0-12.0) Seconds INR (0.9-1.1) APTT (21.0-31.0) Seconds PTT Ratio POC Sodium 141 (135-144) mmol/L Sodium 141 (136-145) mmol/L POC Potassium 4.4 (3.3-5.0) mmol/L Potassium 4.7 (3.5-5.1) mmol/L POC Chloride 105 (101-112) mmol/L Chloride 109 H (98-107) mmol/L Carbon Dioxide 25 (21-32) mmol/L POC Total CO2 24 (24-31) mmol/L Anion Gap 7.0 (3-11) POC Anion Gap 17.0 (16-25) mmol/L POC BUN 21 H (7-18) mg/dl BUN 21 H (7-18) mg/dl Creatinine 0.99 (0.6-1.2) mg/dl POC Creatinine 0.9 (0.6-1.3) mg/dl Est Cr Clr Drug Dosing Not Reportable Est GFR ( Amer) 59.8 Est GFR (Non-Af Amer) 51.6 BUN/Creatinine Ratio 21.1 H (10-20) Glucose 114 H (70-99) mg/dl POC Glucose (other) 122 H (70-99) mg/dl Calcium 9.2 (8.5-10.1) mg/dl POC Ioniz Calcium Franklyn 1.22 (1.12-1.32) mmol/l Total Bilirubin 0.4 (0.2-1) mg/dl AST 12 L (15-37) U/L ALT 16 (12-78) U/L Alkaline Phosphatase 65 (45-117) U/L Total Creatine Kinase 30 (26-192) U/L CK-MB (CK-2) 1.0 (0.5-3.6) ng/ml CK/CKMB % Calc 3.3 H (0-3.0) Troponin I < 0.015 (0-0.045) ng/ml Total Protein 6.4 (6.4-8.2) gm/dl Albumin 3.4 (3.4-5.0) gm/dl Globulin 3.0 (2.5-4.0) gm/dl Albumin/Globulin Ratio 1.1 (0.9-2) Blood Type Antibody Screen Antibody Identification Antibody ID Comment Antigen Identification Imaging Data Radiologist's Impression: [place], [place] [phone] CT Scan Report Patient: LORRAINE MCMULLEN IAdmit Date: 12/28/19 MR#: [id number]: [id number] [facility] [address] Acct ID:[id number]: Date: 1935ity Zip: [place] [address] Age: 84Location: 2S Sex: F Room/Bed: [facility] Att Phy: Norm Perrin MDDiagnosis: HEMATOCHEZIA Denise Phy: RV. Diane, MDService Date: 12/29/19 Fam Phy:Interpreting Phy: Tony Campo MD Admit Phy: Norm Perrin MD Ordering Phy: Soila Reyes PA-C cc: ~ CT abd pelvis IV con only CT DOSE: 209.28 mGy.cm HISTORY: GI bleed TECHNIQUE: Multiaxial CT images of the abdomen and pelvis were performed following the use of intravenous contrast. A dose lowering technique was utilized adhering to the principles of ALARA. COMPARISON STUDY: 05/26/2019 FINDINGS: Chronic parenchymal scarring right to a lesser extent left base. Aneurysmal dilatation low thoracic aorta unchanged. The liver spleen and pancreas enhance uniformly. Bilateral renal cysts are present as are considered stable and unchanged. The bowel pattern is considered nonobstructive. There are findings of chronic colonic diverticulosis. There is no evidence for acute diverticulitis. IMPRESSION: 1. Chronic colonic diverticulosis. 2. No evidence for diverticulitis. 3. Stable bilateral renal cysts. 4. Stable aneurysmal distention low thoracic aorta. ACT 112: Negative or not required by law. The above report was generated using voice recognition software. It may contain grammatical, syntax or spelling errors. Electronically signed by: Tony Campo M.D. 12/29/2019 4:06 PM Dictated: 12/29/19 1601 Transcribed: 12/29/19 1601 ECG Data Attestation: I personally reviewed and interpreted this ECG as follows: Indication: + other (GI bleed) Rate (beats per minute): 78 Rhythm: + normal sinus ECG Intervals/blocks: + Normal QT-c (444) ECG [place]: + Normal ECG ST segments: no ST depression and no ST elevation Comparison ECG Date: from (05/26/2019) Change: the following changes noted (Vent rate increased by 28 ) MDM Narrative This is a 84-year-old female with a history of dementia who comes to the emergency department complaining of 3 bloody bowel movements. Patient is heme positive on rectal examination. Because of the patient's past medical history multiple comorbidities I did discuss the case with the hospitalist service. She has dropped her hemoglobin by 1 unit. Patient and family are in agreement with the treatment plan. Patient was seen and evaluated as above in room A10. Review was performed of nursing notes and vital signs. I did review pertinent previous visits and patient history. After obtaining a thorough history and physical examination the above work up was performed. An order was placed for continuous cardiac monitoring. The monitor shows a rate of 56 with Normal SInus rhythm. The patient was evaluated during the global COVID-19 pandemic, and that diagnosis was suspected/considered upon their initial presentation. Their evaluation, treatment and testing was consistent with current guidelines for patients who present with complaints or symptoms that may be related to COVID- 19. Impression & Plan Hematochezia, Fecal incontinence, Dementia Discharge Plan Visit Data *Final* Discharge Date/Time: 12/28/19 10:07 Chief Complaint: Illness Stated Complaint: ILLNESS ED Provider: Zion Ramos Discharge Problem: Hematochezia, Fecal incontinence, Dementia Patient Disposition: Admitted As Inpatient Discharge Instructions Interventions: ED Discharge Assessment Last Done: 12/28/19 10:07 Discharge Problem: Fecal incontinence Qualifiers: Fecal incontinence type: unspecified Qualified Code(s): R15.9 - Full incontinence of feces Dementia Qualifiers: Dementia type: unspecified type Dementia behavioral disturbance: without behavioral disturbance Qualified Code(s): F03.90 - Unspecified dementia without behavioral disturbance
[2019-12-28 09:01] LABS: Alanine Aminotransferase 16 U/L (12-78); Albumin Level 3.4 gm/dl (3.4-5.0); Aspartate Aminotransferase 12 U/L (15-37); BUN Creatinine Ratio 21.1 (10-20); Blood Urea Nitrogen 21 mg/dl (7-18); Calcium 9.2 mg/dl (8.5-10.1); Carbon Dioxide 25 mmol/L (21-32); Chloride 109 mmol/L (98-107); Est GFR (African American) 59.8; Est GFR (Non-African American) 51.6; Glucose 114 mg/dl (70-99); Potassium 4.7 mmol/L (3.5-5.1); Sodium 141 mmol/L (136-145)
[2019-12-28 09:06] LABS: Albumin Globulin Ratio 1.1 (0.9-2); Alkaline Phosphatase 65 U/L (45-117); Bilirubin,Total 0.4 mg/dl (0.2-1); Creatine Kinase 30 U/L (26-192); Total Protein 6.4 gm/dl (6.4-8.2); Troponin I < 0.015 ng/ml (0-0.045)
--- NOTE | 2019-12-28 09:31 | History & Physical Report ---
Date of Service December 28, 2019 Assessment & Plan (1) Hematochezia: Patient presents with complaints of diarrhea for the last 1 month infectious etiologies to be ruled out hemoglobin did drop 1 g patient will have her daily aspirin held checking serial hemoglobins and consideration of endoscopy if required Patient is hemodynamically stable but will be on telemetry unit due to concern for acute changes that could occur with a GI bleed given her age and comorbidities (2) Dementia: Patient to remain on Aricept and Namenda. Patient is also on Zoloft for depression which might be associated with her dementia (3) COPD (chronic obstructive pulmonary disease): This is in the records of her history she is on no inhalers and she is 98% on room air will challenges diagnosis with further historical evidence (4) Hypertension: Patient remains on her atenolol 25 will follow for low blood pressure (5) GERD (gastroesophageal reflux disease): Prehospital patient was on pantoprazole be changed to bolus twice daily (6) DVT prophylaxis: With concern for GI bleeding SCDs will be applied History of Present Illness Patient's daughter Primary Care Provider: Issac Pimentel MD 84-year-old female with dementia who presents with diarrhea for 1 month's time now turning into more of a bloody bowel movement. Patient's been hemodynamically stable in the ER her hemoglobin did drop 1 g from previous records patient cannot recall a recent colonoscopy. Patient's daughters are present at the bedside and does wonder if some of her dementia medications could be contributing to her diarrhea. Patient denies any exposure to foods that might be implicated with food poisoning, no recent antibiotic treatments, and she does not drink well water. Allergies Allergy/AdvReac Type Severity Reaction Status Date / Time hydrocodone [From [place]] Allergy Hallucinati Verified 12/28/19 08:49 ng tramadol Allergy Hallucinati Verified 12/28/19 08:49 ng Home Medications Home Medications Medication Instructions Recorded Confirmed Type Ocuvite with Lutein 1 tab PO DAILY 12/11/18 12/28/19 History aspirin [Aspirin Low Dose] 81 mg PO DAILY 12/11/18 12/28/19 History cholecalciferol (vitamin D3) 2,000 unit PO DAILY 12/11/18 12/28/19 History [Vitamin D3] atenolol 50 mg tablet 25 mg PO DAILY tab 02/05/19 12/28/19 History sertraline 25 mg tablet 25 mg PO DAILY #90 tab 06/28/19 12/28/19 Rx pantoprazole 40 mg tablet,delayed 40 mg PO DAILY #90 tab 08/20/19 12/28/19 Rx release donepezil 5 mg tablet 5 mg PO DAILY #30 tab 08/25/19 12/28/19 Rx memantine 21 mg capsule 21 mg PO DAILY #30 ea 08/25/19 12/28/19 Rx sprinkle,extended release 24hr Past Med/Surg History Medical History (Updated 12/28/19 @ 09:35 by Norm Perrin MD) Acute metabolic encephalopathy Altered mental status (Inactive) ARF (acute renal failure) (Acute) Chronic kidney disease, stage 3a Dementia History of fracture of clavicle (Inactive) HTN (hypertension) (Chronic) Hypothermia (Inactive) Hypoxia Pelvic fracture (Inactive) Surgical History History of section History of hysterectomy S/P hysterectomy Social History Preferred Language: Sami Communication Ability: Effective Government Program 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: No Beliefs That Will Affect Care: None marital status: / Current Living Situation: Alone Other Information That Helps Us Care for You: No Feels Safe at Home: Yes Safety Concerns: Feels Safe At This Time Smoking Status: Former smoker Do You Dip or Chew Tobacco: No ; Hx Alcohol Use: No Hx Substance Use: No Physical Activity Frequency: Daily Seatbelt Use: always Review of Systems Review of Systems: Mild distress and fatigue no headache, blurry or double vision no speech or swallowing issues no chest pain, pressure or palpitations no shortness of breath, cough or wheezes no abdominal pain, nausea or vomiting there is of some persistent diarrhea or bright red blood present in it no dysuria, hematuria or frequency no focal joint pain or swelling no back pain, CVA tenderness or radicular pain no bruising, bleeding or rashes no focal signs of weakness or numbness or altered sensation no complaints or anxiety or depression Physical Exam Physical Exam: The patient appeared well nourished and normally developed. Vital signs as documented. Head exam is normocephalic atraumatic no scleral icterus Neck is without JVD, thyromegaly, or carotid bruits. Lungs are clear to auscultation, no focal loss of breath sounds Cardiac exam, Rhythm is regular.. No murmurs, rubs or gallops. Abdominal exam reveals normal bowel sounds, soft non tender, no masses Extremities are nonedematous and both pedal pulses are normal. Neurologic exam is alert and oriented, no focal loss of strength or sensation Skin is without bruises or rashes Psychologically is without concerns for anxiety or depression Results & Data Results & Data ([facility]) Vital Signs (Past 12 Hours) Vital Signs Temp Pulse Resp BP Pulse Ox 12/28/19 08:05 98.1 F 100 H 20 111/67 98 PG Care Time/CCT Total # of Minutes Spent Total Time Spent with Patient: Total time spent is greater than 50% in coordination of care (as documented) at patient's floor/unit and/or counseling patient: Coding Level of Care Code 82370 Initial Inpt Care Lvl 2 Diagnoses Hematochezia K92.1 Dementia F03.90 COPD (chronic obstructive pulmonary disease) J44.9 COPD type: unspecified COPD Hypertension I10 Hypertension type: essential hypertension GERD (gastroesophageal reflux disease) K21.9 DVT prophylaxis Z29.9 (1) COPD (chronic obstructive pulmonary disease) COPD type: unspecified COPD Qualified Code(s): J44.9 - Chronic obstructive pulmonary disease, unspecified (2) Hypertension Hypertension type: essential hypertension Qualified Code(s): I10 - Essential (primary) hypertension
[2019-12-28 09:35] LABS: iSTAT Creatinine 0.9 mg/dl (0.6-1.3); iSTAT Hemoglobin 10.9 g/dl (12.0-16.0); iSTAT Ionized Calcium 1.22 mmol/l (1.12-1.32); iSTAT Potassium 4.4 mmol/L (3.3-5.0)
[2019-12-28] MEDS ORDERED: ALUMINUM/MAGNESIUM SUSP 30 ML UDC PO PRN (11:44)
[2019-12-28] MEDS ORDERED: SODIUM CHLORIDE 0.9% 1000ML 1,000 ML IV SCH (11:44)
[2019-12-28] MEDS ORDERED: ACETAMINOPHEN 325 MG TAB PO PRN (11:44)
--- NOTE | 2019-12-28 12:38 | Electrocardiogram Report ---
Test Reason : Blood Pressure : / mmHG Vent. Rate : 078 BPM Atrial Rate : 078 BPM P-R Int : 136 ms QRS Dur : 076 ms QT Int : 390 ms P-R-T Axes : 057 001 054 degrees QTc Int : 444 ms Normal sinus rhythm Normal ECG When compared with ECG of 26-MAY-2019 13:00, Vent. rate has increased BY 28 BPM Confirmed by Dale Myers ([id number]) on 12/28/2019 12:38:22 PM Referred By: REFERRED SELF Confirmed By:Dale Myers
[2019-12-28 13:32] LABS: Hematocrit (blood only) 31.9 % (37-47); Hemoglobin 10.4 g/dL (12.0-16.0)
[2019-12-28] MEDS: PANTOprazole 40 MG in SYRINGE 0 ML IV SCH ×2 (13:42→20:21)
[2019-12-28] MEDS: MEMANTINE HCL 5 MG TAB PO SCH ×2 (13:46→20:22)
[2019-12-28 22:11] LABS: Basophils # (auto) 0.08 K/uL (0-0.2); Basophils % (auto) 0.9 %; Eosinophils # (auto) 0.12 K/uL (0-0.5); Eosinophils % (auto) 1.3 %; Hematocrit (blood only) 27.8 % (37-47); Hemoglobin 9.2 g/dL (12.0-16.0); Immature Granulocytes # (auto) 0.02 K/uL (0.00-0.02); Immature Granulocytes % (auto) 0.2 %; Lymphocytes # (auto) 1.74 K/uL (1.2-3.4); Lymphocytes % (auto) 18.5 %; Mean Corpuscular Hemoglobin 29.9 pg (25-34); Mean Corpuscular Hgb Conc 33.1 g/dL (32-36); Mean Corpuscular Volume 90.3 fL (80-100); Mean Platelet Volume 9.1 fL (7.4-10.4); Monocytes # (auto) 0.81 K/uL (0.11-0.59); Monocytes % (auto) 8.6 %; Neutrophils # (auto) 6.63 K/uL (1.4-6.5); Neutrophils % (auto) 70.5 %; Platelet Count 241 K/uL (130-400); RDW Coefficient of Variation 14.3 % (11.5-14.5); RDW Standard Deviation 47.1 fL (36.4-46.3); Red Blood Count 3.08 M/uL (4.2-5.4)
[2019-12-29 06:35] LABS: Hematocrit (blood only) 28.1 % (37-47); Hemoglobin 9.3 g/dL (12.0-16.0); Mean Corpuscular Hemoglobin 29.8 pg (25-34); Mean Corpuscular Hgb Conc 33.1 g/dL (32-36); Mean Corpuscular Volume 90.1 fL (80-100); Mean Platelet Volume 9.1 fL (7.4-10.4); Platelet Count 252 K/uL (130-400); RDW Coefficient of Variation 14.4 % (11.5-14.5); Red Blood Count 3.12 M/uL (4.2-5.4); White Blood Count 7.85 K/uL (4.8-10.8)
[2019-12-29 07:04] LABS: BUN Creatinine Ratio 16.9 (10-20); Calcium 8.4 mg/dl (8.5-10.1); Creatinine Clr Calc Pharmacy 38.7 ml/min; Est GFR (African American) 77.4; Est GFR (Non-African American) 66.8; Potassium 3.5 mmol/L (3.5-5.1)
--- NOTE | 2019-12-29 07:22 | Hospitalist Progress Note ---
Date of Service December 29, 2019 Assessment & Plan (1) Hematochezia: Patient presents with complaints of diarrhea for the last 1 month infectious etiologies to be ruled out hemoglobin did drop 1 g patient will have her daily aspirin held checking serial hemoglobins and consideration of endoscopy if required CT scan abdomen pelvis 12/29/2019 IMPRESSION: 1. Chronic colonic diverticulosis. 2. No evidence for diverticulitis. 3. Stable bilateral renal cysts. 4. Stable aneurysmal distention low thoracic aorta. pt now with acute blood loss anemia not in need of transfusion (2) Dementia: Patient to remain on Aricept and Namenda. Patient is also on Zoloft for depression which might be associated with her dementia (3) COPD (chronic obstructive pulmonary disease): This is in the records of her history she is on no inhalers and she is 98% on room air will challenges diagnosis with further historical evidence (4) Hypertension: Patient remains on her atenolol 25 will follow for low blood pressure (5) GERD (gastroesophageal reflux disease): Prehospital patient was on pantoprazole be changed to bolus twice daily (6) DVT prophylaxis: With concern for GI bleeding SCDs continue Admission and Anticipated Discharge Date Admission Date: December 28, 2019 Subjective this pt has no additional complaints, she did have a reduction in her hemiglobin, she has no pain, Ct ordered today of her abdomen and pelvis which was unrevealing for sources of anemia Review of Systems Review of Systems: Mild distress and fatigue no headache, blurry or double vision no speech or swallowing issues no chest pain, pressure or palpitations no shortness of breath, cough or wheezes no abdominal pain, nausea or vomiting, diarrhea or constipation no dysuria, hematuria or frequency no focal joint pain or swelling no back pain, CVA tenderness or radicular pain no bruising, bleeding or rashes no focal signs of weakness or numbness or altered sensation no complaints or anxiety or depression. Physical Exam Physical Exam: The patient appeared well nourished and normally developed. Vital signs as documented. Head exam is normocephalic atraumatic no scleral icterus Neck is without JVD, thyromegaly, or carotid bruits. Lungs are clear to auscultation, no focal loss of breath sounds Cardiac exam, Rhythm is regular.. No murmurs, rubs or gallops. Abdominal exam reveals normal bowel sounds, soft non tender, no masses Extremities are nonedematous and both pedal pulses are normal. Neurologic exam is alert and oriented, no focal loss of strength or sensation Skin is without bruises or rashes Psychologically is without concerns for anxiety or depression Results & Data Results & Data ([facility]) Vital Signs (Past 12 Hours) Vital Signs Temp Pulse Resp BP Pulse Ox 12/29/19 03:29 97.9 F 74 18 130/74 97 12/28/19 23:53 98.2 F 101 H 18 152/89 H 96 12/28/19 19:43 98.6 F 82 20 158/90 H 95 PG Care Time/CCT Total # of Minutes Spent Total Time Spent with Patient: Total time spent is greater than 50% in coordination of care (as documented) at patient's floor/unit and/or counseling patient: Coding Level of Care Code 56649 Subseq Hosp Care Lvl 3 Diagnoses Hematochezia K92.1 Dementia F03.90 COPD (chronic obstructive pulmonary disease) J44.9 COPD type: unspecified COPD Hypertension I10 Hypertension type: essential hypertension GERD (gastroesophageal reflux disease) K21.9 DVT prophylaxis Z29.9 (1) COPD (chronic obstructive pulmonary disease) COPD type: unspecified COPD Qualified Code(s): J44.9 - Chronic obstructive pulmonary disease, unspecified (2) Hypertension Hypertension type: essential hypertension Qualified Code(s): I10 - Essential (primary) hypertension
[2019-12-29] MEDS: MEMANTINE HCL 5 MG TAB PO SCH ×2 (08:18→21:02)
[2019-12-29] MEDS: DONEPEZIL HCL 5 MG TAB PO SCH (08:19)
[2019-12-29] MEDS: ATENOLOL 25 MG TABLET PO SCH (08:20)
[2019-12-29] MEDS: CEROVITE ADV FORMULA TAB PO SCH (08:20)
[2019-12-29] MEDS: SERTRALINE HCL 50 MG TABLET PO SCH (08:21)
[2019-12-29] MEDS: PANTOprazole 40 MG in SYRINGE 0 ML IV SCH ×2 (08:37→21:02)
--- NOTE | 2019-12-29 10:03 | Gastrointestinal Consultation ---
Date of Consultation December 29, 2019 Assessment & Plan (1) Diarrhea: With hematochezia & anemia. Patient has had water & red jello this AM. -Check C diff, stool culture, gram stain stool. -CT scan of abdomen/pelvis with po & IV contrast. -Pending results of testing, could consider colonoscopy if patient and daughter desire aggressive management. Thank you for allowing us to participate in the care of this patient. If you should have any further questions or concerns, do not hesitate to contact us at extension [phone] or [phone], Present on Admission?: Yes Supervising Physician Co-Signing Physician Notes Agree with GLORIA Cabral Abd: Soft, NT, ND, +BS Continue current therapy Await CT results No plans for invasive workup at present. History of Present Illness Reason for Consultation: Anemia, diarrhea, hematochezia Attending Physician: Norm Perrin MD History of Present Illness Patient is an 84 yo female currently admitted to [facility]. GI has been consulted for diarrhea, anemia & hematochezia. The patient reports to me this morning that her diarrhea only began the day she presented to the ED after seeing blood in her stool, however per the daughter's reports to other providers that this has been ongoing for 1 month. She tells me that it occurs 3-4 times daily. She reports an episode of BRBPR prior to presentation to the hospital. Her H/H is presently 9.3/28.1. She cannot recall the last colonoscopy she had, but was previously a patient of Dr. Mendez. She reports that she does not have any abdominal pain at present but has occasional cramping. She denies fevers or chills. She offers no further complaints specific to her GI issues. She is currently drinking water and eating red jello in bed. Upon review of her records, it does appear that she was having diarrhea back in April [address] scan at that time with a non-specific colitis. Allergies Allergy/AdvReac Type Severity Reaction Status Date / Time hydrocodone [From [place]] Allergy Hallucinati Verified 12/28/19 08:49 ng tramadol Allergy Hallucinati Verified 12/28/19 08:49 ng Home Medications Home Medications Medication Instructions Recorded Confirmed Type Ocuvite with Lutein 1 tab PO DAILY 12/11/18 12/28/19 History aspirin [Aspirin Low Dose] 81 mg PO DAILY 12/11/18 12/28/19 History cholecalciferol (vitamin D3) 2,000 unit PO DAILY 12/11/18 12/28/19 History [Vitamin D3] atenolol 50 mg tablet 25 mg PO DAILY tab 02/05/19 12/28/19 History sertraline 25 mg tablet 25 mg PO DAILY #90 tab 06/28/19 12/28/19 Rx pantoprazole 40 mg tablet,delayed 40 mg PO DAILY #90 tab 08/20/19 12/28/19 Rx release donepezil 5 mg tablet 5 mg PO DAILY #30 tab 08/25/19 12/28/19 Rx memantine 21 mg capsule 21 mg PO DAILY #30 ea 08/25/19 12/28/19 Rx sprinkle,extended release 24hr Patient History Medical History (Updated 12/29/19 @ 09:58 by Soila Reyes PA-C) Acute metabolic encephalopathy Altered mental status (Inactive) ARF (acute renal failure) (Acute) Chronic kidney disease, stage 3a Dementia History of fracture of clavicle (Inactive) HTN (hypertension) (Chronic) Hypothermia (Inactive) Hypoxia Pelvic fracture (Inactive) Surgical History History of section History of hysterectomy S/P hysterectomy Social History Preferred Language: Welsh Communication Ability: Effective Video Control Engineer Required: No Beliefs That Will Affect Care: None marital status: / Current Living Situation: Alone Other Information That Helps Us Care for You: No Feels Safe at Home: Yes Safety Concerns: Feels Safe At This Time Smoking Status: Former smoker Do You Dip or Chew Tobacco: No ; Hx Alcohol Use: No Hx Substance Use: No Physical Activity Frequency: Daily Seatbelt Use: always Review of Systems Constitutional: no fever and no chills Eyes: no problem reported Respiratory: no cough and no dyspnea Cardiovascular: no chest pain Gastrointestinal: + cramping and + diarrhea/loose stools Musculoskeletal: no back pain Integumentary: no rash Neurologic: no dizziness Hematologic / Lymphatic: no easy bleeding Physical Exam Constitutional: no acute distress Eyes: PERRL, conjunctivae normal, anicteric sclerae ENMT: external ear and nose normal, oropharynx normal Neck: normal visual inspection Respiratory: normal respiratory effort, lungs clear to auscultation Cardiovascular: Rate/Rhythm: regular rate and regular rhythm Gastrointestinal (Abdomen): normal bowel sounds, soft, nontender, no hepatosplenomegaly Skin: no rashes, warm and dry Psychiatric: A+Ox3, euthymic affect Results & Data ([facility]) Vital Signs (Past 12 Hours) Vital Signs Temp Pulse Resp BP BP Pulse Ox 12/29/19 07:56 36.7 C 72 16 143/87 H 97 12/29/19 03:29 36.6 C 74 18 130/74 97 12/28/19 23:53 36.8 C 101 H 18 152/89 H 96 PG Care Time/CCT Total # of Minutes Spent Total Time Spent with Patient: Total time spent is greater than 50% in coordination of care (as documented) at patient's floor/unit and/or counseling patient: Coding Level of Care Code 39743 Initial Inpt Care Lvl 3 Diagnoses Diarrhea R19.7 Diarrhea type: unspecified type (1) Diarrhea Diarrhea type: unspecified type Qualified Code(s): R19.7 - Diarrhea, unspecified
[2019-12-29] MEDS: ONDANSETRON INJ 2 MG/ML 2 ML VIAL IV PRN (11:12)
[2019-12-29] MEDS ORDERED: IOVERSOL 100ml IV PRN (15:52)
--- NOTE | 2019-12-29 16:07 | CT Scan Report ---
CT abd pelvis IV con only CT DOSE: 209.28 mGy.cm HISTORY: GI bleed TECHNIQUE: Multiaxial CT images of the abdomen and pelvis were performed following the use of intrave nous contrast. A dose lowering technique was utilized adhering to the principles of ALARA. COMPARISON STUDY: 05/26/2019 FINDINGS: Chronic parenchymal scarring right to a lesser extent left base. Aneurysmal dilatation low thoracic aorta unchanged. The liver spleen and pancreas enhance uniformly. Bilateral renal cysts are present as are considered stable and unchanged. The bowel pattern is considered nonobstructive. There are findings of chronic colonic diverticulosis. There is no evidence for acute diverticulitis. IMPRESSION: 1. Chronic colonic diverticulosis. 2. No evidence for diverticulitis. 3. Stable bilateral renal cysts. 4. Stable aneurysmal distention low thoracic aorta. ACT 112: Negative or not required by law. The above report was generated using voice recognition software. It may contain grammatical, syntax or spelling errors. Electronically signed by: Tony Campo M.D. 12/29/2019 4:06 PM
[2019-12-30 06:42] LABS: Hematocrit (blood only) 28.8 % (37-47); Hemoglobin 9.5 g/dL (12.0-16.0); Mean Corpuscular Hemoglobin 29.9 pg (25-34); Mean Corpuscular Volume 90.6 fL (80-100); Mean Platelet Volume 9.1 fL (7.4-10.4); Platelet Count 248 K/uL (130-400); RDW Coefficient of Variation 14.4 % (11.5-14.5); RDW Standard Deviation 48.1 fL (36.4-46.3); Red Blood Count 3.18 M/uL (4.2-5.4); White Blood Count 6.92 K/uL (4.8-10.8)
[2019-12-30 07:07] LABS: BUN Creatinine Ratio 12.6 (10-20); Calcium 8.5 mg/dl (8.5-10.1); Creatinine Clr Calc Pharmacy 33.5 ml/min; Est GFR (African American) 64.5; Est GFR (Non-African American) 55.6; Potassium 3.6 mmol/L (3.5-5.1)
[2019-12-30] MEDS: PANTOprazole 40 MG in SYRINGE 0 ML IV SCH (08:09)
[2019-12-30] MEDS: ONDANSETRON INJ 2 MG/ML 2 ML VIAL IV PRN (08:09)
--- NOTE | 2019-12-30 09:42 | Gastroenterology Progress Note ---
Date of Service December 30, 2019 Assessment & Plan (1) Diarrhea: Patient reports her diarrhea has resolved and she wishes to return home. It is unclear based on documentation in the chart if the diarrhea has actually stopped, however we did have a discussion about the next steps to evaluate jayro bonilla & rectal bleeding. After discussing a bowel prep for a colonoscopy, she firmly reported that she would not wish to even attempt that. She notes that she was unable to tolerate po contrast for her CT scan. She understands the risks of not evaluating further and wishes to return home. I would advise that in order to prevent further issues with diarrhea, she consider taking Metamucil 1 tsp-1 tablespoon daily in 8 oz noncarbonated beverage. If diarrhea continues, I would want stool studies to be obtained. If she has no infection and chooses not to proceed with a colonoscopy, she could utilize prn Imodium (sparingly so as not to cause constipation). Discussed this case with the patient's hospitalist as well. Thank you for allowing us to participate in the care of this patient. If you s hould have any further questions or concerns, do not hesitate to contact our office at [phone] or extension [phone]. Present on Admission?: Yes Admission and Anticipated Discharge Date Admission Date: December 28, 2019 Supervising Physician Co-Signing Physician Notes Patient was discharged prior to my evaluation Subjective Patient is an 84 yo female GI was asked to follow for diarrhea. Per nursing, stool studies were not obtained yesterday as patient was incontinent. A CT scan was performed yesterday. Unfortunately, patient was not able to tolerate oral contrast. The study was unremarkable/negative for overt lesions and concerns. There was concern for rectal bleeding. The patient reports her diarrhea has stopped. Of note, she is more talkative today and does seem to be oriented appropriately. She requests to go home since her diarrhea has stopped. She notes that even if it hadn't stopped, she is unsure of her desire to undergo a colonoscopy because she does not feel she could tolerate the bowel prep. Her H/H is stable today at 9.5/28.8. Review of Systems Constitutional: no fever Respiratory: no cough Cardiovascular: no chest pain Gastrointestinal: + nausea; no abdominal pain and no diarrhea/loose stools Musculoskeletal: + back pain Physical Exam Constitutional: no acute distress Respiratory: normal respiratory effort Cardiovascular: RRR, no murmur, no edema Gastrointestinal (Abdomen): normal bowel sounds, soft, nontender, no hepatosplenomegaly Skin: no rashes, warm and dry Psychiatric: Orientation: alert, oriented to person, oriented to place, oriented to time and cooperative Results & Data Results & Data ([facility]) Vital Signs (Past 12 Hours) Vital Signs Temp Pulse Resp BP BP Pulse Ox 12/30/19 07:59 36.3 C L 57 L 20 129/69 97 12/30/19 03:00 36.6 C 56 L 18 132/76 93 12/29/19 23:26 36.7 C 57 L 18 104/67 95 PG Care Time/CCT Total # of Minutes Spent Total Time Spent with Patient: Total time spent is greater than 50% in coordination of care (as documented) at patient's floor/unit and/or counseling patient: Coding Level of Care Code 19290 Subseq Hosp Care Lvl 2 Diagnoses Diarrhea R19.7 Diarrhea type: unspecified type (1) Diarrhea Diarrhea type: unspecified type Qualified Code(s): R19.7 - Diarrhea, unspecified
[2019-12-30] MEDS: ATENOLOL 25 MG TABLET PO SCH (10:03)
[2019-12-30] MEDS: MEMANTINE HCL 5 MG TAB PO SCH (10:03)
[2019-12-30] MEDS: CEROVITE ADV FORMULA TAB PO SCH (10:03)
[2019-12-30] MEDS: DONEPEZIL HCL 5 MG TAB PO SCH (10:03)
[2019-12-30] MEDS: SERTRALINE HCL 50 MG TABLET PO SCH (10:03)
--- NOTE | 2019-12-30 13:49 | Discharge Summary ---
Date of Service December 30, 2019 Admission HPI Per Admitting Provider 84-year-old female with dementia who presents with diarrhea for 1 month's time now turning into more of a bloody bowel movement. Patient's been hemodynamically stable in the ER her hemoglobin did drop 1 g from previous r ecords patient cannot recall a recent colonoscopy. Patient's daughters are present at the bedside and does wonder if some of her dementia medications could be contributing to her diarrhea. Patient denies any exposure to foods that might be implicated with food poisoning, no recent antibiotic treatments, and she does not drink well water. Principal Diagnosis lower gi bleed-resolved Discharge Exam The patient appeared well Vital signs as documented. Lungs are clear to auscultation and appear unlabored Cardiac exam, Rhythm is regular.. No murmurs, rubs or gallops. Abdominal exam reveals normal bowel sounds, soft non tender, no masses Extremities are nonedematous and both pedal pulses are normal. Neurologic exam is alert and oriented, no focal loss of strength or sensation Skin is without bruises or rashes Psychologically is without concerns for anxiety or depression Discharge Data Allergies Allergy/AdvReac Type Severity Reaction Status Date / Time hydrocodone [From [place]] Allergy Hallucinati Verified 12/28/19 08:49 ng tramadol Allergy Hallucinati Verified 12/28/19 08:49 ng Consultations 12/28/19 09:23 ED Decision to Admit Stat 12/29/19 07:22 Consult Gastroenterology Routine Ordered Studies 12/29/19 12:09 CT Abd and Pelvis [CT abd pelvis IV con only] Routine Hospital Course (1) Hematochezia: Patient presents with complaints of diarrhea for the last 1 month infectious etiologies to be ruled out hemoglobin did drop 1 g patient will have her daily aspirin held checking serial hemoglobins and consideration of endoscopy if required CT scan abdomen pelvis 12/29/2019 IMPRESSION: 1. Chronic colonic diverticulosis. 2. No evidence for diverticulitis. 3. Stable bilateral renal cysts. 4. Stable aneurysmal distention low thoracic aorta. pt with acute blood loss anemia not in need of transfusion discussion with pt and daughter do not wish to pursue aggressive diagnostic evaluation such as colonoscopy and also understand that no stool culture was obtained to evaluate for infection as pt has ceased having diarrhea (2) Dementia: Patient to remain on Aricept and Namenda. Patient is also on Zoloft for depression (3) COPD (chronic obstructive pulmonary disease): This is in the records of her history she is on no inhalers and she is 98% on room air will challenges diagnosis with further historical evidence (4) Hypertension: Patient remains on her atenolol 25 will follow for low blood pressure (5) GERD (gastroesophageal reflux disease): Prehospital patient was on pantoprazole be changed to bolus twice daily Total Time Total Time Spent Total Time Spent (In Minutes): It required greater than 30 minutes to prepare this patient for discharge Discharge Plan Discharge Items Patient Disposition: Home - Home Health Services Reason For Visit: HEMATOCHEZIA Discharge Diagnosis: lower Gi bleeding Activity: Resume your previous activity Non-emergency contact: Primary Care Provider Call non-emergency contact if: you have any medication questions and your symptoms worsen Follow-up/Referrals: Issac Pimentel MD [Primary Care Provider] - 01/04/20 11:15 am (Please, follow up with Dr. Contreras on FridayJanuary 03 at 11:15 am. *If you need to change this appointment, call the office at [phone].) Diet: Regular Addtl Attending Provider Instructions: please have some rest and eat and drink well, keep well hydrated. follow up with your primary care doctor to consider repeat lab testing resume your aspirin on 12/31/19 Pending Studies at Discharge: No Stand-Alone Forms: My [facility], Smoking Cessation Medications and DC Order Prescriptions: Continued sertraline 25 mg tablet 25 mg PO DAILY Qty: 90 RF: 1 pantoprazole 40 mg tablet,delayed release (DR/EC) 40 mg PO DAILY Qty: 90 RF: 1 atenolol 50 mg tablet 25 mg PO DAILY RF: 0 donepezil 5 mg tablet 5 mg PO DAILY Qty: 30 RF: 5 memantine 21 mg capsule,sprinkle,ER 24hr 21 mg PO DAILY Qty: 30 RF: 5 aspirin [Aspirin Low Dose] 81 mg Tablet,Delayed Release (Dr/Ec) 81 mg PO DAILY RF: 0 Ocuvite with Lutein 1,000 unit-200 mg-60 unit-2 mg Tablet 1 tab PO DAILY RF: 0 cholecalciferol (vitamin D3) [Vitamin D3] 2,000 unit Capsule 2,000 unit PO DAILY RF: 0 Discharge Orders: Discharge Order (Routine); Ordered 12/30/19 Ordered By: Norm Perrin Admission Data Admit Date/Time: 12/28/19 09:40 Attending Provider: Norm Perrin Admit Provider: Norm Perrin Primary Care Provider: Issac Pimentel V. Other Providers: Norm Perrin ; Tarik Powers ; [facility] Coding Level of Care Code D/C Day Management >30 mins Diagnoses Hematochezia K92.1 Dementia F03.90 Dementia behavioral disturbance: without behavioral disturbance Dementia type: unspecified type COPD (chronic obstructive pulmonary disease) J44.9 COPD type: unspecified COPD Hypertension I10 Hypertension type: essential hypertension GERD (gastroesophageal reflux disease) K21.9
== END 2019-12-30 14:30 | disposition home health service (06) | DRG 392 ==
LOC: ED 08:03 → INTOOBSV 09:40 → 2S 09:40

== ENCOUNTER 2022-01-09 11:05 | Inpatient (IN) ==
[2022-01-09 11:57] LABS: Appearance Urine Cloudy (Clear); Blood Urine Negative (Negative); Color Urine Dark Yellow; Glucose Urine UA Negative (Negative); Ketones Urine Trace (Negative); Leukocyte Esterase Urine Negative (Negative); Nitrite Urine Negative (Negative); Protein Urine Trace (Negative); RBC Urine Automated 0-4 /hpf (0-4); Specific Gravity Urine 1.018 (1.000-1.030); Urobilinogen Urine Negative (Negative)
[2022-01-09] MEDS ORDERED: SODIUM CHLORIDE 0.9% 500 ML IV ONE (12:10)
--- NOTE | 2022-01-09 12:13 | Emergency Department Note ---
Impression & Plan Colitis, Thoracic aortic aneurysm (TAA), MISSY (acute kidney injury), Weakness, Leukocytosis ED Provider Note NAME: LORRAINE MCMULLEN AGE: 86 SEX: F : 1935 ARRIVES VIA: Ambulance INFORMANT: Patient ED PROVIDER(S): Gigi Shirley DO CHIEF COMPLAINT: weakness HPI: Patient is an 86-year-old female who presents the ER with a past medical history of mitral regurg, pulmonary hypertension, COPD, hypertension that presents the ER for weakness. Daughter notes that she has dementia and she just underwent a 2-week respite care. She is a DNR/DNI. She is currently living at home with the daughter and she is having trouble caring for her as she is becoming more weak and she can assist with day-to-day functions. Patient admits to a headache. She denies any chest pain or shortness of breath. No belly pain. Daughter notes that she has not been eating or drinking. No other complaints at this time. She denies any pain. She admits to a mild frontal headache. ROS: See above HPI for pertinent positives & negatives. A total of 10 systems reviewed and were otherwise negative. PAST MEDICAL HISTORY:See Below PAST SURGICAL HISTORY:See Below FAMILY HISTORY:See Below SOCIAL HISTORY:See Below HOME MEDICATIONS:See Below ALLERGIES:See Below VITALS:See Below PHYSICAL EXAMINATION: GENERAL: Sitting up in bed, alert, cachectic, malnourished, chronically ill-appe aring, sleeping but awakens to voice EYE EXAM: normal conjunctiva. PERRL and EOM's grossly intact. OROPHARYNX: no exudate, no erythema, lips, buccal mucosa, and tongue normal and mucous membranes are moist NECK: supple, no nuchal rigidity, no adenopathy, non-tender LUNGS: Clear to auscultation. Normal chest wall mechanics HEART: no murmurs, S1 normal and S2 normal ABDOMEN: abdomen soft, non-tender, normo-active bowel sounds, no masses, no rebound or guarding. UPPER EXTREMITIES: upper extremities are grossly normal. LOWER EXTREMITIES: No pitting edema. NEURO EXAM: Oriented to person and daughter but not year or place, cranial nerves are grossly intact, no weakness of the upper or lower extremities MEDICAL DECISION MAKING: Patient is an 86-year-old female who presents ER with above-stated complaint. IV was established blood work was obtained. Labs show leukocytosis of nearly 20,000. Mild anemia 11.9. Hypokalemia 3.2. Hypernatremia 146. Creatinine at 2.8 up from baseline of 1.8. Troponin was elevated at nearly 40. UA was contaminated. COVID was negative. EKG showed new diffuse ST wave changes she has no chest pain or shortness of breath. CT of the abdomen pelvis was initially performed secondary to the large leukocytosis which showed a large thoracic aneurysm and consequently CT of the chest was then performed. Unable to form with contrast due to kidney failure. Patient is having diarrhea with the CT reviewed inflammation of the bowel do favor this most consistent with a colitis. Patient was given IV antibiotics as well as IV fluids. Daughter was updated bedside. Discussed with hospitalist admitted for further work-up. Triage Nursing notes reviewed. Limited review of prior medical records performed Vital Signs: reviewed and remarkable for no significant abnormalities Differential diagnosis: Infection, dehydration, metabolic abnormality, hypo/hyperglycemia, electrolyte d isturbance, anemia, hypoxia, cardiac sources, intracerebral event, toxicologic, neurologic, as well as other pathologies. ER treatment provided: See below Diagnostics interpreted by me: ECG: Sinus rhythm rate of 61 Normal axis T wave inversion in V1 through V6 with ST depressions new from old Cardiac Monitoring: An order was placed for continuous cardiac monitoring. The monitor shows a rate of 62 with sinus rhythm. Laboratory studies: As stated above and show below. Imaging studies: CT of the chest abdomen pelvis as discussed above Consultation(s): Discussed with Quinten Merritt for further evaluation Procedures: none Critical Care: None Past Med/Surg History Medical History Acute metabolic encephalopathy Altered mental status ARF (acute renal failure) Chronic kidney disease, stage 3a Colitis Dementia History of fracture of clavicle HTN (hypertension) Hypothermia Hypoxia Nausea vomiting and diarrhea Numbness in left leg Pelvic fracture Surgical History History of section History of hysterectomy S/P hysterectomy Family History Mother Cancer Breast cancer Father Alcohol abuse Sister Diabetes Hypothyroidism Brother Diabetes Denies family history of Ovarian cancer Prostate cancer Myocardial infarction Colorectal cancer Social History Smoking Status: Never smoker Tobacco Type: Cigarettes Hx Alcohol Use: No Hx Substance Use: No Preferred Language: Korean Communication Ability: Effective 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 Design 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: No Beliefs That Will Affect Care: None marital status: / Current Living Situation: Alone Feels Safe at Home: Yes Physical Activity Frequency: Daily Seatbelt Use: always Assistive Devices: None Allergies Allergies Allergy/AdvReac Type Severity Reaction Status Date / Time hydrocodone [From [place]] Allergy Hallucinati Verified 01/09/22 16:08 ng tramadol Allergy Hallucinati Verified 01/09/22 16:08 ng Home Meds Home Medications Medication Instructions Recorded Confirmed atenolol 25 mg tablet 25 mg PO QAM 01/09/22 01/09/22 cholecalciferol (vitamin D3) 50 2,000 unit PO QAM 01/09/22 01/09/22 mcg (2,000 unit) capsule (Vitamin D3) duloxetine 20 mg capsule,delayed 20 mg PO QAM 01/09/22 01/09/22 release (Cymbalta) memantine 28 mg capsule 28 mg PO QAM 01/09/22 01/09/22 sprinkle,extended release 24hr pantoprazole 40 mg tablet,delayed 40 mg PO QAM 01/09/22 01/09/22 release vit A 300 mcg-C 200 mg-E 27 1 tab PO QAM 01/09/22 01/09/22 mg-lutein 2 mg and minerals tablet (Ocuvite with Lutein) Previous Rx's Medication Instructions Recorded albuterol sulfate 90 mcg/actuation 1 inh INHALATION QID PRN #8.5 g 05/16/21 aerosol inhaler budesonide-formoterol HFA 80 2 puff INHALATION BID #10.2 g 05/16/21 mcg-4.5 mcg/actuation aerosol inhaler (Symbicort) Spacer for Inhaler #1 ea 05/17/21 Results & Data (ED) Vital Signs Vital Signs - 24 hr 01/09/22 11:27 01/09/22 12:59 01/09/22 13:00 Temperature 36.6 C Temperature Source Oral Pulse Rate 60 Pulse Rate [Apical] 56 L Respiratory Rate 19 19 Respiratory Effort / Characteristics Non-Labored Spontaneous Non-Labored Spontaneous Respiratory Depth Normal Normal Blood Pressure 116/67 Blood Pressure [Left Arm] 116/67 Blood Pressure Mean 83 Blood Pressure Mean [Left Arm] 83 Pulse Oximetry 94 96 94 Oxygen Delivery Method Room Air Room Air Room Air Sepsis Recent Fever Within 48 Hours No Sepsis New/Unexplained Change in Mental Status Yes Sepsis Action Taken by Nursing No Action Required 01/09/22 14:00 01/09/22 16:00 Temperature Temperature Source Pulse Rate Pulse Rate [Apical] 61 62 Respiratory Rate 18 19 Respiratory Effort / Characteristics Respiratory Depth Blood Pressure Blood Pressure [Left Arm] 111/69 137/88 Blood Pressure Mean Blood Pressure Mean [Left Arm] 83 104 Pulse Oximetry 96 98 Oxygen Delivery Method Room Air Room Air Sepsis Recent Fever Within 48 Hours Sepsis New/Unexplained Change in Mental Status Sepsis Action Taken by Nursing Laboratory Data Result diagrams: 01/09/22 12:57 01/09/22 12:57 Lab Results 01/09/22 01/09/22 01/09/22 Range/Units 11:35 12:37 12:57 WBC 19.27 H (4.8-10.8) K/uL RBC 4.16 L (4.2-5.4) M/uL Hgb 11.9 L (12.0-16.0) g/dL Hct 37.3 (37-47) % MCV 89.7 (80-100) fL MCH 28.6 (25-34) pg MCHC 31.9 L (32-36) g/dL RDW Std Deviation 53.6 H (36.4-46.3) fL RDW Coeff of Jovani 16.6 H (11.5-14.5) % Plt Count 235 (130-400) K/uL MPV 9.9 (7.4-10.4) fL Immature Gran % (Auto) 0.4 % Neut % (Auto) 87.4 % Lymph % (Auto) 4.6 % [place] % (Auto) 7.0 % Eos % (Auto) 0.4 % Baso % (Auto) 0.2 % Neut # (Auto) 16.85 H (1.4-6.5) K/uL Lymph # (Auto) 0.89 L (1.2-3.4) K/uL [place] # (Auto) 1.34 H (0.11-0.59) K/uL Eos # (Auto) 0.07 (0-0.5) K/uL Baso # (Auto) 0.04 (0-0.2) K/uL Immature Gran # (Auto) 0.08 H (0.00-0.02) K/uL Sodium (136-145) mmol/L Potassium (3.5-5.1) mmol/L Chloride (98-107) mmol/L Carbon Dioxide (21-32) mmol/L Anion Gap (3-11) BUN (6-23) mg/dl Creatinine (0.6-1.2) mg/dl Est Cr Clr Drug Dosing ml/min Est GFR ( Amer) ml/min Est GFR (Non-Af Amer) ml/min BUN/Creatinine Ratio (10-20) Glucose (70-99(Fasting)) mg/dl Lactate (0.4-2.0) mmol/L Calcium (8.5-10.1) mg/dl Phosphorus 4.1 (2.5-4.9) mg/dl Magnesium 2.1 (1.7-2.4) mg/dl Total Bilirubin (0.2-1.0) mg/dl AST (13-39) U/L ALT (7-52) U/L Alkaline Phosphatase (34-104) U/L Troponin I High Sens (0-14) pg/ml Total Protein (6.0-8.3) gm/dl Albumin (3.4-5.0) gm/dl Globulin (2.5-4.0) gm/dl Albumin/Globulin Ratio (0.9-2) Lipase (11-82) U/L Urine Color Dark Yellow Urine Appearance Cloudy A (Clear) Urine pH 5.0 (4.5-7.5) Ur Specific [place] 1.018 (1.000-1.030) Urine Protein Trace H (Negative) Urine Glucose (UA) Negative (Negative) Urine Ketones Trace H (Negative) Urine Blood Negative (Negative) Urine Nitrite Negative (Negative) Urine Bilirubin 1+ H (Negative) Urine Urobilinogen Negative (Negative) Ur Leukocyte Esterase Negative (Negative) Urine WBC (Auto) 1-5 (0-5) /hpf Urine RBC (Auto) 0-4 (0-4) /hpf U Hyaline Cast (Auto) 1-5 (0-5) /lpf U Epithel Cells (Auto) 10-20 H (0-5) /lpf Urine Bacteria (Auto) 1+ H (Negative) Urine Yeast Not Reportable SARS-CoV-2, RNA, NAAT (NEGATIVE) 01/09/22 01/09/22 01/09/22 Range/Units 12:57 13:04 16:47 WBC (4.8-10.8) K/uL RBC (4.2-5.4) M/uL Hgb (12.0-16.0) g/dL Hct (37-47) % MCV (80-100) fL MCH (25-34) pg MCHC (32-36) g/dL RDW Std Deviation (36.4-46.3) fL RDW Coeff of Jovani (11.5-14.5) % Plt Count (130-400) K/uL MPV (7.4-10.4) fL Immature Gran % (Auto) % Neut % (Auto) % Lymph % (Auto) % [place] % (Auto) % Eos % (Auto) % Baso % (Auto) % Neut # (Auto) (1.4-6.5) K/uL Lymph # (Auto) (1.2-3.4) K/uL [place] # (Auto) (0.11-0.59) K/uL Eos # (Auto) (0-0.5) K/uL Baso # (Auto) (0-0.2) K/uL Immature Gran # (Auto) (0.00-0.02) K/uL Sodium 146 H (136-145) mmol/L Potassium 3.2 L (3.5-5.1) mmol/L Chloride 107 (98-107) mmol/L Carbon Dioxide 26 (21-32) mmol/L Anion Gap 13 H (3-11) BUN 57 H (6-23) mg/dl Creatinine 2.81 H (0.6-1.2) mg/dl Est Cr Clr Drug Dosing 8.5 ml/min Est GFR ( Amer) 16.7 ml/min Est GFR (Non-Af Amer) 14.4 ml/min BUN/Creatinine Ratio 20.3 H (10-20) Glucose 88 (70-99(Fasting)) mg/dl Lactate 1.5 (0.4-2.0) mmol/L Calcium 9.2 (8.5-10.1) mg/dl Phosphorus (2.5-4.9) mg/dl Magnesium (1.7-2.4) mg/dl Total Bilirubin 0.7 (0.2-1.0) mg/dl AST 14 (13-39) U/L ALT 11 (7-52) U/L Alkaline Phosphatase 78 (34-104) U/L Troponin I High Sens 38.8 H (0-14) pg/ml Total Protein 6.4 (6.0-8.3) gm/dl Albumin 3.7 (3.4-5.0) gm/dl Globulin 2.7 (2.5-4.0) gm/dl Albumin/Globulin Ratio 1.4 (0.9-2) Lipase 17 (11-82) U/L Urine Color Urine Appearance (Clear) Urine pH (4.5-7.5) Ur Specific [place] (1.000-1.030) Urine Protein (Negative) Urine Glucose (UA) (Negative) Urine Ketones (Negative) Urine Blood (Negative) Urine Nitrite (Negative) Urine Bilirubin (Negative) Urine Urobilinogen (Negative) Ur Leukocyte Esterase (Negative) Urine WBC (Auto) (0-5) /hpf Urine RBC (Auto) (0-4) /hpf U Hyaline Cast (Auto) (0-5) /lpf U Epithel Cells (Auto) (0-5) /lpf Urine Bacteria (Auto) (Negative) Urine Yeast SARS-CoV-2, RNA, NAAT NEGATIVE (NEGATIVE) Administered Medications Discontinued Medications Sodium Chloride (Nss) 500 mls @ 999 mls/hr IV .Q31M ONE Stop: 01/09/22 12:40 Last Admin: 01/09/22 13:21 Dose: 999 mls/hr Documented by: [id number] Imaging Data Radiologist's Impression: Chest X-Ray 01/09/22 12:09 XR chest 1V portable CLINICAL HISTORY: cough. COMPARISON STUDY: 05/26/2019 TECHNIQUE: 1 view of the chest FINDINGS: Single frontal view of the chest demonstrates the heart size to be within normal limits. There is again a moderately ectatic thoracic aorta. There is evidence for a large saccular aneurysm extending from the inferior aspect of the aortic arch to the left which appears to measure approximately 5.7 cm in width and 7.6 cm in length as it extends into the descending thoracic aorta. This appears increased in size if indicated clinically, CT of the chest with contrast would be recommended for further evaluation. The lungs are otherwise clear of alveolar opacities. There is no evidence for pleural effusion. There is no evidence for vascular congestion. There is no acute osseous pathology. IMPRESSION: 1. No acute cardiopulmonary disease. 2. Evidence for increasing size of thoracic aortic aneurysm. ACT 112: Negative or not required by law. Electronically signed by: Brent Lane M.D. 01/09/2022 12:[address] 01/09/22 12:09 CT head/brain wo con CLINICAL HISTORY: barr Technique: Contiguous axial CT images of the head were acquired from the base of the skull to the vertex without intravenous contrast administration. Images were viewed in brain, subdural and bone windows. Automated dose lowering techniques and/or adjustment according to patient size were utilized for this exam. Comparison: Comparison is made to CT head 05/26/2019 Findings: Areas of decreased attenuation are present in the periventricular and subcortical white matter bilaterally consistent with small vessel ischemic disease. Generalized cerebral atrophy with commensurate enlargement of the ventricles, sulci, and cisterns is also present. There is no acute intracranial hemorrhage or evidence of acute territorial infarction. No shift of the midline structures, mass effect, or extra-axial abnormalities are shown. Atherosclerotic calcifications are present in the intracranial segments of the internal carotid arteries. Imaged portions of the paranasal sinuses and mastoid air cells are clear. The orbits appear normal. There are no acute fractures of the calvaria or scalp swelling. Patient is status post cataract repair. Impression: No acute intracranial hemorrhage, no evidence of acute territorial infarction or other acute intracranial disease process. ACT 112: Negative or not required by law. Electronically signed by: Anant Chung M.D. 01/09/2022 12:50 PM Abdomen/Pelvis CT 01/09/22 14:14 CT SCAN OF THE ABDOMEN AND PELVIS WITHOUT IV CONTRAST CLINICAL HISTORY: Nausea and vomiting. Sepsis. COMPARISON STUDY: Abdominal CT dated 12/29/2019. Chest CT dated 01/15/2020. TECHNIQUE: CT scan of the abdomen and pelvis is performed from the lung bases to the proximal femora. Images are reviewed in the axial, sagittal, and coronal planes. IV contrast was not administered for this examination. A dose lowering technique was utilized adhering to the principles of ALARA. CT DOSE: 232.15 mGy.cm FINDINGS: Lung bases: The heart is top normal in size and without pericardial effusion. There are coronary artery calcifications. Ectasia of the ascending thoracic aorta is partially visualized. This measures up to 3.7 cm in diameter. There is aneurysmal dilatation of the descending thoracic aorta. This measures up to 5.5 cm maximum dimension. The aorta measures 4.8 cm above the diaphragmatic hiatus. There are bilateral fat-containing Bochdalek hernias. Emphysematous change is noted at the lung bases. Scarring/atelectasis is present at both lung bases, right greater than left. No airspace consolidation typical for pneumonia or pleural effusion is identified. Liver: The unenhanced liver is normal in size, contour, and attenuation. There is no intrahepatic biliary ductal dilatation. Gallbladder: The gallbladder is distended but otherwise normal as visualized. Spleen: Normal in size and attenuation. Pancreas: The unenhanced pancreas is atrophic and grossly unremarkable. Adrenal glands: Unremarkable. Kidneys: The unenhanced kidneys are atrophic and without hydronephrosis. There are no renal calculi identified. Bilateral renal cysts measure up to 6.8 cm. Abdominal vasculature: There is advanced atherosclerotic calcification and ectasia of the abdominal aorta. Bowel: There is moderate colonic diverticulosis without CT evidence of acute diverticulitis. No bowel obstruction is seen. Suspect mild wall thickening at the left colon with surrounding infiltration. This is greatest involving the rectosigmoid.. The appendix is well-visualized and normal. Peritoneum: There is no intraperitoneal free air or abdominal ascites. Lymphadenopathy: None. Pelvic viscera: The bladder is distended and appears mildly thick-walled. The uterus and adnexa are normal as visualized. Skeletal structures: The skeletal structures are osteopenic. There is a moderate chronic compression deformity of T2. There is increasing collapse of a chronic compression deformity of T3 is compared to previous. A moderate superior end plate compression deformity of T12 is new from 2020. There is chronic posttraumatic deformity of the sacrum and right pubic ring. There is lumbosacral spondylosis Tarlov cysts of the sacrum are incidentally noted and unchanged. No lytic or blastic lesions are seen. IMPRESSION: 1. Findings favor a nonspecific colitis of the left colon. Clinical correlation will be required. 2. Emphysema. 3. There is aneurysmal dilatation of the thoracic aorta, which measures up to 5.5 cm in diameter. The caliber of the descending thoracic aorta has increased as compared to 02/07/2021 when it measured up to 4.5 cm. There is no CT evidence of rupture at this time. 4. The bladder wall appears circumferentially thickened. Correlate with clinical findings and urinalysis. 5. Additional findings as above. ACT 112: Negative or not required by law. Electronically signed by: Antoine Laird M.D. 01/09/2022 3:[address] 01/09/22 15:01 CT OF THE CHEST WITHOUT IV CONTRAST CLINICAL HISTORY: Altered mental status. Nausea. COMPARISON STUDY: Chest CT February 08, 2020. Chest radiograph January 09, 2022. CT DOSE: 207.39 mGy.cm TECHNIQUE: Axial images of the chest were obtained without IV contrast. Images were reviewed in the axial, sagittal, and coronal planes. IV contrast was not administered for this examination. Automated exposure control was utilized for the study. A dose lowering technique was utilized adhering to the principles of ALARA. FINDINGS: A large thoracic aortic aneurysm is again noted. This has moderately increased in size since CT of February 08, 2020. Proximal descending thoracic aorta measures 6.3 cm in caliber. It previously measured 5.1 cm. The distal thoracic aorta measures 5.7 cm. It previously measured 4.5 cm. There is no evidence for rupture. This is suboptimally assessed on this unenhanced exam. Extensive mural thrombus is present. Mild dilatation of the ascending aorta, measuring 4 cm, is noted. No pericardial effusion is present. Trace left pleural effusion is noted. There is no pneumothorax. No consolidation is identified to suggest pneumonia. Subpleural right lung opacities favor atelectasis or scarring. There is moderate emphysema. Multiple old thoracic spine compression deformities are unchanged. Abdomen and pelvis CT will be reported separately. Water attenuation bilateral renal lesions likely reflect cysts. Abdominal aortic aneurysm is better depicted on that exam as well. IMPRESSION: 1. Large thoracic aortic aneurysm, moderately increased in size since CT of February 08, 2020. The aorta measures up to 6.3 cm in caliber. 2. Emphysema. 3. No consolidation to suggest pneumonia. 4. Trace left pleural effusion. ACT 112: Negative or not required by law. Electronically signed by: Randall Dahl M.D. 01/09/2022 3:40 PM Discharge Plan Visit Data Chief Complaint: Weakness ED Provider: Gigi Shirley Discharge Problem: Colitis, Thoracic aortic aneurysm (TAA), MISSY (acute kidney injury), Weakness, Leukocytosis Forms Stand Alone Forms: My [facility] [employer] Prescriptions Prescriptions: No Action albuterol sulfate 90 mcg/actuation HFA aerosol inhaler 1 inh inhalation QID PRN (Reason: shortness of breath or wheezing) Qty: 8.5 RF: 4 budesonide-formoterol [Symbicort] 80-4.5 mcg/actuation HFA aerosol inhaler 2 puff inhalation BID Qty: 10.2 RF: 2 (DME) Spacer for Inhaler Misc See Rx Instructions .Route Qty: 1 RF: 0 atenolol 25 mg tablet 25 mg PO QAM RF: 0 duloxetine [Cymbalta] 20 mg capsule,delayed release(DR/EC) 20 mg PO QAM RF: 0 cholecalciferol (vitamin D3) [Vitamin D3] 50 mcg (2,000 unit) capsule 2,000 unit PO QAM RF: 0 memantine 28 mg capsule,sprinkle,ER 24hr 28 mg PO QAM RF: 0 pantoprazole 40 mg tablet,delayed release (DR/EC) 40 mg PO QAM RF: 0 Ocuvite with Lutein 300 mcg-200 mg-27 mg-2 mg tablet 1 tab PO QAM RF: 0 Referrals Referrals: Issac Pimentel MD [Primary Care Provider] -
[2022-01-09 12:25] LABS: Bilirubin Urine 1+ (Negative)
[2022-01-09 12:30] LABS: Bacteria Urine Automated 1+ (Negative)
--- NOTE | 2022-01-09 12:48 | XRay Report ---
XR chest 1V portable CLINICAL HISTORY: cough. COMPARISON STUDY: 05/26/2019 TECHNIQUE: 1 view of the chest FINDINGS: Single frontal view of the chest demonstrates the heart size to be within normal limits. There is aga in a moderately ectatic thoracic aorta. There is evidence for a large saccular aneurysm extending fro m the inferior aspect of the aortic arch to the left which appears to measure approximately 5.7 cm in width and 7.6 cm in length as it extends into the descending thoracic aorta. This appears increased in size if indicated clinically, CT of the chest with contrast would be recommended for further evalu ation. The lungs are otherwise clear of alveolar opacities. There is no evidence for pleural effusion. Ther e is no evidence for vascular congestion. There is no acute osseous pathology. IMPRESSION: 1. No acute cardiopulmonary disease. 2. Evidence for increasing size of thoracic aortic aneurysm. ACT 112: Negative or not required by law. Electronically signed by: Brent Lane M.D. 01/09/2022 12:47 PM
--- NOTE | 2022-01-09 12:52 | CT Scan Report ---
CT head/brain wo con CLINICAL HISTORY: barr Technique: Contiguous axial CT images of the head were acquired from the base of the skull to the carson samuel without intravenous contrast administration. Images were viewed in brain, subdural and bone [facility]. Automated dose lowering techniques and/or adjustment according to patient size were utilized for this exam. Comparison: Comparison is made to CT head 05/26/2019 Findings: Areas of decreased attenuation are present in the periventricular and subcortical white matter bilate rally consistent with small vessel ischemic disease. Generalized cerebral atrophy with commensurate e nlargement of the ventricles, sulci, and cisterns is also present. There is no acute intracranial hem orrhage or evidence of acute territorial infarction. No shift of the midline structures, mass effect, or extra-axial abnormalities are shown. Atherosclerotic calcifications are present in the intracran ial segments of the internal carotid arteries. Imaged portions of the paranasal sinuses and mastoid air cells are clear. The orbits appear normal. There are no acute fractures of the calvaria or scalp swelling. Patient is status post cataract repa ir. Impression: No acute intracranial hemorrhage, no evidence of acute territorial infarction or other acute intracra nial disease process. ACT 112: Negative or not required by law. Electronically signed by: Anant Chung M.D. 01/09/2022 12:50 PM
[2022-01-09 13:18] LABS: Basophils # (auto) 0.04 K/uL (0-0.2); Basophils % (auto) 0.2 %; Eosinophils # (auto) 0.07 K/uL (0-0.5); Eosinophils % (auto) 0.4 %; Hematocrit (blood only) 37.3 % (37-47); Hemoglobin 11.9 g/dL (12.0-16.0); Immature Granulocytes # (auto) 0.08 K/uL (0.00-0.02); Immature Granulocytes % (auto) 0.4 %; Lymphocytes # (auto) 0.89 K/uL (1.2-3.4); Lymphocytes % (auto) 4.6 %; Mean Corpuscular Hemoglobin 28.6 pg (25-34); Mean Corpuscular Hgb Conc 31.9 g/dL (32-36); Mean Corpuscular Volume 89.7 fL (80-100); Mean Platelet Volume 9.9 fL (7.4-10.4); Monocytes # (auto) 1.34 K/uL (0.11-0.59); Neutrophils # (auto) 16.85 K/uL (1.4-6.5); Neutrophils % (auto) 87.4 %; Platelet Count 235 K/uL (130-400); RDW Coefficient of Variation 16.6 % (11.5-14.5); RDW Standard Deviation 53.6 fL (36.4-46.3); Red Blood Count 4.16 M/uL (4.2-5.4); White Blood Count 19.27 K/uL (4.8-10.8)
[2022-01-09 13:46] LABS: Troponin I High Sensitivity 38.8 pg/ml (0-14)
[2022-01-09 13:52] LABS: Albumin Globulin Ratio 1.4 (0.9-2); Albumin Level 3.7 gm/dl (3.4-5.0); BUN Creatinine Ratio 20.3 (10-20); Bilirubin,Total 0.7 mg/dl (0.2-1.0); Calcium 9.2 mg/dl (8.5-10.1); Creatinine Clr Calc Pharmacy 8.5 ml/min; Est GFR (African American) 16.7 ml/min; Est GFR (Non-African American) 14.4 ml/min; Globulin 2.7 gm/dl (2.5-4.0); Potassium 3.2 mmol/L (3.5-5.1); Total Protein 6.4 gm/dl (6.0-8.3)
--- NOTE | 2022-01-09 15:15 | CT Scan Report ---
CT SCAN OF THE ABDOMEN AND PELVIS WITHOUT IV CONTRAST CLINICAL HISTORY: Nausea and vomiting. Sepsis. COMPARISON STUDY: Abdominal CT dated 12/29/2019. Chest CT dated 01/15/2020. TECHNIQUE: CT scan of the abdomen and pelvis is performed from the lung bases to the proximal femora. Images are reviewed in the axial, sagittal, and coronal planes. IV contrast was not administered for this examination. A dose lowering technique was utilized adhering to the principles of ALARA. CT DOSE: 232.15 mGy.cm FINDINGS: Lung bases: The heart is top normal in size and without pericardial effusion. There are coronary jamarcus ry calcifications. Ectasia of the ascending thoracic aorta is partially visualized. This measures up to 3.7 cm in diameter. There is aneurysmal dilatation of the descending thoracic aorta. This measures up to 5.5 cm maximum dimension. The aorta measures 4.8 cm above the diaphragmatic hiatus. There are bilateral fat-containing Bochdalek hernias. Emphysematous change is noted at the lung bases. Scarring /atelectasis is present at both lung bases, right greater than left. No airspace consolidation typica l for pneumonia or pleural effusion is identified. Liver: The unenhanced liver is normal in size, contour, and attenuation. There is no intrahepatic randy iary ductal dilatation. Gallbladder: The gallbladder is distended but otherwise normal as visualized. Spleen: Normal in size and attenuation. Pancreas: The unenhanced pancreas is atrophic and grossly unremarkable. Adrenal glands: Unremarkable. Kidneys: The unenhanced kidneys are atrophic and without hydronephrosis. There are no renal calculi i dentified. Bilateral renal cysts measure up to 6.8 cm. Abdominal vasculature: There is advanced atherosclerotic calcification and ectasia of the abdominal a lazaro. Bowel: There is moderate colonic diverticulosis without CT evidence of acute diverticulitis. No bowel obstruction is seen. Suspect mild wall thickening at the left colon with surrounding infiltration. T his is greatest involving the rectosigmoid.. The appendix is well-visualized and normal. Peritoneum: There is no intraperitoneal free air or abdominal ascites. Lymphadenopathy: None. Pelvic viscera: The bladder is distended and appears mildly thick-walled. The uterus and adnexa are n ormal as visualized. Skeletal structures: The skeletal structures are osteopenic. There is a moderate chronic compression deformity of T2. There is increasing collapse of a chronic compression deformity of T3 is compared to previous. A moderate superior end plate compression deformity of T12 is new from 2020. There is synchro assembler josé miguel posttraumatic deformity of the sacrum and right pubic ring. There is lumbosacral spondylosis Tarl ov cysts of the sacrum are incidentally noted and unchanged. No lytic or blastic lesions are seen. IMPRESSION: 1. Findings favor a nonspecific colitis of the left colon. Clinical correlation will be required. 2. Emphysema. 3. There is aneurysmal dilatation of the thoracic aorta, which measures up to 5.5 cm in diameter. The caliber of the descending thoracic aorta has increased as compared to 02/07/2021 when it measured up to 4.5 cm. There is no CT evidence of rupture at this time. 4. The bladder wall appears circumferentially thickened. Correlate with clinical findings and urinaly sis. 5. Additional findings as above. ACT 112: Negative or not required by law. Electronically signed by: Antoine Laird M.D. 01/09/2022 3:13 PM
[2022-01-09] MEDS ORDERED: PIPERACILLIN/TAZOBACTAM 4.5 GM/120 ML BAG IV ONE (15:34)
[2022-01-09] MEDS ORDERED: FIDAXOMICIN 200 MG TAB PO STA (15:40)
--- NOTE | 2022-01-09 15:41 | CT Scan Report ---
CT OF THE CHEST WITHOUT IV CONTRAST CLINICAL HISTORY: Altered mental status. Nausea. COMPARISON STUDY: Chest CT February 08, 2020. Chest radiograph January 09, 2022. CT DOSE: 207.39 mGy.cm TECHNIQUE: Axial images of the chest were obtained without IV contrast. Images were reviewed in the axial, sagittal, and coronal planes. IV contrast was not administered for this examination. Automat ed exposure control was utilized for the study. A dose lowering technique was utilized adhering to t he principles of ALARA. FINDINGS: A large thoracic aortic aneurysm is again noted. This has moderately increased in size sin ce CT of February 08, 2020. Proximal descending thoracic aorta measures 6.3 cm in caliber. It previously measured 5.1 cm. The distal thoracic aorta measures 5.7 cm. It previously measured 4.5 cm. There is n o evidence for rupture. This is suboptimally assessed on this unenhanced exam. Extensive mural thromb us is present. Mild dilatation of the ascending aorta, measuring 4 cm, is noted. No pericardial effus ion is present. Trace left pleural effusion is noted. There is no pneumothorax. No consolidation is i dentified to suggest pneumonia. Subpleural right lung opacities favor atelectasis or scarring. There is moderate emphysema. Multiple old thoracic spine compression deformities are unchanged. Abdomen and pelvis CT will be reported separately. Water attenuation bilateral renal lesions likely reflect cyst s. Abdominal aortic aneurysm is better depicted on that exam as well. IMPRESSION: 1. Large thoracic aortic aneurysm, moderately increased in size since CT of February 08, 2020. The aorta measures up to 6.3 cm in caliber. 2. Emphysema. 3. No consolidation to suggest pneumonia. 4. Trace left pleural effusion. ACT 112: Negative or not required by law. Electronically signed by: Randall Dahl M.D. 01/09/2022 3:40 PM
[2022-01-09] MEDS ORDERED: POTASSIUM CHLORIDE CRTAB 20 MEQ TABCR PO STA ×2 (15:56→21:10)
[2022-01-09] MEDS ORDERED: LACTATED RINGER'S 500 ML IV ONE (16:00)
--- NOTE | 2022-01-09 16:07 | History & Physical Report ---
Date of Service January 09, 2022 Assessment & Plan (1) Colitis: Plan: Presentation consistent with infection. Most likely colitis rather than UTI given only 1+ bacteria on UA and WBC 19. Suspected c. diff colitis Lactate pending NSS 500ml bolus given in ER Zosyn discontinued prior to being given. Start Dificid 200mg PO BID. Follow up blood, urine cultures and stool PCR to determine ongoing treatment but lower suspicion of alternative infections therefore will hold off empiric antibiotics currently. (2) MISSY (acute kidney injury): Plan: Cr 2.81 from 0.86. Suspect pre-renal due to diarrhea. 500ml NSS and 500ml LR bolus given in ER. Continue IV fluids @ 1.5x maintenance LR @ 120 ml/hr (3) GERD (gastroesophageal reflux disease): Plan: Continue pantoprazole 40mg PO daily (4) Peripheral vascular disease: Plan: Significant PVD with No flow identified within the distal left posterior tibial and peroneal arteries. Consult vascular surgery but do not think there is an acute occlusion based on history and scan results. Currently not amenable to angiography with MISSY regardless. Possibly improvement with IV hydration. Consider antiplatelet/statin. (5) Thoracic aortic aneurysm (TAA): Plan: Concerning large increase in size to 6.3cm. Given increased size and PVD will consult vascular surgery Plan: VTE Prophylaxis - heparin 5000 units BID Diet - regular, easy to chew, speech eval Disposition - admit to med/tele due to MISSY Admission and Anticipated Discharge Date Admission Date: January 09, 2022 History of Present Illness Chief Complaint: Generalized weakness, reduced appetite Primary Care Provider: Issac Pimentel MD Irma Lui is an 86 year old female with dementia who presents to the ER with generalized weakness, reduced appetite, diarrhea. Unable to get any history from the patient due to dementia and history is taken from daughter at bedside. Diarrhea has been ongoing for the last month but much worse in the last week. Watery. Patient eating and drinking significantly less. She went to respite care for two weeks but currently her daughter is unable to care for her at home and she is concerned about a UTI. No known recent antibiotics. In the ER WBC 19.27, CT A/P concerning for non specific colitis without ileus. Creatinine 2.81 from baseline 0.86. She was diagnosed with MISSY, colitis with leucocytosis and referred to medicine for admission and ongoing management of this. She was initially ordered Zosyn by the ER provider however this was discontinued prior to being given and switched to Dificid given concern for c. diff from history. Of note when examined she was noted to have poor perfusion to her left foot compared to right and unable to palpate pulses. Cap refill approximately 6-7s. Left foot was painful on movement but not to touch (notably right foot was just as painful on movement). Given this examination finding she underwent US jamarcus rial doppler extensive atherosclerotic plaque in left lower extremity with no flow in distal left posterior tibial and peroneal arteries. On further discussion with her daughter she does not think there is any new acute change in her left foot. It has always been more clue than the right. It has always been painful which has been put down to arthritis in the past. At rest the patient denies any pain in this foot. Allergies Allergy/AdvReac Type Severity Reaction Status Date / Time hydrocodone [From [place]] Allergy Hallucinati Verified 01/09/22 16:08 ng tramadol Allergy Hallucinati Verified 01/09/22 16:08 ng Home Medications Medication Instructions Recorded Confirmed Type albuterol sulfate 90 mcg/actuation 1 inh INHALATION QID PRN #8.5 g 05/16/21 01/09/22 Rx aerosol inhaler budesonide-formoterol HFA 80 2 puff INHALATION BID #10.2 g 05/16/21 01/09/22 Rx mcg-4.5 mcg/actuation aerosol inhaler (Symbicort) Spacer for Inhaler #1 ea 05/17/21 01/09/22 Rx atenolol 25 mg tablet 25 mg PO QAM 01/09/22 01/09/22 History cholecalciferol (vitamin D3) 50 2,000 unit PO QAM 01/09/22 01/09/22 History mcg (2,000 unit) capsule (Vitamin D3) duloxetine 20 mg capsule,delayed 20 mg PO QAM 01/09/22 01/09/22 History release (Cymbalta) memantine 28 mg capsule 28 mg PO QAM 01/09/22 01/09/22 History sprinkle,extended release 24hr pantoprazole 40 mg tablet,delayed 40 mg PO QAM 01/09/22 01/09/22 History release vit A 300 mcg-C 200 mg-E 27 1 tab PO QAM 01/09/22 01/09/22 History mg-lutein 2 mg and minerals tablet (Ocuvite with Lutein) Past Med/Surg History Medical History Acute metabolic encephalopathy Altered mental status ARF (acute renal failure) Chronic kidney disease, stage 3a Colitis Dementia History of fracture of clavicle HTN (hypertension) Hypothermia Hypoxia Nausea vomiting and diarrhea Numbness in left leg Pelvic fracture Surgical History History of section History of hysterectomy S/P hysterectomy Family History Mother Cancer Breast cancer Father Alcohol abuse Sister Diabetes Hypothyroidism Brother Diabetes Denies family history of Ovarian cancer Prostate cancer Myocardial infarction Colorectal cancer Social History Smoking Status: Former smoker Tobacco Type: Cigarettes Hx Alcohol Use: No Hx Substance Use: No Preferred Language: Liberian Communication Ability: confusion Digester Required: No Beliefs That Will Affect Care: None marital status: / Current Living Situation: Family Current Living Situation Comment: with daughter and son-in-law Other Information That Helps Us Care for You: No Feels Safe at Home: Yes Safety Concerns: Feels Safe At This Time Physical Activity Frequency: Daily Seatbelt Use: always Assistive Devices: Denture - Upper and Walker Assistive Devices Comment: partial upper denture Review of Systems Review of Systems: Unobtainable due to cognitive status Physical Exam Constitutional: well developed and + frail appearing; + not well nourished and no acute distress Eyes: PERRL, conjunctivae normal, anicteric sclerae Neck: trachea midline, no thyromegaly Respiratory: normal respiratory effort, lungs clear to auscultation Cardiovascular: RRR, no murmur, no edema Vessels: + posterior tibial pulses abnormal (left) and + dorsalis pedis pulses abnormal (left) Extremities: + abnormal capillary refill (4s right foot, 6-7s left foot) and no calf tenderness Gastrointestinal (Abdomen): Inspection/Auscultation: + hyperactive bowel sounds Percussion/Palpation: + abdomen tender (mild intemittent right sided) and abdomen soft; no guarding and abdomen not rigid Neurologic: moves all extremities, awake and + confused Psychiatric: Orientation: alert; + not oriented x 3 Genitourinary: no CVA tenderness Results & Data Results & Data ([facility]) Vital Signs (Past 12 Hours) Vital Signs Temp Pulse Pulse Resp BP BP Pulse Ox 01/09/22 14:00 61 18 111/69 96 01/09/22 13:00 94 01/09/22 12:59 56 L 19 116/67 96 01/09/22 11:27 36.6 C 60 19 116/[address] OF THE CHEST WITHOUT IV CONTRAST CLINICAL HISTORY: Altered mental status. Nausea. COMPARISON STUDY: Chest CT February 08, 2020. Chest radiograph January 09, 2022. CT DOSE: 207.39 mGy.cm TECHNIQUE: Axial images of the chest were obtained without IV contrast. Images were reviewed in the axial, sagittal, and coronal planes. IV contrast was not administered for this examination. Automated exposure control was utilized for the study. A dose lowering technique was utilized adhering to the principles of ALARA. FINDINGS: A large thoracic aortic aneurysm is again noted. This has moderately increased in size since CT of February 08, 2020. Proximal descending thoracic aorta measures 6.3 cm in caliber. It previously measured 5.1 cm. The distal thoracic aorta measures 5.7 cm. It previously measured 4.5 cm. There is no evidence for rupture. This is suboptimally assessed on this unenhanced exam. Extensive mural thrombus is present. Mild dilatation of the ascending aorta, measuring 4 cm, is noted. No pericardial effusion is present. Trace left pleural effusion is noted. There is no pneumothorax. No consolidation is identified to suggest pneumonia. Subpleural right lung opacities favor atelectasis or scarring. There is moderate emphysema. Multiple old thoracic spine compression deformities are unchanged. Abdomen and pelvis CT will be reported separately. Water attenuation bilateral renal lesions likely reflect cysts. Abdominal aortic aneurysm is better depicted on that exam as well. IMPRESSION: 1. Large thoracic aortic aneurysm, moderately increased in size since CT of February 08, 2020. The aorta measures up to 6.3 cm in caliber. 2. Emphysema. 3. No consolidation to suggest pneumonia. 4. Trace left pleural effusion. CT SCAN OF THE ABDOMEN AND PELVIS WITHOUT IV CONTRAST CLINICAL HISTORY: Nausea and vomiting. Sepsis. COMPARISON STUDY: Abdominal CT dated 12/29/2019. Chest CT dated 01/15/2020. TECHNIQUE: CT scan of the abdomen and pelvis is performed from the lung bases to the proximal femora. Images are reviewed in the axial, sagittal, and coronal planes. IV contrast was not administered for this examination. A dose lowering technique was utilized adhering to the principles of ALARA. CT DOSE: 232.15 mGy.cm FINDINGS: Lung bases: The heart is top normal in size and without pericardial effusion. There are coronary artery calcifications. Ectasia of the ascending thoracic aorta is partially visualized. This measures up to 3.7 cm in diameter. There is aneurysmal dilatation of the descending thoracic aorta. This measures up to 5.5 cm maximum dimension. The aorta measures 4.8 cm above the diaphragmatic hiatus. There are bilateral fat-containing Bochdalek hernias. Emphysematous change is noted at the lung bases. Scarring/atelectasis is present at both lung bases, right greater than left. No airspace consolidation typical for pneumonia or pleural effusion is identified. Liver: The unenhanced liver is normal in size, contour, and attenuation. There is no intrahepatic biliary ductal dilatation. Gallbladder: The gallbladder is distended but otherwise normal as visualized. Spleen: Normal in size and attenuation. Pancreas: The unenhanced pancreas is atrophic and grossly unremarkable. Adrenal glands: Unremarkable. Kidneys: The unenhanced kidneys are atrophic and without hydronephrosis. There are no renal calculi identified. Bilateral renal cysts measure up to 6.8 cm. Abdominal vasculature: There is advanced atherosclerotic calcification and ectasia of the abdominal aorta. Bowel: There is moderate colonic diverticulosis without CT evidence of acute diverticulitis. No bowel obstruction is seen. Suspect mild wall thickening at the left colon with surrounding infiltration. This is greatest involving the rectosigmoid.. The appendix is well-visualized and normal. Peritoneum: There is no intraperitoneal free air or abdominal ascites. Lymphadenopathy: None. Pelvic viscera: The bladder is distended and appears mildly thick-walled. The uterus and adnexa are normal as visualized. Skeletal structures: The skeletal structures are osteopenic. There is a moderate chronic compression deformity of T2. There is increasing collapse of a chronic compression deformity of T3 is compared to previous. A moderate superior end plate compression deformity of T12 is new from 2020. There is chronic posttraumatic deformity of the sacrum and right pubic ring. There is lumbosacral spondylosis Tarlov cysts of the sacrum are incidentally noted and unchanged. No lytic or blastic lesions are seen. IMPRESSION: 1. Findings favor a nonspecific colitis of the left colon. Clinical correlation will be required. 2. Emphysema. 3. There is aneurysmal dilatation of the thoracic aorta, which measures up to 5.5 cm in diameter. The caliber of the descending thoracic aorta has increased as compared to 02/07/2021 when it measured up to 4.5 cm. There is no CT evidence of rupture at this time. 4. The bladder wall appears circumferentially thickened. Correlate with clinical findings and urinalysis. 5. Additional findings as above. Medications Administered ER Medications Given: NSS 500ml bolus ECG Indication: altered mental status Rate (beats per minute): 61 Rhythm: normal sinus Findings: + nonspecific-ST abn (anterior) and + T-wave inversion (Anterolateral) Comparison ECG Date: from (December 28, 2019) Change: the following changes noted (TWI is new) Code Status & VTE Plan Code Status DNR/DNI VTE Prophylaxis Plan VTE Prophylaxis will be ordered: Yes PG Care Time/CCT Total # of Minutes Spent Total Time Spent with Patient: Total time spent is greater than 50% in coordination of care (as documented) at patient's floor/unit and/or counseling patient: Coding Level of Care Code 13795 Initial Inpt Care Lvl 3 Diagnoses Colitis K52.9 MISSY (acute kidney injury) N17.9 GERD (gastroesophageal reflux disease) K21.9 Peripheral vascular disease I73.9 Thoracic aortic aneurysm (TAA) I71.2 Presence of rupture: without rupture (1) Thoracic aortic aneurysm (TAA) Presence of rupture: without rupture Qualified Code(s): I71.2 - Thoracic aortic aneurysm, without rupture
[2022-01-09 16:55] LABS: Magnesium 2.1 mg/dl (1.7-2.4); Phosphorus 4.1 mg/dl (2.5-4.9)
--- NOTE | 2022-01-09 17:23 | Electrocardiogram Report ---
Test Reason : Blood Pressure : / mmHG Vent. Rate : 061 BPM Atrial Rate : 061 BPM P-R Int : 140 ms QRS Dur : 084 ms QT Int : 424 ms P-R-T Axes : 049 034 223 degrees QTc Int : 426 ms Normal sinus rhythm Abnormal ECG When compared with ECG of 28-DEC-2019 08:54, Non-specific change in ST segment in Anterior leads Nonspecific T wave abnormality, worse in Inferior leads T wave inversion now evident in Anterolateral leads Confirmed by En Daiyl ([id number]) on 01/09/2022 5:23:12 PM Referred By: REFERRED SELF Confirmed By:Guero Daily
[2022-01-09] MEDS ORDERED: PIPERACILLIN/TAZOBACTAM 4.5 GM/120ML D5W IV ONE (17:26)
[2022-01-09 17:30] LABS: Appearance Urine Clear (Clear); Bacteria Urine Automated Negative (Negative); Bilirubin Urine Negative (Negative); Blood Urine 1+ (Negative); Color Urine Yellow; Glucose Urine UA Negative (Negative); Ketones Urine Negative (Negative); Leukocyte Esterase Urine Negative (Negative); Nitrite Urine Negative (Negative); Protein Urine Negative (Negative); RBC Urine Automated 0-4 /hpf (0-4); Specific Gravity Urine 1.009 (1.000-1.030); Urobilinogen Urine Negative (Negative); pH Urine 6.5 (4.5-7.5)
--- NOTE | 2022-01-09 18:26 | Ultrasound Report ---
LEFT LOWER EXTREMITY ARTERIAL DOPPLER ULTRASOUND CLINICAL HISTORY: pulseless cold left foot COMPARISON STUDY: No previous studies for comparison. TECHNIQUE: Color and duplex Doppler sonography of the arterial system of the left lower extremity was performed. FINDINGS: There is extensive atherosclerotic plaque within the left lower extremity. Triphasic flow i s noted within the left common femoral artery. There is biphasic flow within the proximal left superf icial femoral artery. Note is made of probable occlusion of the distal left superficial femoral arter y with distal reconstitution. However, flow within the left popliteal artery is markedly dampened and monophasic. There is monophasic flow within left anterior tibial and dorsalis pedis vessels. No flow is identified within the distal left posterior tibial and peroneal arteries. IMPRESSION: 1. Extensive atherosclerotic plaque within the left lower extremity with occlusion of the distal left superficial femoral artery with markedly dampened, monophasic flow distal to this site of occlusion. 2. No flow identified within the distal left posterior tibial and peroneal arteries. ACT 112: Negative or not required by law. Electronically signed by: Randall Dahl M.D. 01/09/2022 6:24 PM
[2022-01-09] MEDS ORDERED: ALBUTEROL HFA 8 GM INHALER INH PRN (19:09)
[2022-01-09] MEDS: LACTATED RINGER'S 1,000 ML IV SCH (20:14)
[2022-01-09] MEDS: HEPARIN SOD 5,000 UNIT/0.5 ML VIAL SQ SCH ×2 (21:52→21:58)
[2022-01-09] MEDS: FLUTICASONE/VILANTEROL 100/25MCG 14 PUFFS/INHALER INH SCH (21:53)
[2022-01-10] MEDS: Memantine 28 mg capsule,sprinkle,ER 24hr SCH ×3 (01:05→18:27)
[2022-01-10 02:48] LABS: Adenovirus F 40/41 PCR Not Detected (NotDetected); Astrovirus PCR Not Detected (NotDetected); Campylobacter PCR Not Detected (NotDetected); Cryptosporidium PCR Not Detected (NotDetected); Cyclospora cayetanensis PCR Not Detected (NotDetected); Entamoeba histolytica PCR Not Detected (NotDetected); Enteroaggregative E.coli(EAEC) Not Detected (NotDetected); Enteropathogenic E.coli (EPEC) Not Detected (NotDetected); Enterotoxigenic E.coli (ETEC) Not Detected (NotDetected); Giardia lamblia PCR Not Detected (NotDetected); Norovirus GI/GII PCR Not Detected (NotDetected); Plesiomonas shigelloides PCR Not Detected (NotDetected); Rotavirus A PCR Not Detected (NotDetected); Salmonella PCR Not Detected (NotDetected); Sapovirus PCR Not Detected (NotDetected); Shiga-like Toxin E.coli (STEC) Not Detected (NotDetected); Shigella/Enteroinvasive E.coli Not Detected (NotDetected); Vibrio cholerae PCR Not Detected (NotDetected); Vibrio species PCR Not Detected (NotDetected); Yersinia enterocolitica PCR Not Detected (NotDetected)
[2022-01-10 04:14] LABS: Cdiff Antigen Positive; Cdiff Toxin A+B Negative Cdiff Toxin (Negative)
[2022-01-10] MEDS: LACTATED RINGER'S 1,000 ML IV SCH ×3 (04:16→23:02)
--- NOTE | 2022-01-10 07:39 | Hospitalist Progress Note ---
Date of Service January 10, 2022 Assessment & Plan (1) Colitis: Plan: Presentation consistent with infection. Most likely colitis rather than UTI given only 1+ bacteria on UA and WBC 19. Suspected c. diff colitis Lactate normal Follow up blood, urine cultures and stool PCR shows c diff gene not toxin, clinically has colitis, but with no toxin stop deficin, add probiotic and continue supportive care (2) MISSY (acute kidney injury): Plan: Cr 2.81 from 0.86. Suspect pre-renal due to diarrhea. continue ivf stop 01/11/22 (3) GERD (gastroesophageal reflux disease): Plan: Continue pantoprazole 40mg PO daily (4) Peripheral vascular disease: Plan: Significant PVD with No flow identified within the distal left posterior tibial and peroneal arteries. LE arterial doppler with left SFA occlusion despiote imaging no pain or skin breakdown/ischemia (5) Thoracic aortic aneurysm (TAA): Plan: Concerning large increase in size to 6.3cm. Given increased size and SDA occlusion , vascular surgery not available until next week Plan: VTE Prophylaxis - heparin 5000 units BID Diet - regular, easy to chew, speech eval Severe protein-calorie malnutrition Admission and Anticipated Discharge Date Admission Date: January 09, 2022 Subjective pt is severely but pleasantly confused , no focal complaints, bowel movements are decreasing , toxin negative Review of Systems Review of Systems: Unobtainable due to cognitive status Physical Exam Physical Exam: The patient appeared stable Vital signs as documented. Lungs are clear to auscultation and appear unlabored Cardiac exam, Rhythm is regular.. No murmurs, rubs or gallops. Abdominal exam reveals normal bowel sounds, soft non tender, no masses Extremities are nonedematous and both pedal pulses are not able to be palpated, legs are not painful but are cold with delayed cap refill, but on repeated questioning not painful, looks as if pt typically does not walk much Neurologic exam is alert and oriented x1 Skin is without bruises or rashes Psychologically is with dementia Results & Data Results & Data ([facility]) Vital Signs (Past 12 Hours) Vital Signs Temp Pulse Resp BP Pulse Ox 01/10/22 03:10 98.6 F 67 16 111/68 95 01/09/22 23:48 98.6 F 67 18 139/63 93 01/09/22 19:40 98.2 F 64 16 135/84 92 PG Care Time/CCT Total # of Minutes Spent Total Time Spent with Patient: Total time spent is greater than 50% in coordination of care (as documented) at patient's floor/unit and/or counseling patient: Coding Level of Care Code 04813 Subseq Hosp Care Lvl 3 Diagnoses Colitis K52.9 MISSY (acute kidney injury) N17.9 GERD (gastroesophageal reflux disease) K21.9 Peripheral vascular disease I73.9 Thoracic aortic aneurysm (TAA) I71.2 Presence of rupture: without rupture (1) Thoracic aortic aneurysm (TAA) Presence of rupture: without rupture Qualified Code(s): I71.2 - Thoracic aortic aneurysm, without rupture
[2022-01-10 07:52] LABS: Hemoglobin 11.2 g/dL (12.0-16.0); Mean Corpuscular Hemoglobin 29.3 pg (25-34); Mean Corpuscular Volume 91.6 fL (80-100); Mean Platelet Volume 10.2 fL (7.4-10.4); Platelet Count 207 K/uL (130-400); RDW Coefficient of Variation 16.6 % (11.5-14.5); RDW Standard Deviation 55.4 fL (36.4-46.3); Red Blood Count 3.82 M/uL (4.2-5.4); White Blood Count 15.46 K/uL (4.8-10.8)
[2022-01-10 08:10] LABS: Acanthocytes 2+; Basophils # (auto) 0.03 K/uL (0-0.2); Basophils % (auto) 0.2 %; Echinocytes 1+; Eosinophils # (auto) 0.11 K/uL (0-0.5); Eosinophils % (auto) 0.7 %; Immature Granulocytes # (auto) 0.05 K/uL (0.00-0.02); Immature Granulocytes % (auto) 0.3 %; Lymphocytes # (auto) 0.93 K/uL (1.2-3.4); Monocytes # (auto) 0.85 K/uL (0.11-0.59); Monocytes % (auto) 5.5 %; Neutrophils # (auto) 13.49 K/uL (1.4-6.5); Neutrophils % (auto) 87.3 %; Ovalocytes 1+; Poikilocytosis Present; Schistocytes 1+
[2022-01-10 08:14] LABS: Albumin Globulin Ratio 1.3 (0.9-2); Albumin Level 3.1 gm/dl (3.4-5.0); BUN Creatinine Ratio 24.9 (10-20); Bilirubin,Total 0.6 mg/dl (0.2-1.0); Calcium 8.6 mg/dl (8.5-10.1); Creatinine Clr Calc Pharmacy 12.7 ml/min; Est GFR (Non-African American) 23.3 ml/min; Globulin 2.4 gm/dl (2.5-4.0); Magnesium 1.8 mg/dl (1.7-2.4); Phosphorus 2.7 mg/dl (2.5-4.9); Potassium 3.4 mmol/L (3.5-5.1); Total Protein 5.5 gm/dl (6.0-8.3)
[2022-01-10] MEDS: CHOLECALCIFEROL 1,000 UNITS 25 MCG TAB PO SCH (08:27)
[2022-01-10] MEDS: DULoxetine HCL 20 MG CAP PO SCH (08:27)
[2022-01-10] MEDS: PANTOprazole 40 MG TAB PO SCH (08:28)
[2022-01-10] MEDS: HEPARIN SOD 5,000 UNIT/0.5 ML VIAL SQ SCH ×2 (08:28→21:04)
[2022-01-10] MEDS ORDERED: FIDAXOMICIN 200 MG TAB PO SCH (09:00)
[2022-01-10] MEDS: SACCHAROMYCES BOULARDII 250 MG CAP PO SCH (18:46)
[2022-01-10] MEDS: FLUTICASONE/VILANTEROL 100/25MCG 14 PUFFS/INHALER INH SCH (23:04)
[2022-01-10] MEDS ORDERED: MICONAZOLE NITRATE POWDER 43 GM EXT PRN (23:35)
[2022-01-11] MEDS ORDERED: ONDANSETRON INJ 2 MG/ML 2 ML VIAL IV PRN (00:47)
[2022-01-11] MEDS: PANTOprazole 40 MG TAB PO SCH (09:00)
[2022-01-11] MEDS: DULoxetine HCL 20 MG CAP PO SCH (09:00)
[2022-01-11] MEDS: CHOLECALCIFEROL 1,000 UNITS 25 MCG TAB PO SCH (09:00)
[2022-01-11] MEDS: HEPARIN SOD 5,000 UNIT/0.5 ML VIAL SQ SCH (09:00)
[2022-01-11 09:06] LABS: Basophils # (auto) 0.02 K/uL (0-0.2); Basophils % (auto) 0.2 %; Eosinophils # (auto) 0.07 K/uL (0-0.5); Eosinophils % (auto) 0.6 %; Hematocrit (blood only) 31.1 % (37-47); Hemoglobin 10.2 g/dL (12.0-16.0); Immature Granulocytes # (auto) 0.02 K/uL (0.00-0.02); Immature Granulocytes % (auto) 0.2 %; Lymphocytes # (auto) 0.86 K/uL (1.2-3.4); Lymphocytes % (auto) 7.7 %; Mean Corpuscular Hemoglobin 29.5 pg (25-34); Mean Corpuscular Hgb Conc 32.8 g/dL (32-36); Mean Corpuscular Volume 89.9 fL (80-100); Mean Platelet Volume 9.8 fL (7.4-10.4); Monocytes # (auto) 0.65 K/uL (0.11-0.59); Monocytes % (auto) 5.8 %; Neutrophils # (auto) 9.57 K/uL (1.4-6.5); Neutrophils % (auto) 85.5 %; Platelet Count 218 K/uL (130-400); RDW Coefficient of Variation 16.4 % (11.5-14.5); RDW Standard Deviation 53.5 fL (36.4-46.3); Red Blood Count 3.46 M/uL (4.2-5.4); White Blood Count 11.19 K/uL (4.8-10.8)
[2022-01-11 09:26] LABS: Albumin Globulin Ratio 1.3 (0.9-2); Albumin Level 2.9 gm/dl (3.4-5.0); Bilirubin,Total 0.6 mg/dl (0.2-1.0); Calcium 8.6 mg/dl (8.5-10.1); Creatinine Clr Calc Pharmacy 21.7 ml/min; Est GFR (African American) 45.8 ml/min; Est GFR (Non-African American) 39.5 ml/min; Globulin 2.3 gm/dl (2.5-4.0); Potassium 3.1 mmol/L (3.5-5.1); Total Protein 5.2 gm/dl (6.0-8.3)
[2022-01-11] MEDS: ASPIRIN 81 MG ECTAB PO SCH (10:23)
[2022-01-11] MEDS: SACCHAROMYCES BOULARDII 250 MG CAP PO SCH (10:23)
[2022-01-11] MEDS: LACTATED RINGER'S 1,000 ML IV SCH (11:45)
[2022-01-11] MEDS ORDERED: Heparin IV Adult Wt-Based Standard WITH Bolus Protocol IV SCH (14:14)
[2022-01-11] MEDS ORDERED: HEPARIN SOD (PORCINE) 1000 UNIT/ML IV ONE (14:26)
[2022-01-11] MEDS ORDERED: HEPARIN IV BOLUS 3,000 UNITS in SYRINGE 0 ML IV ONE (15:15)
--- NOTE | 2022-01-11 15:20 | Vascular Medicine Consultation ---
Date of Consultation January 11, 2022 Assessment & Plan (1) Peripheral vascular disease: 2. Dementia 3. Resolving MISSY 4. Large thoracic aortic aneurysm with mural thrombus Patient's left foot is cool and digits/forefoot purple in color. Per family report though foot actually looks better than on admit. She has no pain in her left foot and her sensory and motor function is intact. She has a dopplerable left DP pulse and normal capillary refill. On prior arterial duplex was noted to have a distal SFA occlusion but appeared to have collaterals with reconstitution distally and single-vessel runoff via her FRANNY. Overall feel patient's lower extremity arterial disease is likely more chronic than acute with flow at least to the midfoot. With patient's severe dementia, other comorbidities feel there is limited potential net clinical benefit from attempted endovascular intervention. Recommend conservative management. Discussed with patient's daughter Sabrina and she is in agreement. Agree with heparin infusion over the weekend and aspirin. If foot were to rapidly progresses and/or patient develops severe rest pain would recommend transfer to tertiary center for further management if family wishes to be more aggressive/pursue invasive management. History of Present Illness Attending Physician: Norm Perrin MD History of Present Illness Ms. Lui is an 86-year-old woman with a history of dementia, large thoracic aortic aneurysm (>6 cm) seen on medical unit due to PAD and cool left lower extremity. Patient unable to provide significant history. She is pleasant but thinks she is 13 years old and living in [place]. Aside from confusion as to why she is in the hospital she has no complaints. She denies any pain of any kind. Patient was admitted on 01/09 in the setting of decreased p.o. intake, worsening chronic diarrhea and failure to thrive with new acute kidney injury, creatinine up to 2.8. Diarrhea infectious work-up unremarkable. With IV fluids renal function improving, creatinine now down to 1.2. On admission noted to have a left foot that was cool with non-palpable pulses. Arterial duplex obtained which showed occluded left distal SFA with popliteal reconstitution with diminished distal flow but patent FRANNY/DPA. Distal peroneal/[employer] occluded. Today left foot reported to be more purple in color and again cool. She has previously seen Dr. Jackson due to her thoracic aortic aneurysm. Descending thoracic aorta measured 5.[address] 01/2020. Chest CT this admission descending thoracic aorta 6.3 cm with extensive mural thrombus. Patients daughter Sabrina states that patient essentially non-ambulatory at home. Does have pain in her foot when walks but denies rest pain. Daughter feels foot actually looks much better today than on admission. Allergies Allergy/AdvReac Type Severity Reaction Status Date / Time hydrocodone [From [place]] Allergy Hallucinati Verified 01/09/22 16:08 ng tramadol Allergy Hallucinati Verified 01/09/22 16:08 ng Home Medications Medication Instructions Recorded Confirmed Type albuterol sulfate 90 mcg/actuation 1 inh INHALATION QID PRN #8.5 g 05/16/21 01/09/22 Rx aerosol inhaler budesonide-formoterol HFA 80 2 puff INHALATION BID #10.2 g 05/16/21 01/09/22 Rx mcg-4.5 mcg/actuation aerosol inhaler (Symbicort) Spacer for Inhaler #1 ea 05/17/21 01/09/22 Rx atenolol 25 mg tablet 25 mg PO QAM 01/09/22 01/09/22 History cholecalciferol (vitamin D3) 50 2,000 unit PO QAM 01/09/22 01/09/22 History mcg (2,000 unit) capsule (Vitamin D3) duloxetine 20 mg capsule,delayed 20 mg PO QAM 01/09/22 01/09/22 History release (Cymbalta) memantine 28 mg capsule 28 mg PO QAM 01/09/22 01/09/22 History sprinkle,extended release 24hr pantoprazole 40 mg tablet,delayed 40 mg PO QAM 01/09/22 01/09/22 History release vit A 300 mcg-C 200 mg-E 27 1 tab PO QAM 01/09/22 01/09/22 History mg-lutein 2 mg and minerals tablet (Ocuvite with Lutein) Patient History Medical History Acute metabolic encephalopathy Altered mental status ARF (acute renal failure) Chronic kidney disease, stage 3a Colitis Dementia History of fracture of clavicle HTN (hypertension) Hypothermia Hypoxia Nausea vomiting and diarrhea Numbness in left leg Pelvic fracture Surgical History History of section History of hysterectomy S/P hysterectomy Family History Mother Cancer Breast cancer Father Alcohol abuse Sister Diabetes Hypothyroidism Brother Diabetes Denies family history of Ovarian cancer Prostate cancer Myocardial infarction Colorectal cancer Social History Smoking Status: Former smoker Tobacco Type: Cigarettes Hx Alcohol Use: No Hx Substance Use: No Preferred Language: Indonesian Communication Ability: Impaired Computer Teacher Required: No Beliefs That Will Affect Care: None marital status: / Current Living Situation: Family Current Living Situation Comment: with daughter and son-in-law How many Children do You have: 2 Other Information That Helps Us Care for You: No Feels Safe at Home: Yes Safety Concerns: Feels Safe At This Time Physical Activity Frequency: Daily Seatbelt Use: always Assistive Devices: Cane and Walker Assistive Devices Comment: partial upper denture Review of Systems Review of Systems: Unobtainable due to cognitive status Physical Exam Physical Exam: General: Comfortable, thin, no acute distress Eyes: Sclerae anicteric HENT: Oropharynx clear Lungs: Clear to auscultation anteriorly Cardiac: Regular rate and rhythm, 2 out of 6 holosystolic murmur at the apex Abdomen: Soft, nontender Psych: Alert, pleasant, oriented to person only Extremities/Vascular: -- 2+ radial bilaterally -- 2+ femoral bilaterally -- 2+ popliteal on right, nonpalpable popliteal on left -- 2 + DP, diminished PT on right. Dopplerable DP pulse on left. No PT pulse. Capillary refill normal Purpleish discoloration involving all digits on the left extending to forefoot more so on the lateral aspect of the foot. No ulcers. Left foot motor/sensation intact Results & Data ([facility]) Vital Signs (Past 12 Hours) Vital Signs Temp Pulse Pulse Pulse Resp BP BP 01/11/22 15:10 97.3 F L 85 18 166/98 H 01/11/22 11:38 97.3 F L 66 18 155/89 H 01/11/22 08:00 67 01/11/22 07:16 97.9 F 66 20 160/92 H 01/11/22 04:00 97.9 F 73 18 130/74 Pulse Ox 01/11/22 15:10 98 01/11/22 11:38 01/11/22 08:00 01/11/22 07:16 92 01/11/22 04:00 94 PG Care Time/CCT Total # of Minutes Spent Total Time Spent with Patient: Total time spent is greater than 50% in coordination of care (as documented) at patient's floor/unit and/or counseling patient: Coding Level of Care Code 66210 Initial Inpt Care Lvl 3 Diagnoses Peripheral vascular disease I73.9
[2022-01-11 15:45] LABS: Basophils # (auto) 0.02 K/uL (0-0.2); Basophils % (auto) 0.2 %; Eosinophils # (auto) 0.04 K/uL (0-0.5); Eosinophils % (auto) 0.3 %; Hematocrit (blood only) 35.4 % (37-47); Hemoglobin 11.2 g/dL (12.0-16.0); Immature Granulocytes # (auto) 0.02 K/uL (0.00-0.02); Immature Granulocytes % (auto) 0.2 %; Lymphocytes % (auto) 9.9 %; Mean Corpuscular Hemoglobin 28.4 pg (25-34); Mean Corpuscular Volume 89.6 fL (80-100); Mean Platelet Volume 10.1 fL (7.4-10.4); Monocytes # (auto) 0.84 K/uL (0.11-0.59); Monocytes % (auto) 6.9 %; Neutrophils # (auto) 9.98 K/uL (1.4-6.5); Neutrophils % (auto) 82.5 %; Platelet Count 278 K/uL (130-400); RDW Coefficient of Variation 16.6 % (11.5-14.5); RDW Standard Deviation 53.8 fL (36.4-46.3); Red Blood Count 3.95 M/uL (4.2-5.4)
[2022-01-11 16:29] LABS: Mean Corpuscular Hgb Conc 31.6 g/dL (32-36)
[2022-01-11] MEDS: HEPARIN SODIUM/DEXTROSE 25,000 UNITS/500 ML BAG IV SCH (16:44)
--- NOTE | 2022-01-11 17:42 | Hospitalist Progress Note ---
Date of Service January 11, 2022 Assessment & Plan (1) Colitis: Plan: h/o chronic diarrhea, c diff toxin neg gene positive Lactate normal Follow up blood, urine cultures and stool PCR shows c diff gene not toxin, clinically has colitis, but with no toxin stop dificid, add probiotic and continue supportive care (2) Peripheral vascular disease: Plan: Significant PVD with No flow identified within the distal left posterior tibial and peroneal arteries. LE arterial doppler with left SFA occlusion despite imaging no pain or skin breakdown/ischemia, significant worsening started on heparin gtt with improvement did discuss chronic anticoagulation risks with family, if improves maybe consider [facility] AC as is currently on asa (3) MISSY (acute kidney injury): Plan: Cr 2.81 from 0.86. Suspect pre-renal due to diarrhea. ivf stop 01/11/22 (4) GERD (gastroesophageal reflux disease): Plan: Continue pantoprazole 40mg PO daily (5) Thoracic aortic aneurysm (TAA): Plan: Concerning large increase in size to 6.3cm. Given increased size and SDA occlusion , endovascular surgery not available until next week, was seen urgenly but Cardiology for peripheral angio eval, deferred due to comorbidity Plan: VTE Prophylaxis - heparin 5000 units BID Diet - regular, easy to chew, speech eval Severe protein-calorie malnutrition Admission and Anticipated Discharge Date Admission Date: January 09, 2022 Subjective pt is severely but pleasantly confused , no focal complaints, bowel movements are decreasing , c diff toxin negative left foot has been variable, very cyanotic this am, improved with heparin gtt, due to multiple comorbid issues and AAA not a candidate for urgent angioplasty daughter at the [facility] and updated, considering palliative care Review of Systems Review of Systems: Unobtainable due to cognitive status Physical Exam Physical Exam: The patient appeared stable Vital signs as documented. Lungs are clear to auscultation and appear unlabored Cardiac exam, Rhythm is regular.. No murmurs, rubs or gallops. Abdominal exam reveals normal bowel sounds, soft non tender, no masses Extremities are nonedematous and both pedal pulses are not able to be palpated, legs are not painful but are cold with delayed cap refill, but had slight worsening, improved after heparin Neurologic exam is alert and oriented x1 Skin is without bruises or rashes Psychologically is with dementia Results & Data Results & Data ([facility]) Vital Signs (Past 12 Hours) Vital Signs Temp Pulse Pulse Pulse Resp BP BP 01/11/22 16:18 69 01/11/22 15:10 97.3 F L 85 18 166/98 H 01/11/22 11:38 97.3 F L 66 18 155/89 H 01/11/22 08:00 67 01/11/22 07:16 97.9 F 66 20 160/92 H Pulse Ox 01/11/22 16:18 01/11/22 15:10 98 01/11/22 11:38 01/11/22 08:00 01/11/22 07:16 92 PG Care Time/CCT Total # of Minutes Spent Total Time Spent with Patient: Total time spent is greater than 50% in coordination of care (as documented) at patient's floor/unit and/or counseling patient: Coding Level of Care Code 96610 Subseq Hosp Care Lvl 2 Diagnoses Colitis K52.9 MISSY (acute kidney injury) N17.9 GERD (gastroesophageal reflux disease) K21.9 Peripheral vascular disease I73.9 Thoracic aortic aneurysm (TAA) I71.2 Presence of rupture: without rupture (1) Thoracic aortic aneurysm (TAA) Presence of rupture: without rupture Qualified Code(s): I71.2 - Thoracic aortic aneurysm, without rupture
[2022-01-11 17:48] LABS: INR 1.1 (0.9-1.1); Partial Thromboplastin Ratio 1.2; Partial Thromboplastin Time 33.8 Seconds (21.0-31.0); Prothrombin Time 11.4 Seconds (9.0-12.0)
[2022-01-11] MEDS: FLUTICASONE/VILANTEROL 100/25MCG 14 PUFFS/INHALER INH SCH (22:34)
[2022-01-11] MEDS: POTASSIUM CHLORIDE CRTAB 20 MEQ TABCR PO SCH (22:34)
[2022-01-11 23:57] LABS: Partial Thromboplastin Time 136.7 Seconds (21.0-31.0)
[2022-01-12 09:05] LABS: Albumin Globulin Ratio 1.3 (0.9-2); BUN Creatinine Ratio 16.7 (10-20); Bilirubin,Total 0.7 mg/dl (0.2-1.0); Calcium 8.3 mg/dl (8.5-10.1); Creatinine Clr Calc Pharmacy 23.2 ml/min; Est GFR (African American) 49.7 ml/min; Est GFR (Non-African American) 42.9 ml/min; Globulin 2.3 gm/dl (2.5-4.0); Potassium 3.4 mmol/L (3.5-5.1); Total Protein 5.3 gm/dl (6.0-8.3)
[2022-01-12 09:11] LABS: Basophils # (auto) 0.02 K/uL (0-0.2); Basophils % (auto) 0.2 %; Eosinophils # (auto) 0.17 K/uL (0-0.5); Eosinophils % (auto) 1.8 %; Hemoglobin 10.9 g/dL (12.0-16.0); Immature Granulocytes # (auto) 0.05 K/uL (0.00-0.02); Immature Granulocytes % (auto) 0.5 %; Lymphocytes % (auto) 10.4 %; Mean Corpuscular Hemoglobin 28.8 pg (25-34); Mean Corpuscular Hgb Conc 32.1 g/dL (32-36); Mean Corpuscular Volume 89.7 fL (80-100); Monocytes # (auto) 0.84 K/uL (0.11-0.59); Monocytes % (auto) 8.7 %; Neutrophils # (auto) 7.58 K/uL (1.4-6.5); Neutrophils % (auto) 78.4 %; Partial Thromboplastin Ratio > 5.1; Platelet Count 275 K/uL (130-400); RDW Coefficient of Variation 16.3 % (11.5-14.5); RDW Standard Deviation 53.5 fL (36.4-46.3); Red Blood Count 3.79 M/uL (4.2-5.4); White Blood Count 9.66 K/uL (4.8-10.8)
[2022-01-12] MEDS: POTASSIUM CHLORIDE CRTAB 20 MEQ TABCR PO SCH ×2 (09:19→20:35)
[2022-01-12] MEDS: CHOLECALCIFEROL 1,000 UNITS 25 MCG TAB PO SCH (09:19)
[2022-01-12] MEDS: PANTOprazole 40 MG TAB PO SCH (09:19)
[2022-01-12] MEDS: ASPIRIN 81 MG ECTAB PO SCH (09:19)
[2022-01-12] MEDS: SACCHAROMYCES BOULARDII 250 MG CAP PO SCH (09:19)
[2022-01-12] MEDS: DULoxetine HCL 20 MG CAP PO SCH (09:19)
[2022-01-12 09:20] LABS: Partial Thromboplastin Time > 139.0 Seconds (21.0-31.0)
[2022-01-12 11:12] LABS: Partial Thromboplastin Ratio 3.3
[2022-01-12 11:22] LABS: Partial Thromboplastin Time 90.8 Seconds (21.0-31.0)
[2022-01-12] MEDS: HEPARIN SODIUM/DEXTROSE 25,000 UNITS/500 ML BAG IV SCH (16:37)
--- NOTE | 2022-01-12 16:52 | Hospitalist Progress Note ---
Date of Service January 12, 2022 Assessment & Plan (1) Colitis: Plan: h/o chronic diarrhea, c diff toxin neg gene positive Lactate normal Follow up blood, urine cultures and stool PCR shows c diff gene not toxin, clinically has colitis, but with no toxin stop dificid, add probiotic and continue supportive care No diarrhea overninght (2) Peripheral vascular disease: Plan: Large thoracic aortic aneurysm with mural thrombus, on admission heart the left foot was cool with nonpalpable pulses. History of peripheral arterial disease. Arterial duplex showed occluded left distal superior femoral artery with popliteal reconstitution. Started with heparin infusion. Has been evaluated by vascular surgery. (3) MISSY (acute kidney injury): Plan: Cr 2.81 from 0.86. Suspect pre-renal due to diarrhea. ivf stop 01/11/22 (4) GERD (gastroesophageal reflux disease): Plan: Continue pantoprazole 40mg PO daily (5) Thoracic aortic aneurysm (TAA): Plan: Concerning large increase in size to 6.3cm. With thrombus Given increased size and SDA occlusion , evaluated by vascular surgery currently on Heparin Infusion (6) Dementia: Plan: At baseline Plan: VTE Prophylaxis - heparin 5000 units BID Diet - regular, easy to chew, speech eval Severe protein-calorie malnutrition Admission and Anticipated Discharge Date Admission Date: January 09, 2022 Subjective patient seen and examined, confused due to dementia Review of Systems Review of Systems: unable to obtain due to dementia Physical Exam Physical Exam: The patient is awake, alert, confused HEENT--PERRL, EOMI, mucous membranes and oropharynx mildly dry Neck--supple. No JVD. No bruits. Thyroid normal, trachea midline, no adenopathy. Heart--normal S1 and S2. No murmurs, rubs or gallops. Lungs--clear bilaterally, no respiratory distress, no accessory muscle use. Abdomen--normal bowel sounds and soft. Mild epigastric and left sided abdominal pain Extremities--no cyanosis or clubbing. No edema. Dermatologic--normal skin turgor, normal color, no abnormal lymph nodes, no rash. Neurologic--cranial nerves II through XII grossly intact. Rheumatologic--normal range of motion. Psychiatric--normal affect. Results & Data Results & Data ([facility]) Vital Signs (Past 12 Hours) Vital Signs Temp Pulse Pulse Resp BP BP Pulse Ox 01/12/22 15:42 97.5 F L 68 18 175/102 H 97 01/12/22 10:47 97.3 F L 68 22 150/88 H 95 01/12/22 08:24 71 01/12/22 07:00 98.6 F 67 18 158/90 H 93 PG Care Time/CCT Total # of Minutes Spent Total Time Spent with Patient: Total time spent is greater than 50% in coordination of care (as documented) at patient's floor/unit and/or counseling patient: Coding Level of Care Code 60783 Subseq Hosp Care Lvl 2 Diagnoses Colitis K52.9 Peripheral vascular disease I73.9 MISSY (acute kidney injury) N17.9 GERD (gastroesophageal reflux disease) K21.9 Thoracic aortic aneurysm (TAA) I71.2 Presence of rupture: without rupture Dementia F03.90 Dementia behavioral disturbance: without behavioral disturbance Dementia type: unspecified type Time Spent (min) 35 (1) Thoracic aortic aneurysm (TAA) Presence of rupture: without rupture Qualified Code(s): I71.2 - Thoracic aortic aneurysm, without rupture (2) Dementia Dementia behavioral disturbance: without behavioral disturbance Dementia type: unspecified type Qualified Code(s): F03.90 - Unspecified dementia without behavioral disturbance
[2022-01-12 18:24] LABS: Partial Thromboplastin Ratio 1.8
[2022-01-12] MEDS: FLUTICASONE/VILANTEROL 100/25MCG 14 PUFFS/INHALER INH SCH (20:35)
[2022-01-12 20:50] LABS: Partial Thromboplastin Time 50.4 Seconds (21.0-31.0)
[2022-01-12] MEDS ORDERED: HALOPERIDOL LACTATE 5 MG/ML 1 ML VIAL IM STA (21:57)
[2022-01-13 07:57] LABS: Partial Thromboplastin Ratio 2.2
[2022-01-13 07:58] LABS: Partial Thromboplastin Time 59.3 Seconds (21.0-31.0)
[2022-01-13] MEDS: DULoxetine HCL 20 MG CAP PO SCH (08:47)
[2022-01-13] MEDS: SACCHAROMYCES BOULARDII 250 MG CAP PO SCH (08:47)
[2022-01-13] MEDS: CHOLECALCIFEROL 1,000 UNITS 25 MCG TAB PO SCH (08:48)
[2022-01-13] MEDS: ASPIRIN 81 MG ECTAB PO SCH (08:48)
[2022-01-13] MEDS: PANTOprazole 40 MG TAB PO SCH (08:48)
[2022-01-13] MEDS: HEPARIN SODIUM/DEXTROSE 25,000 UNITS/500 ML BAG IV SCH (14:17)
--- NOTE | 2022-01-13 14:35 | Hospitalist Progress Note ---
Date of Service January 13, 2022 Assessment & Plan (1) Colitis: Plan: h/o chronic diarrhea, c diff toxin neg gene positive Lactate normal Follow up blood, urine cultures and stool PCR shows c diff gene not toxin, clinically has colitis, but with no toxin stop dificid, add probiotic and continue supportive care No diarrhea overninght (2) Peripheral vascular disease: Plan: Large thoracic aortic aneurysm with mural thrombus, on admission heart the left foot was cool with nonpalpable pulses. History of peripheral arterial disease. Arterial duplex showed occluded left distal superior femoral artery with popliteal reconstitution. Started with heparin infusion, will look to vascular surgery for guidance no plans for endovascular surgery (3) MISSY (acute kidney injury): Plan: resolved (4) GERD (gastroesophageal reflux disease): Plan: Continue pantoprazole 40mg PO daily (5) Thoracic aortic aneurysm (TAA): Plan: Concerning large increase in size to 6.3cm. With thrombus Given increased size and SDA occlusion , evaluated by vascular surgery currently on Heparin Infusion (6) Dementia: Plan: At baseline Plan: VTE Prophylaxis - heparin 5000 units BID Diet - regular, easy to chew, speech eval Severe protein-calorie malnutrition Admission and Anticipated Discharge Date Admission Date: January 09, 2022 Subjective patient seen and examined, confused due to dementia Review of Systems Review of Systems: unable to obtain due to dementia Physical Exam Physical Exam: The patient is awake, alert, confused HEENT--PERRL, EOMI, mucous membranes and oropharynx mildly dry Neck--supple. No JVD. No bruits. Thyroid normal, trachea midline, no adenopathy. Heart--normal S1 and S2. No murmurs, rubs or gallops. Lungs--clear bilaterally, no respiratory distress, no accessory muscle use. Abdomen--normal bowel sounds and soft. Mild epigastric and left sided abdominal pain Extremities--no cyanosis or clubbing. No edema. Dermatologic--normal skin turgor, normal color, no abnormal lymph nodes, no rash. Neurologic--cranial nerves II through XII grossly intact. Rheumatologic--normal range of motion. Psychiatric--normal affect. Results & Data Results & Data ([facility]) Vital Signs (Past 12 Hours) Vital Signs Temp Pulse Pulse Pulse Resp BP BP 01/13/22 11:26 97.3 F L 80 16 144/85 H 01/13/22 07:41 70 01/13/22 06:40 98.2 F 66 18 150/89 H Pulse Ox 01/13/22 11:26 98 01/13/22 07:41 01/13/22 06:40 94 PG Care Time/CCT Total # of Minutes Spent Total Time Spent with Patient: Total time spent is greater than 50% in coordination of care (as documented) at patient's floor/unit and/or counseling patient: Coding Level of Care Code 11551 Subseq Hosp Care Lvl 2 Diagnoses Colitis K52.9 Peripheral vascular disease I73.9 MISSY (acute kidney injury) N17.9 GERD (gastroesophageal reflux disease) K21.9 Thoracic aortic aneurysm (TAA) I71.2 Presence of rupture: without rupture Dementia F03.90 Dementia behavioral disturbance: without behavioral disturbance Dementia type: unspecified type Time Spent (min) 35 (1) Thoracic aortic aneurysm (TAA) Presence of rupture: without rupture Qualified Code(s): I71.2 - Thoracic aortic aneurysm, without rupture (2) Dementia Dementia behavioral disturbance: without behavioral disturbance Dementia type: unspecified type Qualified Code(s): F03.90 - Unspecified dementia without behavioral disturbance
[2022-01-13] MEDS: FLUTICASONE/VILANTEROL 100/25MCG 14 PUFFS/INHALER INH SCH (21:03)
[2022-01-14 06:42] LABS: Partial Thromboplastin Ratio 2.3
[2022-01-14 06:51] LABS: Partial Thromboplastin Time 62.4 Seconds (21.0-31.0)
[2022-01-14] MEDS: PANTOprazole 40 MG TAB PO SCH (09:53)
[2022-01-14] MEDS: ASPIRIN 81 MG ECTAB PO SCH (09:53)
[2022-01-14] MEDS: CHOLECALCIFEROL 1,000 UNITS 25 MCG TAB PO SCH (09:53)
[2022-01-14] MEDS: DULoxetine HCL 20 MG CAP PO SCH (09:54)
[2022-01-14] MEDS: SACCHAROMYCES BOULARDII 250 MG CAP PO SCH (09:54)
--- NOTE | 2022-01-14 13:39 | Hospitalist Progress Note ---
Date of Service January 14, 2022 Assessment & Plan (1) Colitis: Plan: h/o chronic diarrhea, c diff toxin neg gene positive Lactate normal Follow up blood, urine cultures and stool PCR shows c diff gene not toxin, clinically has colitis, but with no toxin stop dificid, add probiotic and continue supportive care No diarrhea for a couple of days now (2) Peripheral vascular disease: Plan: Large thoracic aortic aneurysm with mural thrombus, on admission heart the left foot was cool with nonpalpable pulses. History of peripheral arterial disease. Arterial duplex showed occluded left distal superior femoral artery with popliteal reconstitution. Started with heparin infusion, will look to vascular surgery for guidance no plans for endovascular surgery (3) MISSY (acute kidney injury): Plan: resolved (4) GERD (gastroesophageal reflux disease): Plan: Continue pantoprazole 40mg PO daily (5) Thoracic aortic aneurysm (TAA): Plan: Concerning large increase in size to 6.3cm. With thrombus Given increased size and SDA occlusion , evaluated by vascular surgery currently on Heparin Infusion (6) Dementia: Plan: At baseline Plan: VTE Prophylaxis - heparin 5000 units BID Diet - regular, easy to chew, speech eval Severe protein-calorie malnutrition Admission and Anticipated Discharge Date Admission Date: January 09, 2022 Subjective patient seen and examined, no new complaints, resting in bed Review of Systems Review of Systems: unable to obtain due to dementia Physical Exam Physical Exam: The patient is awake, alert, confused HEENT--PERRL, EOMI, mucous membranes and oropharynx mildly dry Neck--supple. No JVD. No bruits. Thyroid normal, trachea midline, no adenopathy. Heart--normal S1 and S2. No murmurs, rubs or gallops. Lungs--clear bilaterally, no respiratory distress, no accessory muscle use. Abdomen--normal bowel sounds and soft. Mild epigastric and left sided abdominal pain Extremities--no cyanosis or clubbing. No edema. Dermatologic--normal skin turgor, normal color, no abnormal lymph nodes, no rash. Neurologic--cranial nerves II through XII grossly intact. Rheumatologic--normal range of motion. Psychiatric--normal affect. Results & Data Results & Data ([facility]) Vital Signs (Past 12 Hours) Vital Signs Temp Pulse Pulse Resp BP Pulse Ox 01/14/22 07:55 98.2 F 81 18 157/98 H 91 01/14/22 06:19 70 PG Care Time/CCT Total # of Minutes Spent Total Time Spent with Patient: Total time spent is greater than 50% in coordination of care (as documented) at patient's floor/unit and/or counseling patient: Coding Level of Care Code 28063 Subseq Hosp Care Lvl 2 Diagnoses Colitis K52.9 Peripheral vascular disease I73.9 MISSY (acute kidney injury) N17.9 GERD (gastroesophageal reflux disease) K21.9 Thoracic aortic aneurysm (TAA) I71.2 Presence of rupture: without rupture Dementia F03.90 Dementia behavioral disturbance: without behavioral disturbance Dementia type: unspecified type Time Spent (min) 35 (1) Thoracic aortic aneurysm (TAA) Presence of rupture: without rupture Qualified Code(s): I71.2 - Thoracic aortic aneurysm, without rupture (2) Dementia Dementia behavioral disturbance: without behavioral disturbance Dementia type: unspecified type Qualified Code(s): F03.90 - Unspecified dementia without behavioral disturbance
[2022-01-14] MEDS: HEPARIN SODIUM/DEXTROSE 25,000 UNITS/500 ML BAG IV SCH (15:19)
--- NOTE | 2022-01-14 16:59 | Vascular Medicine ProgressNote ---
Date of Service January 14, 2022 Assessment & Plan (1) Peripheral vascular disease: Plan: 2. Dementia 3. Resolving MISSY 4. Large thoracic aortic aneurysm with mural thrombus Left foot perfusion appears better today than on Friday. Still with no pain. Motor/sensory intact. Feel left lower extremity arterial disease is chronic and will manage conservatively. can discontinue heparin today Continue aspirin Vascular medicine will sign off. Please contact if questions. Admission and Anticipated Discharge Date Admission Date: January 09, 2022 Subjective Resting comfortably. Denies any pain. No new complaints. Review of Systems Review of Systems: Unobtainable due to cognitive status Physical Exam Physical Exam: General: Comfortable, thin, no acute distress Eyes: Sclerae anicteric Lungs: Clear to auscultation anteriorly Cardiac: Regular rate and rhythm, 2 out of 6 holosystolic murmur at the apex Abdomen: Soft, nontender Psych: Alert, pleasant, oriented to person only Extremities/Vascular: -- 2 + DP, diminished PT on right. Dopplerable DP pulse on left. No PT pulse. Capillary refill sluggish in great toe, remaining toes normal Improved discoloration of toes/lateral forefoot No ulcers. Left foot motor/sensation intact Results & Data ([facility]) Vital Signs (Past 12 Hours) Vital Signs Temp Pulse Pulse Resp BP Pulse Ox 01/14/22 14:19 88 01/14/22 07:55 98.2 F 81 18 157/98 H 91 01/14/22 06:19 70 PG Care Time/CCT Total # of Minutes Spent Total Time Spent with Patient: Total time spent is greater than 50% in coordination of care (as documented) at patient's floor/unit and/or counseling patient: Coding Level of Care Code 47029 Subseq Hosp Care Lvl 3 Diagnoses Peripheral vascular disease I73.9
[2022-01-14] MEDS: FLUTICASONE/VILANTEROL 100/25MCG 14 PUFFS/INHALER INH SCH (19:50)
[2022-01-15 07:02] LABS: Hematocrit (blood only) 34.1 % (37-47); Hemoglobin 10.9 g/dL (12.0-16.0); Mean Corpuscular Hemoglobin 28.7 pg (25-34); Mean Corpuscular Volume 89.7 fL (80-100); Mean Platelet Volume 10.1 fL (7.4-10.4); Platelet Count 280 K/uL (130-400); RDW Standard Deviation 52.5 fL (36.4-46.3); White Blood Count 9.57 K/uL (4.8-10.8)
[2022-01-15 07:15] LABS: Partial Thromboplastin Ratio 1.2; Partial Thromboplastin Time 34.1 Seconds (21.0-31.0)
[2022-01-15 07:42] LABS: BUN Creatinine Ratio 13.5 (10-20); Calcium 8.4 mg/dl (8.5-10.1); Creatinine Clr Calc Pharmacy 25.1 ml/min; Est GFR (African American) 55.6 ml/min; Est GFR (Non-African American) 47.9 ml/min; Potassium 3.5 mmol/L (3.5-5.1)
[2022-01-15] MEDS: PANTOprazole 40 MG TAB PO SCH (08:29)
[2022-01-15] MEDS: DULoxetine HCL 20 MG CAP PO SCH (08:29)
[2022-01-15] MEDS: CHOLECALCIFEROL 1,000 UNITS 25 MCG TAB PO SCH (08:29)
[2022-01-15] MEDS: ASPIRIN 81 MG ECTAB PO SCH (08:30)
[2022-01-15] MEDS: SACCHAROMYCES BOULARDII 250 MG CAP PO SCH (08:30)
[2022-01-15] MEDS: ACETAMINOPHEN 325 MG TAB PO PRN (12:54)
--- NOTE | 2022-01-15 14:27 | Electrocardiogram Report ---
Test Reason : Blood Pressure : / mmHG Vent. Rate : 121 BPM Atrial Rate : 121 BPM P-R Int : 124 ms QRS Dur : 068 ms QT Int : 336 ms P-R-T Axes : 051 003 147 degrees QTc Int : 477 ms Poor data quality, interpretation may be adversely affected Sinus tachycardia with Premature atrial complexes T wave abnormality, consider lateral ischemia Abnormal ECG When compared with ECG of 09-JAN-2022 11:15, Premature atrial complexes are now Present Vent. rate has increased BY 60 BPM T wave inversion less evident in Anterior leads Confirmed by John Monahan ([id number]) on 01/15/2022 2:26:53 PM Referred By: REFERRED SELF Confirmed By:John Monahan
--- NOTE | 2022-01-15 15:42 | Hospitalist Progress Note ---
Date of Service January 15, 2022 Assessment & Plan (1) Colitis: Plan: h/o chronic diarrhea, c diff toxin neg gene positive Lactate normal Follow up blood, urine cultures and stool PCR shows c diff gene not toxin, clinically has colitis, but with no toxin stop dificid, add probiotic and continue supportive care No diarrhea for a couple of days now (2) Peripheral vascular disease: Plan: Large thoracic aortic aneurysm with mural thrombus, on admission heart the left foot was cool with nonpalpable pulses. History of peripheral arterial disease. Arterial duplex showed occluded left distal superior femoral artery with popliteal reconstitution. no plans for endovascular surgery Heparin infusion has been stopped, continue ASA (3) MISSY (acute kidney injury): Plan: resolved (4) GERD (gastroesophageal reflux disease): Plan: Continue pantoprazole 40mg PO daily (5) Thoracic aortic aneurysm (TAA): Plan: Concerning large increase in size to 6.3cm. With thrombus Given increased size and SDA occlusion , evaluated by vascular surgery currently on Heparin Infusion (6) Dementia: Plan: At baseline Plan: d/c to SNF when accepted VTE Prophylaxis - heparin 5000 units BID Diet - regular, easy to chew, speech eval Admission and Anticipated Discharge Date Admission Date: January 09, 2022 Subjective patient seen and examined, resting quietly in bed, no new complaints Review of Systems Review of Systems: unable to obtain due to dementia Physical Exam Physical Exam: The patient is awake, alert, confused HEENT--PERRL, EOMI, mucous membranes and oropharynx mildly dry Neck--supple. No JVD. No bruits. Thyroid normal, trachea midline, no adenopathy. Heart--normal S1 and S2. No murmurs, rubs or gallops. Lungs--clear bilaterally, no respiratory distress, no accessory muscle use. Abdomen--normal bowel sounds and soft. Mild epigastric and left sided abdominal pain Extremities--no cyanosis or clubbing. No edema. Dermatologic--normal skin turgor, normal color, no abnormal lymph nodes, no rash. Neurologic--cranial nerves II through XII grossly intact. Rheumatologic--normal range of motion. Psychiatric--normal affect. Results & Data Results & Data ([facility]) Vital Signs (Past 12 Hours) Vital Signs Temp Pulse Pulse Pulse Resp BP BP 01/15/22 15:32 98.2 F 91 H 20 133/89 01/15/22 11:32 97.9 F 99 H 20 113/78 01/15/22 07:37 97.9 F 79 20 140/84 01/15/22 06:20 85 01/15/22 04:26 98.2 F 96 H 20 131/89 Pulse Ox 01/15/22 15:32 93 01/15/22 11:32 94 01/15/22 07:37 91 01/15/22 06:20 01/15/22 04:26 93 PG Care Time/CCT Total # of Minutes Spent Total Time Spent with Patient: Total time spent is greater than 50% in coordination of care (as documented) at patient's floor/unit and/or counseling patient: Coding Level of Care Code 65608 Subseq Hosp Care Lvl 2 Diagnoses Colitis K52.9 Peripheral vascular disease I73.9 MISSY (acute kidney injury) N17.9 GERD (gastroesophageal reflux disease) K21.9 Thoracic aortic aneurysm (TAA) I71.2 Presence of rupture: without rupture Dementia F03.90 Dementia behavioral disturbance: without behavioral disturbance Dementia type: unspecified type Time Spent (min) 35 (1) Thoracic aortic aneurysm (TAA) Presence of rupture: without rupture Qualified Code(s): I71.2 - Thoracic aortic aneurysm, without rupture (2) Dementia Dementia behavioral disturbance: without behavioral disturbance Dementia type: unspecified type Qualified Code(s): F03.90 - Unspecified dementia without behavioral disturbance
[2022-01-15] MEDS: FLUTICASONE/VILANTEROL 100/25MCG 14 PUFFS/INHALER INH SCH (20:20)
[2022-01-15] MEDS: HEPARIN SOD 5,000 UNIT/0.5 ML VIAL SC SCH (20:20)
[2022-01-15] MEDS: METOPROLOL TARTRATE 25 MG TAB PO SCH (20:33)
[2022-01-16] MEDS: DULoxetine HCL 20 MG CAP PO SCH (08:00)
[2022-01-16] MEDS: ASPIRIN 81 MG ECTAB PO SCH (08:00)
[2022-01-16] MEDS: SACCHAROMYCES BOULARDII 250 MG CAP PO SCH (08:01)
[2022-01-16] MEDS: CHOLECALCIFEROL 1,000 UNITS 25 MCG TAB PO SCH (08:01)
[2022-01-16] MEDS: PANTOprazole 40 MG TAB PO SCH (08:01)
[2022-01-16] MEDS: METOPROLOL TARTRATE 25 MG TAB PO SCH ×2 (08:01→20:14)
[2022-01-16] MEDS: HEPARIN SOD 5,000 UNIT/0.5 ML VIAL SC SCH ×3 (09:34→20:15)
--- NOTE | 2022-01-16 16:31 | Hospitalist Progress Note ---
Date of Service January 16, 2022 Assessment & Plan (1) Colitis: Plan: h/o chronic diarrhea, c diff toxin neg gene positive Lactate normal Follow up blood, urine cultures and stool PCR shows c diff gene not toxin, clinically has colitis, but with no toxin stop dificid, add probiotic and continue supportive care No diarrhea for a couple of days now (2) Peripheral vascular disease: Plan: Large thoracic aortic aneurysm with mural thrombus, on admission heart the left foot was cool with nonpalpable pulses. History of peripheral arterial disease. Arterial duplex showed occluded left distal superior femoral artery with popliteal reconstitution. no plans for endovascular surgery Heparin infusion has been stopped, continue ASA (3) MISSY (acute kidney injury): Plan: resolved (4) GERD (gastroesophageal reflux disease): Plan: Continue pantoprazole 40mg PO daily (5) Thoracic aortic aneurysm (TAA): Plan: Concerning large increase in size to 6.3cm. With thrombus Given increased size and SDA occlusion , evaluated by vascular surgery currently on Heparin Infusion (6) Dementia: Plan: At baseline Plan: d/c to SNF when accepted VTE Prophylaxis - heparin 5000 units BID Diet - regular, easy to chew, speech eval Admission and Anticipated Discharge Date Admission Date: January 09, 2022 Subjective patient seen and examined, resting quietly in bed, no new complaints Review of Systems Review of Systems: unable to obtain due to dementia Physical Exam Physical Exam: The patient is awake, alert, confused HEENT--PERRL, EOMI, mucous membranes and oropharynx mildly dry Neck--supple. No JVD. No bruits. Thyroid normal, trachea midline, no adenopathy. Heart--normal S1 and S2. No murmurs, rubs or gallops. Lungs--clear bilaterally, no respiratory distress, no accessory muscle use. Abdomen--normal bowel sounds and soft. Mild epigastric and left sided abdominal pain Extremities--no cyanosis or clubbing. No edema. Dermatologic--normal skin turgor, normal color, no abnormal lymph nodes, no rash. Neurologic--cranial nerves II through XII grossly intact. Rheumatologic--normal range of motion. Psychiatric--normal affect. Results & Data Results & Data ([facility] [place]) Vital Signs (Past 12 Hours) Vital Signs Temp Pulse Pulse Resp BP BP Pulse Ox 01/16/22 15:59 98.1 F 72 20 144/90 H 93 01/16/22 15:50 97.7 F 76 18 146/88 H 93 01/16/22 14:55 73 01/16/22 11:36 97.3 F L 68 18 136/83 95 01/16/22 07:59 97.5 F L 86 16 139/89 93 01/16/22 06:19 82 PG Care Time/CCT Total # of Minutes Spent Total Time Spent with Patient: Total time spent is greater than 50% in coordination of care (as documented) at patient's floor/unit and/or counseling patient: Coding Level of Care Code 26676 Subseq Hosp Care Lvl 2 Diagnoses Colitis K52.9 Peripheral vascular disease I73.9 MISSY (acute kidney injury) N17.9 GERD (gastroesophageal reflux disease) K21.9 Thoracic aortic aneurysm (TAA) I71.2 Presence of rupture: without rupture Dementia F03.90 Dementia behavioral disturbance: without behavioral disturbance Dementia type: unspecified type Time Spent (min) 35 (1) Thoracic aortic aneurysm (TAA) Presence of rupture: without rupture Qualified Code(s): I71.2 - Thoracic aortic aneurysm, without rupture (2) Dementia Dementia behavioral disturbance: without behavioral disturbance Dementia type : unspecified type Qualified Code(s): F03.90 - Unspecified dementia without behavioral disturbance
[2022-01-16] MEDS: ACETAMINOPHEN 325 MG TAB PO PRN (19:09)
[2022-01-16] MEDS: FLUTICASONE/VILANTEROL 100/25MCG 14 PUFFS/INHALER INH SCH (20:15)
[2022-01-17] MEDS: ASPIRIN 81 MG ECTAB PO SCH (08:55)
[2022-01-17] MEDS: METOPROLOL TARTRATE 25 MG TAB PO SCH ×2 (08:55→21:34)
[2022-01-17] MEDS: PANTOprazole 40 MG TAB PO SCH (08:56)
[2022-01-17] MEDS: DULoxetine HCL 20 MG CAP PO SCH (08:56)
[2022-01-17] MEDS: SACCHAROMYCES BOULARDII 250 MG CAP PO SCH (08:56)
[2022-01-17] MEDS: CHOLECALCIFEROL 1,000 UNITS 25 MCG TAB PO SCH (08:56)
[2022-01-17] MEDS: HEPARIN SOD 5,000 UNIT/0.5 ML VIAL SC SCH ×3 (08:57→21:56)
--- NOTE | 2022-01-17 15:12 | Hospitalist Progress Note ---
Date of Service January 17, 2022 Assessment & Plan (1) Colitis: Plan: h/o chronic diarrhea, c diff toxin neg gene positive Lactate normal Follow up blood, urine cultures and stool PCR shows c diff gene not toxin, clinically has colitis, but with no toxin stop dificid, add probiotic and continue supportive care No diarrhea for a couple of days now (2) Peripheral vascular disease: Plan: Large thoracic aortic aneurysm with mural thrombus, on admission heart the left foot was cool with nonpalpable pulses. History of peripheral arterial disease. Arterial duplex showed occluded left distal superior femoral artery with popliteal reconstitution. no plans for endovascular surgery Heparin infusion has been stopped, continue ASA (3) Malnutrition: Plan: patient looks thin, has poor appetite Needs feeding assistance and encouragement Nutritional supplements (4) MISSY (acute kidney injury): Plan: resolved (5) Thoracic aortic aneurysm (TAA): Plan: Concerning large increase in size to 6.3cm. With thrombus Given increased size and SDA occlusion , evaluated by vascular surgery currently on Heparin Infusion (6) GERD (gastroesophageal reflux disease): Plan: Continue pantoprazole 40mg PO daily (7) Dementia: Plan: At baseline Plan: d/c to SNF when accepted VTE Prophylaxis - heparin 5000 units BID Diet - regular, easy to chew, speech eval Admission and Anticipated Discharge Date Admission Date: January 09, 2022 Subjective patient seen and examined, resting quietly in bed, no new complaints, has poor appetite Review of Systems Review of Systems: All systems reviewed are negative, apart from the ones contained in the history. Physical Exam Physical Exam: The patient is awake, alert, thin looking HEENT--PERRL, EOMI, mucous membranes and oropharynx mildly dry Neck--supple. No JVD. No bruits. Thyroid normal, trachea midline, no adenopathy. Heart--normal S1 and S2. No murmurs, rubs or gallops. Lungs--clear bilaterally, no respiratory distress, no accessory muscle use. Abdomen--normal bowel sounds and soft. Mild epigastric and left sided abdominal pain Extremities--no cyanosis or clubbing. No edema. Dermatologic--normal skin turgor, normal color, no abnormal lymph nodes, no rash. Neurologic--cranial nerves II through XII grossly intact. Rheumatologic--normal range of motion. Psychiatric--normal affect. Results & Data Results & Data ([facility]) Vital Signs (Past 12 Hours) Vital Signs Temp Pulse Pulse Resp BP Pulse Ox 01/17/22 15:07 75 01/17/22 10:58 97.7 F 71 15 143/89 H 95 01/17/22 07:28 98.2 F 91 H 16 157/90 H 98 01/17/22 06:10 85 PG Care Time/CCT Total # of Minutes Spent Total Time Spent with Patient: Total time spent is greater than 50% in coordination of care (as documented) at patient's floor/unit and/or counseling patient: Coding Level of Care Code 17011 Subseq Hosp Care Lvl 2 Diagnoses Colitis K52.9 Peripheral vascular disease I73.9 MISSY (acute kidney injury) N17.9 GERD (gastroesophageal reflux disease) K21.9 Thoracic aortic aneurysm (TAA) I71.2 Presence of rupture: without rupture Dementia F03.90 Dementia behavioral disturbance: without behavioral disturbance Dementia type: unspecified type Malnutrition E46 Time Spent (min) 35 (1) Thoracic aortic aneurysm (TAA) Presence of rupture: without rupture Qualified Code(s): I71.2 - Thoracic aortic aneurysm, without rupture (2) Dementia Dementia behavioral disturbance: without behavioral disturbance Dementia type: unspecified type Qualified Code(s): F03.90 - Unspecified dementia without behavioral disturbance
[2022-01-17] MEDS: FLUTICASONE/VILANTEROL 100/25MCG 14 PUFFS/INHALER INH SCH (21:33)
[2022-01-18 08:56] LABS: Hematocrit (blood only) 34.9 % (37-47); Hemoglobin 11.4 g/dL (12.0-16.0); Mean Corpuscular Hemoglobin 29.5 pg (25-34); Mean Corpuscular Hgb Conc 32.7 g/dL (32-36); Mean Corpuscular Volume 90.4 fL (80-100); Mean Platelet Volume 10.1 fL (7.4-10.4); Platelet Count 371 K/uL (130-400); RDW Coefficient of Variation 15.8 % (11.5-14.5); RDW Standard Deviation 52.2 fL (36.4-46.3); Red Blood Count 3.86 M/uL (4.2-5.4); White Blood Count 9.87 K/uL (4.8-10.8)
[2022-01-18] MEDS: CHOLECALCIFEROL 1,000 UNITS 25 MCG TAB PO SCH (09:14)
[2022-01-18] MEDS: SACCHAROMYCES BOULARDII 250 MG CAP PO SCH (09:14)
[2022-01-18] MEDS: ASPIRIN 81 MG ECTAB PO SCH (09:14)
[2022-01-18] MEDS: DULoxetine HCL 20 MG CAP PO SCH (09:15)
[2022-01-18] MEDS: METOPROLOL TARTRATE 25 MG TAB PO SCH (09:15)
[2022-01-18] MEDS: PANTOprazole 40 MG TAB PO SCH (09:16)
[2022-01-18] MEDS: HEPARIN SOD 5,000 UNIT/0.5 ML VIAL SC SCH (09:16)
--- NOTE | 2022-01-18 14:09 | Discharge Summary ---
Date of Service January 18, 2022 Admission HPI Per Admitting Provider Irma Lui is an 86 year old female with dementia who presents to the ER with generalized weakness, reduced appetite, diarrhea. Unable to get any history from the patient due to dementia and history is taken from daughter at bedside. Diarrhea has been ongoing for the last month but much worse in the last week. Watery. Patient eating and drinking significantly less. She went to respite care for two weeks but currently her daughter is unable to care for her at home and she is concerned about a UTI. No known recent antibiotics. In the ER WBC 19.27, CT A/P concerning for non specific colitis without ileus. Creatinine 2.81 from baseline 0.86. She was diagnosed with MISSY, colitis with leucocytosis and referred to medicine for admission and ongoing management of this. She was initially ordered Zosyn by the ER provider however this was discontinued prior to being given and switched to Dificid given concern for c. diff from history. Of note when examined she was noted to have poor perfusion to her left foot compared to right and unable to palpate pulses. Cap refill approximately 6-7s. Left foot was painful on movement but not to touch (notably right foot was just as painful on movement). Given this examination finding she underwent US arterial doppler extensive atherosclerotic plaque in left lower extremity with no flow in distal left posterior tibial and peroneal arteries. On further discussion with her daughter she does not think there is any new acute change in her left foot. It has always been more clue than the right. It has always been painful which has been put down to arthritis in the past. At rest the patient denies any pain in this foot. Principal Diagnosis Arterial occlusion, MISSY, colitis Discharge Exam The patient is awake, alert, thin looking HEENT--PERRL, EOMI, mucous membranes and oropharynx mildly dry Neck--supple. No JVD. No bruits. Thyroid normal, trachea midline, no a denopathy. Heart--normal S1 and S2. No murmurs, rubs or gallops. Lungs--clear bilaterally, no respiratory distress, no accessory muscle use. Abdomen--normal bowel sounds and soft. Mild epigastric and left sided abdominal pain Extremities--no cyanosis or clubbing. No edema. Dermatologic--normal skin turgor, normal color, no abnormal lymph nodes, no rash. Neurologic--cranial nerves II through XII grossly intact. Rheumatologic--normal range of motion. Psychiatric--normal affect. Discharge Data Allergies Allergy/AdvReac Type Severity Reaction Status Date / Time hydrocodone [From [place]] Allergy Hallucinati Verified 01/09/22 16:08 ng tramadol Allergy Hallucinati Verified 01/09/22 16:08 ng Consultations 01/09/22 15:33 ED Decision to Admit Stat 01/11/22 14:07 Consult Cardiology Routine Ordered Studies 01/09/22 12:09 CT head/brain wo con Stat 01/09/22 14:14 CT abd pelvis wo con Stat 01/09/22 15:01 CT chest diagnostic wo con Stat 01/09/22 15:44 US arterial duplex LE LT Urgent Hospital Course (1) Colitis: h/o chronic diarrhea, c diff toxin neg gene positive Lactate normal Follow up blood, urine cultures and stool PCR shows c diff gene not toxin, clinically has colitis, but with no toxin stop dificid, add probiotic and continue supportive care No diarrhea for a couple of days now (2) Peripheral vascular disease: Large thoracic aortic aneurysm with mural thrombus, on admission heart the left foot was cool with nonpalpable pulses. History of peripheral arterial disease. Arterial duplex showed occluded left distal superior femoral artery with popliteal reconstitution. no plans for endovascular surgery Heparin infusion has been stopped, continue ASA (3) Malnutrition: patient looks thin, has poor appetite Needs feeding assistance and encouragement Nutritional supplements (4) MISSY (acute kidney injury): resolved (5) Thoracic aortic aneurysm (TAA): Concerning large increase in size to 6.3cm. With thrombus Given increased size and SDA occlusion , evaluated by vascular surgery currently on Heparin Infusion (6) GERD (gastroesophageal reflux disease): Continue pantoprazole 40mg PO daily (7) Dementia: At baseline d/c to SNF when accepted VTE Prophylaxis - heparin 5000 units BID Diet - regular, easy to chew, speech eval Total Time Total Time Spent Total Time Spent (In Minutes): 35 Discharge Plan Discharge Items Patient Disposition: Transfer Nursing Home Fac Reason For Visit: SUSPECTED C. DIFF COLITIS, MISSY Discharge Diagnosis: colitis, PVD Activity: Resume your previous activity Non-emergency contact: Primary Care Provider Call non-emergency contact if: you have any medication questions Follow-up/Referrals: Issac Pimentel MD [Primary Care Provider] - Diet: Regular Addtl Attending Provider Instructions: please make appointment to follow up with your PCP Pending Studies at Discharge: No Stand-Alone Forms: My [facility] Skilled Items Patient informed of condition?: Yes DNR: Yes Discharge Level of Care: Skilled Communicable Disease: No Discharge Prognosis: Stable Lines: None Urinary Catheter: No Medications and DC Order Prescriptions: New aspirin 81 mg Tablet,Delayed Release (Dr/Ec) 81 mg PO QAM Qty: 30 RF: 0 Continued albuterol sulfate 90 mcg/actuation HFA aerosol inhaler 1 inh inhalation QID PRN (Reason: shortness of breath or wheezing) Qty: 8.5 RF: 4 budesonide-formoterol [Symbicort] 80-4.5 mcg/actuation HFA aerosol inhaler 2 puff inhalation BID Qty: 10.2 RF: 2 (DME) Spacer for Inhaler Misc See Rx Instructions .Route Qty: 1 RF: 0 atenolol 25 mg tablet 25 mg PO QAM RF: 0 duloxetine [Cymbalta] 20 mg capsule,delayed release(DR/EC) 20 mg PO QAM RF: 0 cholecalciferol (vitamin D3) [Vitamin D3] 50 mcg (2,000 unit) capsule 2,000 unit PO QAM RF: 0 memantine 28 mg capsule,sprinkle,ER 24hr 28 mg PO QAM RF: 0 pantoprazole 40 mg tablet,delayed release (DR/EC) 40 mg PO QAM RF: 0 Ocuvite with Lutein 300 mcg-200 mg-27 mg-2 mg tablet 1 tab PO QAM RF: 0 Discharge Orders: Discharge Order (Routine); Ordered 01/18/22 Ordered By: Olena Ruiz Admission Data Admit Date/Time: 01/09/22 16:00 Attending Provider: Olena Ruiz Admit Provider: Quinten Merritt Primary Care Provider: Issac Pimentel V. Other Providers: Quinten Merritt ; Sienna Lazaro [facility] ; Clark Valdivia Other Interventions: Discharge Summary Assessment (RN) Last Done: 01/18/22 09:21 Coding Level of Care Code D/C DAY MANAGEMENT >30 MINS Diagnoses Colitis K52.9 Peripheral vascular disease I73.9 Malnutrition E46 MISSY (acute kidney injury) N17.9 Thoracic aortic aneurysm (TAA) I71.2 Presence of rupture: without rupture GERD (gastroesophageal reflux disease) K21.9 Dementia F03.90 Dementia behavioral disturbance: without behavioral disturbance Dementia type: unspecified type Time Spent (min) 35
== END 2022-01-18 09:30 | DRG 371 ==
LOC: ED 11:05 → 2W 16:00 → SUATTDRO 16:00 → 2W 17:46